=== PATIENT | female | born 1940 | race Caucasian/White ===

== ENCOUNTER 2017-01-28 18:49 | Emergency (ER) | payer MEDICARE, MEDICAID ==
[~2017-01-28] VITALS: Ht 152.4 cm; Wt 70.3 kg
[2017-01-28 19:17] LABS: Basophils # (auto) 0.1 uL; Basophils % (auto) 0.4 % (0.0-2.0); Eosinophils # (auto) 0 uL; Eosinophils % (auto) 0.3 % (0.0-7.0); Hematocrit 40.5 % (36.0-46.0); Hemoglobin 13.3 g/dL (12.2-16.2); Lymphocytes # (auto) 2.8 uL; Lymphocytes % (auto) 19.6 % (10.0-50.0); Mean Corpuscular Hemoglobin 31.4 pg (28.0-32.0); Mean Corpuscular Hgb Conc. 32.9 g/dL (32.0-36.0); Mean Corpuscular Volume 95.5 fL (80.0-100.0); Mean Platelet Volume 7.9 fL (7.4-10.4); Monocytes # (auto) 0.8 uL; Monocytes % (auto) 5.7 % (0.0-12.0); Neutrophils # (auto) 10.4 uL; Platelet Count (auto) 284 10^3/uL (140-450); Red Cell Distribution Width 14.1 % (11.6-16.0); White Blood Cell 14.1 10^3/uL (4.4-10.8)
[2017-01-28 19:44] LABS: Alkaline Phosphatase 70 U/L (45-117); Anion Gap 9 (5-15); Aspartate Aminotransferase 22 U/L (15-37); BUN/Creatinine Ratio 21.4; Bilirubin, Total 0.4 mg/dL (0.2-1.0); Blood Urea Nitrogen 15 mg/dL (7-18); Calcium 8.9 mg/dL (8.5-10.1); Carbon Dioxide 29 mmol/L (21-32); Chloride 100 mmol/L (98-107); GFR African American 105 mL/min; GFR Non-African American 87 mL/min; Glucose 111 mg/dL (74-106); Potassium 3.4 mmol/L (3.5-5.1); Sodium 138 mmol/L (136-145); Total Protein 7.8 g/dL (6.4-8.2)
[2017-01-29 00:16] VITALS: BP 159/79
== END 2017-01-29 00:47 | disposition left against medical advice (07) ==
LOC: ER 18:49
DX: R11.2 Nausea with vomiting, unspecified (principal); Z53.29 Procedure and treatment not carried out because of patient's decision for other reasons; Z88.1 Allergy status to other antibiotic agents; Z88.6 Allergy status to analgesic agent
CPT/HCPCS: 36415; 80053; 84484; 85025; 93005; 94761

== ENCOUNTER 2018-01-22 21:24 | Emergency (ER) | payer MEDICARE, MEDICAID ==
[~2018-01-22] VITALS: Ht 147.3 cm; Wt 68.5 kg
[2018-01-22 21:45] VITALS: BP 195/131
[2018-01-22] MEDS ORDERED: cloNIDine HCL 0.1 MG TAB ONE (21:54)
[2018-01-22] MEDS ORDERED: cloNIDine HCL 0.1 MG TAB PO ONE (22:15)
[2018-01-22 22:16] LABS: Urine Bacteria NONE SEEN /hpf (None Seen); Urine Blood Negative /uL (Negative); Urine Specific Gravity 1.004 (1.001-1.035); Urine WBC <1 /hpf (0 - 5)
[2018-01-23 00:09] LABS: Basophils # (auto) 0.1 uL; Basophils % (auto) 0.9 % (0.0-2.0); Eosinophils # (auto) 0.2 uL; Eosinophils % (auto) 1.9 % (0.0-7.0); Hematocrit 36.7 % (36.0-46.0); Hemoglobin 12.3 g/dL (12.2-16.2); Lymphocytes # (auto) 3.6 uL; Lymphocytes % (auto) 43.5 % (10.0-50.0); Mean Corpuscular Hemoglobin 32.9 pg (28.0-32.0); Mean Corpuscular Hgb Conc. 33.4 g/dL (32.0-36.0); Mean Corpuscular Volume 98.5 fL (80.0-100.0); Monocytes # (auto) 0.8 uL; Monocytes % (auto) 9.7 % (0.0-12.0); Neutrophils # (auto) 3.7 uL; Platelet Count (auto) 230 10^3/uL (140-450); Red Blood Cells 3.73 10^6/uL (4.0-5.20); Red Cell Distribution Width 13.4 % (11.8-14.3); White Blood Cell 8.3 10^3/uL (4.4-10.8)
[2018-01-23 00:12] LABS: Alanine Aminotransferase 35 U/L (13-56); Albumin 3.4 g/dL (3.4-5.0); Anion Gap 11 (5-15); Aspartate Aminotransferase 27 U/L (15-37); BUN/Creatinine Ratio 33.9; Blood Urea Nitrogen 19 mg/dL (7-18); Calcium 8.5 mg/dL (8.5-10.1); Carbon Dioxide 24 mmol/L (21-32); Chloride 105 mmol/L (98-107); GFR African American 136 mL/min; GFR Non-African American 112 mL/min; Glucose 103 mg/dL (74-106); Lipase 157 U/L (73-393); Magnesium 2.2 mg/dL (1.6-2.6); Potassium 3.7 mmol/L (3.5-5.1); Sodium 140 mmol/L (136-145)
[2018-01-23 00:16] LABS: Alkaline Phosphatase 59 U/L (45-117); Bilirubin, Total 0.2 mg/dL (0.2-1.0); Total Protein 7.1 g/dL (6.4-8.2)
== END 2018-01-23 01:48 | disposition left against medical advice (07) ==
LOC: ER 21:28
DX: R10.32 Left lower quadrant pain (principal); Z53.21 Procedure and treatment not carried out due to patient leaving prior to being seen by health care provider
CPT/HCPCS: 36415; 71045; 80053; 81001; 83605; 83690; 83735; 84484; 85025; 93005

== ENCOUNTER 2023-04-15 02:49 | Inpatient (IN) | payer MEDICARE, MEDICAID ==
[~2023-04-15] VITALS: Ht 172.7 cm; Wt 69.4 kg
[2023-04-15 03:40] LABS: Basophils # (auto) 0.1 10 ^3/uL (0-0.2); Basophils % (auto) 0.8 % (0.0-2.0); Eosinophils # (auto) 0.1 10 ^3/uL (0-0.8); Eosinophils % (auto) 0.9 % (0.0-7.0); Hematocrit 35.2 % (36.0-46.0); Hemoglobin 11.9 g/dL (12.2-16.2); Lymphocytes # (auto) 2.7 10 ^3/uL (0.4-5.4); Lymphocytes % (auto) 33.5 % (10.0-50.0); Mean Corpuscular Hemoglobin 32.9 pg (28.0-32.0); Mean Corpuscular Hgb Conc. 33.7 g/dL (32.0-36.0); Mean Corpuscular Volume 97.7 fL (80.0-100.0); Monocytes % (auto) 12.2 % (0.0-12.0); Neutrophils # (auto) 4.3 10 ^3/uL (1.6-8.6); Neutrophils % (auto) 52.6 % (37.0-80.0); Nucleated Red Blood Cells % 0.1 %; Red Blood Cells 3.61 10^6/uL (4.0-5.20); Red Cell Distribution Width 13.9 % (11.8-14.3); White Blood Cell 8.1 10^3/uL (4.4-10.8)
[2023-04-15 03:42] LABS: Albumin 3.3 g/dL (3.4-5.0); Calcium 8.6 mg/dL (8.5-10.1); Potassium 3.3 mmol/L (3.5-5.1)
[2023-04-15 03:45] LABS: BUN/Creatinine Ratio 26.2 (10.0-20.0); Bilirubin, Total 0.3 mg/dL (0.2-1.0); Total Protein 6.7 g/dL (6.4-8.2)
[2023-04-15 06:22] VITALS: PULSE 97; RESP 10; O2SAT 97
[2023-04-15] MEDS ORDERED: POTASSIUM CHL 20 Meq TABLET PO ONE (06:45)
[2023-04-15 08:33] VITALS: PULSE 68; RESP 16
[2023-04-15] MEDS ORDERED: ACETAMINOPHEN 325 MG TAB PO PRN (11:15)
[2023-04-15] MEDS ORDERED: NITROGLYCERIN 0.4 MG SL TAB SL PRN (11:15)
[2023-04-15] MEDS ORDERED: MORPHINE SULFATE 4 MG/ML SYR/VIAL IV PRN (11:15)
[2023-04-15] MEDS ORDERED: ONDANSETRON HCL 4 MG/2 ML VIAL IV PRN (11:15)
[2023-04-15 11:59] LABS: INR 1.05 (0.9-1.15)
[2023-04-15] MEDS ORDERED: hydrALAZINE HCL 20 MG/ML VL IV PRN (13:00)
[2023-04-15] MEDS ORDERED: AMIODARONE HCL 200 MG TAB PO ONE (13:00)
[2023-04-15] MEDS ORDERED: amLODIPine BESYLATE 5 MG TAB PO ONE (13:00)
[2023-04-15 15:11] LABS: Magnesium 2.4 mg/dL (1.6-2.6)
[2023-04-15 16:36] LABS: Urine Bacteria FEW /hpf (None Seen); Urine Blood TRACE /uL (Negative); Urine Specific Gravity 1.014 (1.001-1.035); Urine WBC 2 /hpf (0 - 5)
[2023-04-15 18:27] VITALS: BP 150/57; PULSE 72; RESP 18; TEMP 97.9; O2SAT 98
[2023-04-15 20:00] VITALS: PULSE 76
[2023-04-15 22:00] VITALS: BP 116/38; PULSE 68; RESP 14; TEMP 98; O2SAT 99
[2023-04-15] MEDS ORDERED: ENOXAPARIN SOD 80 MG/0.8ML SYRINGE SC SCH (22:00)
[2023-04-15] MEDS: ATORVASTATIN 20 MG TAB PO SCH ×2 (22:00→22:09)
[2023-04-15] MEDS: SACUBITRIL-VALSARTAN 24mg/26mg TAB PO SCH ×2 (22:00→22:09)
[2023-04-15] MEDS: APIXABAN 2.5 MG TAB PO SCH ×2 (22:00→22:10)
[2023-04-15] MEDS: AMIODARONE HCL 200 MG TAB PO SCH ×2 (22:00→22:10)
[2023-04-16 05:00] VITALS: BP 158/66; PULSE 69; RESP 16; TEMP 98.1; O2SAT 100
[2023-04-16 07:25] LABS: Basophils # (auto) 0.1 10 ^3/uL (0-0.2); Basophils % (auto) 0.8 % (0.0-2.0); Eosinophils # (auto) 0.1 10 ^3/uL (0-0.8); Eosinophils % (auto) 0.9 % (0.0-7.0); Hematocrit 37.9 % (36.0-46.0); Hemoglobin 12.9 g/dL (12.2-16.2); Lymphocytes # (auto) 2.3 10 ^3/uL (0.4-5.4); Lymphocytes % (auto) 31.2 % (10.0-50.0); Mean Corpuscular Hgb Conc. 34.1 g/dL (32.0-36.0); Mean Corpuscular Volume 96.9 fL (80.0-100.0); Monocytes # (auto) 0.7 10 ^3/uL (0-1.3); Monocytes % (auto) 9.2 % (0.0-12.0); Neutrophils # (auto) 4.3 10 ^3/uL (1.6-8.6); Neutrophils % (auto) 57.9 % (37.0-80.0); Nucleated Red Blood Cells % 0.1 %; Red Blood Cells 3.91 10^6/uL (4.0-5.20); White Blood Cell 7.4 10^3/uL (4.4-10.8)
[2023-04-16 07:30] VITALS: PULSE 71
[2023-04-16 07:45] LABS: Albumin 3.4 g/dL (3.4-5.0); Calcium 8.7 mg/dL (8.5-10.1); Potassium 3.7 mmol/L (3.5-5.1)
[2023-04-16 07:50] LABS: Bilirubin, Total 0.4 mg/dL (0.2-1.0)
[2023-04-16] MEDS: APIXABAN 2.5 MG TAB PO SCH (08:28)
[2023-04-16] MEDS: SACUBITRIL-VALSARTAN 24mg/26mg TAB PO SCH (08:28)
[2023-04-16] MEDS: AMIODARONE HCL 200 MG TAB PO SCH (08:37)
[2023-04-16] MEDS ORDERED: APIX2.5T PO (09:09)
[2023-04-16] MEDS ORDERED: SACU1TAB (09:09)
[2023-04-16] MEDS ORDERED: AMIO200T13 PO (09:09)
[2023-04-16] MEDS ORDERED: PANT40T PO (09:09)
[2023-04-16] MEDS ORDERED: CLON0.1T PO (09:13)
[2023-04-16] MEDS ORDERED: LEV25T PO (09:13)
[2023-04-16] MEDS ORDERED: ATOR40TA52 PO (09:13)
[2023-04-16] MEDS ORDERED: METO-289 PO (09:13)
[2023-04-16] MEDS ORDERED: ASPI-325 PO (09:13)
[2023-04-16] MEDS ORDERED: AMLO1TAB22 PO (09:13)
[2023-04-16] MEDS ORDERED: FURO1TAB31 PO (09:13)
[2023-04-16] MEDS ORDERED: METO25TA5 PO (09:33)
[2023-04-16] MEDS ORDERED: SACU1TAB PO (09:34)
[2023-04-16] MEDS ORDERED: MEMA1TAB5 PO (09:35)
[2023-04-16] MEDS ORDERED: ASPirin 81 mg TAB PO SCH (10:00)
[2023-04-16] MEDS ORDERED: PANTOPRAZOLE 40 MG/10 ML VIAL INJ IV SCH (10:00)
[2023-04-16] MEDS ORDERED: amLODIPine BESYLATE 5 MG TAB PO SCH (10:00)
[2023-04-16 12:13] VITALS: BP 133/64; PULSE 74; RESP 18; O2SAT 98
== END 2023-04-16 12:40 | disposition home or self-care (01) | DRG 203 ==
LOC: EDBD 02:49 → ER 02:49 → TELE 11:16 → TELE-EAST 17:22
PROVIDERS: ADMIT Internal Medicine; ATTEND Internal Medicine
DX: M94.0 Chondrocostal junction syndrome [Tietze] (principal); N17.9 Acute kidney failure, unspecified; D64.9 Anemia, unspecified; I44.7 Left bundle-branch block, unspecified; Z95.1 Presence of aortocoronary bypass graft; E03.9 Hypothyroidism, unspecified; E78.5 Hyperlipidemia, unspecified; E87.6 Hypokalemia; N18.9 Chronic kidney disease, unspecified; I16.0 Hypertensive urgency; I12.9 Hypertensive chronic kidney disease with stage 1 through stage 4 chronic kidney disease, or unspecified chronic kidney disease; I25.10 Atherosclerotic heart disease of native coronary artery without angina pectoris; I25.2 Old myocardial infarction; Z79.01 Long term (current) use of anticoagulants; Z95.3 Presence of xenogenic heart valve; Z88.1 Allergy status to other antibiotic agents; Z88.5 Allergy status to narcotic agent; Z88.8 Allergy status to other drugs, medicaments and biological substances; I69.320 Aphasia following cerebral infarction
CPT/HCPCS: 36415; 70450; 71045; 71250; 74176; 80053; 80061; 81001; 83036; 83735; 83880; 84443; 84484; 85025; 85610; 87081; 93005; 93306; G0378

== ENCOUNTER 2023-06-21 09:41 | Emergency (ER) | payer MEDICAID, MEDICARE ==
[~2023-06-21] VITALS: Ht 152.4 cm; Wt 70.0 kg
[~2023-06-21 09:41] MED LIST: AMIO200T13 PO; AMLO1TAB22 PO; APIX2.5T PO; ASPI-325 PO; ATOR40TA52 PO; CLON0.1T PO; FURO1TAB31 PO; LEV25T PO; MEMA1TAB5 PO; METO25TA5 PO; PANT40T PO; SACU1TAB PO
[2023-06-21 10:49] VITALS: BP 158/56; PULSE 57; RESP 20; TEMP 97.4; O2SAT 97
[2023-06-21] MEDS ORDERED: AUG875T PO (11:01)
[2023-06-21] MEDS ORDERED: METH4PAK PO (11:01)
== END 2023-06-21 11:22 | disposition home or self-care (01) ==
LOC: ER 09:41
DX: H66.91 Otitis media, unspecified, right ear (principal); I10 Essential (primary) hypertension; Z88.1 Allergy status to other antibiotic agents; Z88.6 Allergy status to analgesic agent; Z86.73 Personal history of transient ischemic attack (TIA), and cerebral infarction without residual deficits

== ENCOUNTER 2024-01-16 18:39 | Emergency (ER) | payer MEDICARE, MEDICAID ==
[~2024-01-16] VITALS: Ht 152.4 cm; Wt 70.0 kg
[~2024-01-16 18:39] MED LIST changes: +AUG875T PO; +METH4PAK PO
[2024-01-16 18:45] VITALS: BP 129/48; RESP 18; O2SAT 99
[2024-01-16 18:58] VITALS: PULSE 60
[2024-01-16 19:48] LABS: Basophils # (auto) 0.1 10 ^3/uL (0-0.2); Basophils % (auto) 0.9 % (0.0-2.0); Eosinophils # (auto) 0 10 ^3/uL (0-0.8); Eosinophils % (auto) 0.6 % (0.0-7.0); Hematocrit 34.7 % (36.0-46.0); Hemoglobin 11.2 g/dL (12.2-16.2); Lymphocytes # (auto) 2.1 10 ^3/uL (0.4-5.4); Lymphocytes % (auto) 27.6 % (10.0-50.0); Mean Corpuscular Hemoglobin 28.6 pg (28.0-32.0); Mean Corpuscular Hgb Conc. 32.3 g/dL (32.0-36.0); Mean Corpuscular Volume 88.6 fL (80.0-100.0); Monocytes # (auto) 0.8 10 ^3/uL (0-1.3); Monocytes % (auto) 10.7 % (0.0-12.0); Neutrophils # (auto) 4.5 10 ^3/uL (1.6-8.6); Neutrophils % (auto) 60.2 % (37.0-80.0); Red Blood Cells 3.91 10^6/uL (4.0-5.20); Red Cell Distribution Width 15.7 % (11.8-14.3); White Blood Cell 7.5 10^3/uL (4.4-10.8)
[2024-01-16 20:04] LABS: Alanine Aminotransferase 44 U/L (7-40); Albumin 4.3 g/dL (3.2-4.8); Alkaline Phosphatase 77 U/L (46-116); Anion Gap 6 (5-15); Aspartate Aminotransferase 38 U/L (13-40); BUN/Creatinine Ratio 11.5 (10.0-20.0); Blood Urea Nitrogen 11 mg/dL (9-23); Calcium 9.3 mg/dL (8.7-10.4); Carbon Dioxide 29 mmol/L (20-30); Chloride 104 mmol/L (98-107); Glucose 108 mg/dL (74-106); Magnesium 2.1 mg/dL (1.6-2.6); Potassium 3.8 mmol/L (3.5-5.1); Sodium 139 mmol/L (136-145)
[2024-01-16 20:05] LABS: Bilirubin, Total 0.4 mg/dL (0.2-1.0); Total Protein 6.6 g/dL (5.7-8.2)
[2024-01-16 20:06] LABS: INR 1.04 (0.9-1.15); Partial Thromboplastin Time 27.1 SEC (24.5-34.5)
[2024-01-16] MEDS ORDERED: SODIUM CHLORIDE 0.9% 1,000 ML IV ONE (21:00)
== END 2024-01-16 22:00 | disposition left against medical advice (07) ==
LOC: ER 18:39 → EDUNIT# 18:39 → EDBD 18:39 → ER 22:00
DX: R51.9 Headache, unspecified (principal); R06.02 Shortness of breath; I10 Essential (primary) hypertension; Z86.73 Personal history of transient ischemic attack (TIA), and cerebral infarction without residual deficits; Z98.890 Other specified postprocedural states
CPT/HCPCS: 36415; 70450; 71045; 80053; 83735; 84484; 85025; 85610; 85730; 93005

== ENCOUNTER 2024-01-25 10:16 | Inpatient (IN) | payer MEDICARE, MEDICAID ==
[~2024-01-25] VITALS: Ht 152.4 cm; Wt 79.4 kg
[2024-01-25 10:41] VITALS: O2SAT 95
[2024-01-25 10:43] LABS: Basophils # (auto) 0.1 10 ^3/uL (0-0.2); Basophils % (auto) 0.7 % (0.0-2.0); Eosinophils # (auto) 0 10 ^3/uL (0-0.8); Eosinophils % (auto) 0.2 % (0.0-7.0); Hematocrit 34.2 % (36.0-46.0); Hemoglobin 11.1 g/dL (12.2-16.2); Lymphocytes # (auto) 2.3 10 ^3/uL (0.4-5.4); Lymphocytes % (auto) 22.4 % (10.0-50.0); Mean Corpuscular Hemoglobin 28.9 pg (28.0-32.0); Mean Corpuscular Hgb Conc. 32.4 g/dL (32.0-36.0); Mean Corpuscular Volume 89.2 fL (80.0-100.0); Monocytes % (auto) 9.8 % (0.0-12.0); Neutrophils # (auto) 6.9 10 ^3/uL (1.6-8.6); Neutrophils % (auto) 66.9 % (37.0-80.0); Red Blood Cells 3.83 10^6/uL (4.0-5.20); White Blood Cell 10.4 10^3/uL (4.4-10.8)
[2024-01-25 11:02] LABS: Alanine Aminotransferase 50 U/L (7-40); Albumin 4.2 g/dL (3.2-4.8); Alkaline Phosphatase 75 U/L (46-116); Anion Gap 6 (5-15); Aspartate Aminotransferase 48 U/L (13-40); BUN/Creatinine Ratio 15.3 (10.0-20.0); Bilirubin, Total 0.5 mg/dL (0.2-1.0); Blood Urea Nitrogen 13 mg/dL (9-23); Calcium 9.3 mg/dL (8.5-10.1); Carbon Dioxide 28 mmol/L (20-30); Chloride 106 mmol/L (98-107); Glucose 123 mg/dL (74-106); Potassium 3.6 mmol/L (3.5-5.1); Sodium 140 mmol/L (136-145); Total Protein 6.6 g/dL (5.7-8.2)
[2024-01-25] MEDS ORDERED: ACETAMINOPHEN 325 MG TAB PO PRN (11:45)
[2024-01-25] MEDS: FUROSEMIDE 20 MG/2 ML VIAL IV ONE (11:57)
[2024-01-25 12:28] LABS: Urine Bacteria None Seen /hpf (None Seen)
[2024-01-25 12:46] LABS: Urine Blood Negative /uL (Negative); Urine Clarity Clear (Clear); Urine Color Colorless (Yellow); Urine Protein, UAD Negative (Negative); Urine Specific Gravity 1.005 (1.001-1.035); Urine Urobilinogen Normal (Negative); Urine WBC <1 /hpf (0 - 5)
[2024-01-25] MEDS: cloNIDine HCL 0.1 MG TAB PO SCH (14:17)
[2024-01-25 17:34] VITALS: BP 138/52; PULSE 65; RESP 16; TEMP 98; O2SAT 100
[2024-01-25 17:44] VITALS: BP 138/52; PULSE 66; RESP 18; TEMP 97.7; O2SAT 98
[2024-01-25 20:00] VITALS: PULSE 64; RESP 14; O2SAT 93
[2024-01-25 21:00] VITALS: BP 142/56; PULSE 64; RESP 14; TEMP 98.2; O2SAT 93
[2024-01-25] MEDS: SACUBITRIL-VALSARTAN 24mg/26mg TAB PO SCH (22:20)
[2024-01-25] MEDS: ATORVASTATIN 20 MG TAB PO SCH (22:20)
[2024-01-25] MEDS: METOPROLOL TARTRATE 25 MG TAB PO SCH (22:20)
[2024-01-25] MEDS: APIXABAN 2.5 MG TAB PO SCH (22:21)
[2024-01-26] VITALS (8 sets, daily range): BP systolic 99–148; BP diastolic 50–64; PULSE 53–87; RESP 14–18; TEMP 97.4–98.7; O2SAT 94–98
[2024-01-26 05:47] LABS: Basophils # (auto) 0.1 10 ^3/uL (0-0.2); Basophils % (auto) 0.9 % (0.0-2.0); Eosinophils # (auto) 0.1 10 ^3/uL (0-0.8); Eosinophils % (auto) 1.1 % (0.0-7.0); Hematocrit 32.2 % (36.0-46.0); Hemoglobin 10.6 g/dL (12.2-16.2); Lymphocytes # (auto) 2.4 10 ^3/uL (0.4-5.4); Mean Corpuscular Hemoglobin 29.2 pg (28.0-32.0); Mean Corpuscular Volume 88.5 fL (80.0-100.0); Monocytes % (auto) 11.9 % (0.0-12.0); Neutrophils # (auto) 4.9 10 ^3/uL (1.6-8.6); Neutrophils % (auto) 58.1 % (37.0-80.0); Nucleated Red Blood Cells % 0.1 %; Red Blood Cells 3.63 10^6/uL (4.0-5.20); Red Cell Distribution Width 15.6 % (11.8-14.3); White Blood Cell 8.5 10^3/uL (4.4-10.8)
[2024-01-26 06:02] LABS: Alanine Aminotransferase 61 U/L (7-40); Alkaline Phosphatase 69 U/L (46-116); Anion Gap 6 (5-15); Aspartate Aminotransferase 58 U/L (13-40); BUN/Creatinine Ratio 15.2 (10.0-20.0); Blood Urea Nitrogen 14 mg/dL (9-23); Calcium 9.2 mg/dL (8.5-10.1); Carbon Dioxide 30 mmol/L (20-30); Chloride 105 mmol/L (98-107); Glucose 101 mg/dL (74-106); Potassium 3.5 mmol/L (3.5-5.1); Sodium 141 mmol/L (136-145)
[2024-01-26 06:03] LABS: Bilirubin, Total 0.5 mg/dL (0.2-1.0); Total Protein 6.2 g/dL (5.7-8.2)
[2024-01-26] MEDS: amLODIPine BESYLATE 5 MG TAB PO SCH (10:00)
[2024-01-26] MEDS: MEMANTINE HYDROCHLORIDE PO SCH (10:00)
[2024-01-26] MEDS ORDERED: PATIENTS OWN MEDICATION (Atorvastatin Calcium 1 TAB) PO SCH (10:00)
[2024-01-26] MEDS: ASPirin-EC 81 mg tab PO SCH (10:34)
[2024-01-26] MEDS: AMIODARONE HCL 200 MG TAB PO SCH (10:34)
[2024-01-26] MEDS: LEVOTHYROXINE SODIUM 25 MCG TAB PO SCH (10:35)
[2024-01-26] MEDS: PANTOPRAZOLE 40 MG TAB PO SCH (10:35)
[2024-01-26] MEDS: FUROSEMIDE 40 MG/4 ML VIAL IV ONE (17:48)
[2024-01-27] VITALS (8 sets, daily range): BP systolic 114–154; BP diastolic 51–86; PULSE 60–74; RESP 16–20; TEMP 97.6–98.2; O2SAT 94–98
[2024-01-27] MEDS: FUROSEMIDE 20 MG/2 ML VIAL IV SCH (06:47)
[2024-01-27] MEDS: FUROSEMIDE 20 MG TAB PO SCH (18:42)
[2024-01-28 01:00] VITALS: BP 125/71; PULSE 62; RESP 17; TEMP 97.5; O2SAT 94
[2024-01-28 05:00] VITALS: BP 130/61; PULSE 61; RESP 17; TEMP 98.4; O2SAT 94
[2024-01-28 08:00] VITALS: PULSE 65; PULSE 70; RESP 18; O2SAT 94
[2024-01-28 09:00] VITALS: BP 117/40; PULSE 60; RESP 16; TEMP 98.2; O2SAT 97
== END 2024-01-28 12:15 | disposition home health service (06) | DRG 194 ==
LOC: ER 10:16 → EDBD 10:16 → OVERFLOW 11:47 → WEST WING 17:31 → TELE-WESTW 01-26 16:49
PROVIDERS: ADMIT Family Medicine; ATTEND Family Medicine
DX: I11.0 Hypertensive heart disease with heart failure (principal); J96.21 Acute and chronic respiratory failure with hypoxia; F03.90 Unspecified dementia, unspecified severity, without behavioral disturbance, psychotic disturbance, mood disturbance, and anxiety; I50.33 Acute on chronic diastolic (congestive) heart failure; I48.0 Paroxysmal atrial fibrillation; I69.320 Aphasia following cerebral infarction; E78.00 Pure hypercholesterolemia, unspecified; E03.9 Hypothyroidism, unspecified; I44.7 Left bundle-branch block, unspecified; I25.10 Atherosclerotic heart disease of native coronary artery without angina pectoris; D63.8 Anemia in other chronic diseases classified elsewhere; E66.9 Obesity, unspecified; Z95.1 Presence of aortocoronary bypass graft; Z88.1 Allergy status to other antibiotic agents; Z88.5 Allergy status to narcotic agent; Z79.899 Other long term (current) drug therapy; Z80.49 Family history of malignant neoplasm of other genital organs; Z79.01 Long term (current) use of anticoagulants; Z95.2 Presence of prosthetic heart valve; Z68.34 Body mass index [BMI] 34.0-34.9, adult
CPT/HCPCS: 36415; 71045; 76700; 80053; 81001; 83880; 84484; 85025; 87081; 93005; 93306; 97110; 97116; 97163; G0378

== ENCOUNTER 2024-06-13 09:44 | Inpatient (IN) | payer MEDICARE, MEDICAID ==
[~2024-06-13] VITALS: Ht 152.4 cm; Wt 77.5 kg
[~2024-06-13 09:44] MED LIST changes: -AUG875T PO; -METH4PAK PO
[2024-06-13] MEDS: IOHEXOL 350 MG/ML 100ML IJ ONE (11:49)
[2024-06-13 11:58] LABS: Basophils # (auto) 0.1 10 ^3/uL (0-0.2); Basophils % (auto) 0.8 % (0.0-2.0); Eosinophils # (auto) 0 10 ^3/uL (0-0.8); Eosinophils % (auto) 0.4 % (0.0-7.0); Hematocrit 32.1 % (36.0-46.0); Hemoglobin 10.7 g/dL (12.2-16.2); Lymphocytes # (auto) 1.5 10 ^3/uL (0.4-5.4); Lymphocytes % (auto) 16.8 % (10.0-50.0); Mean Corpuscular Hgb Conc. 33.2 g/dL (32.0-36.0); Mean Corpuscular Volume 87.2 fL (80.0-100.0); Monocytes # (auto) 1.1 10 ^3/uL (0-1.3); Monocytes % (auto) 12.8 % (0.0-12.0); Neutrophils # (auto) 6.1 10 ^3/uL (1.6-8.6); Neutrophils % (auto) 69.2 % (37.0-80.0); Nucleated Red Blood Cells % 0.1 %; Platelet Count (auto) 207 10^3/uL (140-450); Red Blood Cells 3.68 10^6/uL (4.0-5.20); Red Cell Distribution Width 16.7 % (11.8-14.3); White Blood Cell 8.9 10^3/uL (4.4-10.8)
[2024-06-13 12:11] LABS: INR 1.08 (0.9-1.15); Prothrombin Time 11.4 sec (9.3-11.8)
[2024-06-13 12:29] LABS: Alanine Aminotransferase 44 U/L (7-40); Alkaline Phosphatase 76 U/L (46-116); Anion Gap 5 (5-15); Aspartate Aminotransferase 43 U/L (13-40); BUN/Creatinine Ratio 16.3 (10.0-20.0); Blood Urea Nitrogen 14 mg/dL (9-23); Calcium 8.8 mg/dL (8.7-10.4); Carbon Dioxide 27 mmol/L (20-30); Chloride 106 mmol/L (98-107); Glucose 124 mg/dL (74-106); Potassium 3.9 mmol/L (3.5-5.1); Sodium 138 mmol/L (136-145)
[2024-06-13 12:30] LABS: Bilirubin, Total 0.3 mg/dL (0.2-1.0)
[2024-06-13] MEDS ORDERED: ONDANSETRON HCL 4 MG/2 ML VIAL IV PRN (14:30)
[2024-06-13] MEDS ORDERED: NITROGLYCERIN 0.4 MG SL TAB SL PRN (14:30)
[2024-06-13] MEDS ORDERED: MORPHINE SULFATE INJ 2 MG/ml SYRG IV PRN (14:30)
[2024-06-13] MEDS: TETANUS-DIPTH-ACEL PERTUSSIS 0.5ML SYR Tdap IM ONE (15:11)
[2024-06-13] MEDS: ceFAZolin 1GM/50ML 50 ML IV ONE (15:16)
[2024-06-13 15:26] VITALS: PULSE 57; RESP 16; O2SAT 97
[2024-06-13] MEDS: SACUBITRIL-VALSARTAN 24mg/26mg TAB PO SCH (22:40)
[2024-06-13] MEDS: ATORVASTATIN 20 MG TAB PO SCH (22:41)
[2024-06-13] MEDS: APIXABAN 2.5 MG TAB PO SCH (22:41)
[2024-06-13] MEDS: METOPROLOL TARTRATE 25 MG TAB PO SCH (22:41)
[2024-06-13 22:47] VITALS: RESP 16; O2SAT 96
[2024-06-13] MEDS ORDERED: POTA-220 PO (23:01)
[2024-06-13] MEDS ORDERED: CYA100I IM (23:01)
[2024-06-13] MEDS ORDERED: LORazepam 2MG/ML-1ML VIAL IV PRN (23:30)
[2024-06-13 23:45] LABS: Triglycerides 148 mg/dL (< 150)
[2024-06-13 23:46] LABS: LDL Cholesterol 81 mg/dL (< 100)
[2024-06-13 23:47] LABS: Cholesterol 144 mg/dL (< 200); HDL Cholesterol 49 mg/dL (40-59)
[2024-06-13 23:50] LABS: Folate (Folic Acid) 12.1 ng/mL (>5.38)
[2024-06-13 23:51] LABS: Free T4 (Free Thyroxine) 1.3 ng/dL (0.89-1.76)
[2024-06-14] VITALS (9 sets, daily range): BP systolic 110–157; BP diastolic 46–85; PULSE 59–66; RESP 16–17; TEMP 97.4–98.4; O2SAT 94–97
[2024-06-14] MEDS: LEVOTHYROXINE SODIUM 25 MCG TAB PO SCH (06:00)
[2024-06-14] MEDS: FUROSEMIDE 40 MG TAB PO SCH (10:21)
[2024-06-14] MEDS: amLODIPine BESYLATE 5 MG TAB PO SCH (10:21)
[2024-06-14] MEDS: PANTOPRAZOLE 40 MG TAB PO SCH (10:22)
[2024-06-14] MEDS: AMIODARONE HCL 200 MG TAB PO SCH (10:22)
[2024-06-14] MEDS: MEMANTINE HCL 5 MG TAB PO SCH (10:26)
[2024-06-14 12:08] LABS: Urine Bacteria None Seen /hpf (None Seen)
[2024-06-14 12:20] LABS: Urine Blood Negative /uL (Negative); Urine Clarity Clear (Clear); Urine Color Colorless (Yellow); Urine Protein, UAD Negative (Negative); Urine Specific Gravity 1.008 (1.001-1.035); Urine Urobilinogen Normal (Negative); Urine WBC 3 /hpf (0 - 5)
[2024-06-14 13:54] LABS: Basophils # (auto) 0.1 10 ^3/uL (0-0.2); Basophils % (auto) 0.6 % (0.0-2.0); Eosinophils # (auto) 0 10 ^3/uL (0-0.8); Eosinophils % (auto) 0.4 % (0.0-7.0); Hematocrit 34.9 % (36.0-46.0); Hemoglobin 11.8 g/dL (12.2-16.2); Lymphocytes % (auto) 20.8 % (10.0-50.0); Mean Corpuscular Hemoglobin 29.4 pg (28.0-32.0); Mean Corpuscular Hgb Conc. 33.7 g/dL (32.0-36.0); Mean Corpuscular Volume 87.3 fL (80.0-100.0); Monocytes # (auto) 0.7 10 ^3/uL (0-1.3); Monocytes % (auto) 7.5 % (0.0-12.0); Neutrophils # (auto) 6.8 10 ^3/uL (1.6-8.6); Neutrophils % (auto) 70.7 % (37.0-80.0); Platelet Count (auto) 221 10^3/uL (140-450); Red Cell Distribution Width 16.6 % (11.8-14.3); White Blood Cell 9.7 10^3/uL (4.4-10.8)
[2024-06-14 14:22] LABS: Alanine Aminotransferase 53 U/L (7-40); Alkaline Phosphatase 82 U/L (46-116); Anion Gap 8 (5-15); Calcium 9.5 mg/dL (8.7-10.4); Carbon Dioxide 27 mmol/L (20-30); Chloride 104 mmol/L (98-107); Potassium 3.3 mmol/L (3.5-5.1); Sodium 139 mmol/L (136-145)
[2024-06-14 14:23] LABS: BUN/Creatinine Ratio 12.4 (10.0-20.0); Blood Urea Nitrogen 11 mg/dL (9-23); Glucose 125 mg/dL (74-106)
[2024-06-14 14:25] LABS: Albumin 4.4 g/dL (3.2-4.8); Aspartate Aminotransferase 59 U/L (13-40); Bilirubin, Total 0.6 mg/dL (0.2-1.0); Total Protein 6.9 g/dL (5.7-8.2)
[2024-06-14] MEDS ORDERED: AMIO200T33 PO (14:28)
[2024-06-14] MEDS ORDERED: CYAN100088 PO (14:28)
[2024-06-14] MEDS ORDERED: POTA-180 PO (14:28)
[2024-06-14] MEDS ORDERED: LEVO25TA6 PO (14:28)
[2024-06-14] MEDS: EMPAGLIFLOZIN 10 MG TAB PO SCH (15:07)
[2024-06-14] MEDS: POTASSIUM CHLORIDE 40 MEQ, LIDOCAINE 1% (LOCAL ANESTH.) 4 ML in SODIUM CHL 0.9% 250 ML IV ONE (17:03)
[2024-06-15] VITALS (8 sets, daily range): BP systolic 99–120; BP diastolic 49–88; PULSE 52–97; RESP 17–20; TEMP 97.5–98.2; O2SAT 88–97
[2024-06-15 14:53] LABS: Basophils # (auto) 0.1 10 ^3/uL (0-0.2); Basophils % (auto) 0.8 % (0.0-2.0); Eosinophils # (auto) 0.1 10 ^3/uL (0-0.8); Eosinophils % (auto) 0.7 % (0.0-7.0); Hematocrit 32.9 % (36.0-46.0); Hemoglobin 10.8 g/dL (12.2-16.2); Lymphocytes % (auto) 24.4 % (10.0-50.0); Mean Corpuscular Hemoglobin 29.3 pg (28.0-32.0); Mean Corpuscular Hgb Conc. 32.9 g/dL (32.0-36.0); Monocytes # (auto) 0.9 10 ^3/uL (0-1.3); Monocytes % (auto) 10.5 % (0.0-12.0); Neutrophils # (auto) 5.3 10 ^3/uL (1.6-8.6); Neutrophils % (auto) 63.6 % (37.0-80.0); Nucleated Red Blood Cells % 0.1 %; Platelet Count (auto) 223 10^3/uL (140-450); Red Cell Distribution Width 17.1 % (11.8-14.3); White Blood Cell 8.3 10^3/uL (4.4-10.8)
[2024-06-15 15:10] LABS: Alanine Aminotransferase 48 U/L (7-40); Alkaline Phosphatase 77 U/L (46-116); Anion Gap 8 (5-15); Aspartate Aminotransferase 52 U/L (13-40); BUN/Creatinine Ratio 10.7 (10.0-20.0); Blood Urea Nitrogen 11 mg/dL (9-23); Calcium 8.9 mg/dL (8.7-10.4); Carbon Dioxide 25 mmol/L (20-31); Chloride 105 mmol/L (98-107); Glucose 119 mg/dL (74-106); Potassium 3.7 mmol/L (3.5-5.1); Sodium 138 mmol/L (136-145)
[2024-06-15 15:12] LABS: Bilirubin, Total 0.3 mg/dL (0.2-1.0); Total Protein 6.3 g/dL (5.7-8.2)
[2024-06-16] VITALS (12 sets, daily range): BP systolic 101–147; BP diastolic 41–169; PULSE 45–74; RESP 15–20; TEMP 97.7–98.4; O2SAT 89–99
[2024-06-16 08:06] LABS: Anion Gap 10 (5-15); Carbon Dioxide 26 mmol/L (20-31); Chloride 104 mmol/L (98-107); Potassium 3.6 mmol/L (3.5-5.1); Sodium 140 mmol/L (136-145)
[2024-06-16 08:07] LABS: Calcium 9.3 mg/dL (8.7-10.4)
[2024-06-16 08:12] LABS: BUN/Creatinine Ratio 15.5 (10.0-20.0); Blood Urea Nitrogen 17 mg/dL (9-23); Glucose 96 mg/dL (74-106)
[2024-06-16] MEDS: MIDAZOLAM HCL 2MG/2ML 2ml VIAL (1mg/ml) IV ONE (09:50)
[2024-06-16] MEDS: LIDOCAINE VISCOUS 2% 15ML UD PO ONE (09:50)
[2024-06-16] MEDS: fentaNYL CITRATE 100 MCG/2 ML VL IV ONE (09:50)
[2024-06-16] MEDS: APIXABAN 5 MG TAB PO SCH (22:24)
[2024-06-17] VITALS (7 sets, daily range): BP systolic 98–128; BP diastolic 51–64; PULSE 59–76; RESP 14–20; TEMP 97.4–98.7; O2SAT 94–98
== END 2024-06-17 18:30 | disposition home health service (06) | DRG 45 ==
LOC: ER 09:44 → TELE 14:32 → TELE-CENTR 21:19
PROVIDERS: ADMIT Registered Nurse General Practice; ATTEND Internal Medicine
PROC: B24BZZ4 Ultrasonography of Heart with Aorta, Transesophageal (ICD-10-PCS; principal; 2024-06-16)
DX: I63.9 Cerebral infarction, unspecified (principal); I21.4 Non-ST elevation (NSTEMI) myocardial infarction; D68.69 Other thrombophilia; D63.8 Anemia in other chronic diseases classified elsewhere; G81.91 Hemiplegia, unspecified affecting right dominant side; R47.01 Aphasia; I48.0 Paroxysmal atrial fibrillation; S05.41XA Penetrating wound of orbit with or without foreign body, right eye, initial encounter; S09.8XXA Other specified injuries of head, initial encounter; E03.9 Hypothyroidism, unspecified; I11.0 Hypertensive heart disease with heart failure; E86.0 Dehydration; E78.5 Hyperlipidemia, unspecified; F03.90 Unspecified dementia, unspecified severity, without behavioral disturbance, psychotic disturbance, mood disturbance, and anxiety; E66.9 Obesity, unspecified; W18.39XA Other fall on same level, initial encounter; I25.10 Atherosclerotic heart disease of native coronary artery without angina pectoris; I08.0 Rheumatic disorders of both mitral and aortic valves; X58.XXXA Exposure to other specified factors, initial encounter; R74.01 Elevation of levels of liver transaminase levels; I50.32 Chronic diastolic (congestive) heart failure; Z95.1 Presence of aortocoronary bypass graft; Y93.89 Activity, other specified; Y92.89 Other specified places as the place of occurrence of the external cause; Y99.8 Other external cause status; Z95.3 Presence of xenogenic heart valve; Z79.899 Other long term (current) drug therapy; Z80.49 Family history of malignant neoplasm of other genital organs; Z79.01 Long term (current) use of anticoagulants; Z68.33 Body mass index [BMI] 33.0-33.9, adult; Z79.82 Long term (current) use of aspirin; Z88.1 Allergy status to other antibiotic agents
CPT/HCPCS: 36415; 70450; 70496; 70551; 71045; 80048; 80053; 80061; 81001; 82607; 82746; 82962; 83735; 83880; 84439; 84443; 84484; 85025; 85610; 85730; 90471; 90715; 93005; 93306; 93312; 96365; 97110; 97116; 97163; 99152; G0378; J2001; J2250

== ENCOUNTER 2024-12-30 10:11 | Inpatient (IN) | payer MEDICARE, MEDICAID ==
[~2024-12-30] VITALS: Ht 152.4 cm; Wt 72.7 kg
[~2024-12-30 10:11] MED LIST changes: -AMIO200T13 PO; +AMIO200T33 PO; -ASPI-325 PO; -CLON0.1T PO; +CYAN100088 PO; -LEV25T PO; +LEVO25TA6 PO; +POTA-180 PO
--- NOTE | 2024-12-30 10:19 | ED.PDOC ---
SOB-HPI HPI Comments HPI: 84 y/o obese F is BIBA for c/o shortness of breath and wheezing, today. Onset of symptoms at 4:30 a.m. this morning when she woke up. She comes from home. Per EMS, pulse ox initially was 90% at room air. Patient does not use oxygen at home. Then reported not to have any lung disease. En route to ED, patient was given two breathing treatment, with improvement to SpO2 of 100%. Patient denies any chest pain, palpitations, cough, congestion, fever, chills, or other associated symptoms at this time. Per EMS patient has dementia and is currently at baseline. 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 REVIEW OF SYSTEMS: CONSTITUTIONAL: Denies acute: fever, diaphoresis, chills, generalized weakness. HEAD: Denies acute: headache, photophobia Eyes: Denies acute: Double vision, vision loss, eye pain, eye discharge. EARS: Denies acute: tinnitus, hearing loss, ear discharge, ear pain, THROAT: Denies acute: sore throat, swelling, difficulty swallowing , pain with swallowing, change in voice. NECK: Denies acute: neck pain, neck swelling, stiff neck. HEART: Denies acute : chest pain, palpitations, LUNGS: Denies acute: wheezing, cough, hemoptysis ABDOMEN: Denies acute: abdominal pain, Nausea, Vomiting, diarrhea, melena , hematemesis, hematochezia SKIN: Denies acute: rash, redness, lesions, itchiness. EXTREMITIES: Denies acute: calf pain, numbness, tingling, weakness, denies pain in extremity. Denies acute: Low back pain. Neuro: Denies acute: focal neurological deficit, motor or sensory focal neurological deficit, tremors, seizure like activity, confusion, dizziness, change in mental status, loss of bowel or bladder function, cauda equina like symptoms. : Denies acute: dysuria, hematuria, flank pain, increase in urinary frequency. PSYCH: Denies acute: hallucination, suicidal ideation, homicidal ideation. FEMALE: Denies acute: abnormal vaginal bleeding, foul odor, unusual discharge. PHYSICAL EXAM: General: -----minimal---acute distress, awake and alert. Head: normocephalic, atraumatic. Neck: supple, trachea is midline, no swelling. Throat: Normal phonation. Eyes:, no erythema, no purulent discharge, no proptosis, no icterus. Heart: regular rate, regular rhythm, no significant murmur appreciated. Lungs: Mild respiratory distress, Able to speak in full sentences. Minimal wheezing, no rhonchi, no crackles. No stridors Patient states improvement since the breathing treatment she received earlier. Abdomen: non tender to palpation, non distended, soft, no guarding, no rebound, + bowel sounds. Neuro: Awake, Alert, oriented to name, self, situation, follows commands GCS=15. Speech is normal. Skin: no petechia, no purpura, no cyanosis, non-pale, not jaundice. Lower extremities: --1/4 b/l - Pitting edema no deformity, no focal swelling, no calf TTP. Makes eye contact. moves all four extremities. Face: no apparent facial droop. 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 Was a procedure done?: No Differential Dx Differential Diagnosis: Other (DDx include ACS, unstable angina, anxiety, PE, pneumothroax, neoplasm, cardiac ischemia, COPD, asthma, CHF, pleural effusion, tobacco abuse, pneumonia, hypoxia, hypercapnia, anemia., infection/sepsis., pulmonary edema. Asthma, Cardiac tamponade, infection.) X-Ray, Labs, Meds, VS Vital Signs Date Time Temp Pulse Resp B/P (MAP) Pulse Ox O2 Delivery O2 Flow Rate FiO2 12/30/24 13:00 64 30 149/51 (83) 96 12/30/24 12:42 143/46 12/30/24 12:00 61 28 143/46 (78) 94 12/30/24 12:00 63 12/30/24 11:37 62 12/30/24 11:00 62 24 149/42 (77) 100 12/30/24 10:52 20 98 Nasal Cannula* 2 28 12/30/24 10:50 Nasal Cannula* 2 28 12/30/24 10:50 98.0 70 17 127/60 (82) 97 98.0 12/30/24 10:25 17 100 Simple Mask* 6 50 12/30/24 10:19 98.0 61 17 126/59 (81) 100 98.0 Lab Test 12/30/24 13:24 12/30/24 12:12 12/30/24 11:56 12/30/24 11:26 Range/Units Troponin I High Sensitivity 55 *H 58 *H </=34 ng/L Thyroid Stimulating Hormone (TSH) 2.49 0.55-4.78 uIU/mL Free Thyroxine (T4) Calculated Pending Urine Color Light-yellow Yellow Urine Clarity Clear Clear Urine pH 6.0 5.0-9.0 Urine Specific [place] 1.023 1.001-1.035 Urine Protein Trace H Negative Urine Ketones Negative Negative Urine Blood Negative Negative /uL Urine Nitrite Negative Negative Urine Bilirubin Negative Negative Urine Urobilinogen Normal Negative mg/dL Urine Leukocyte Esterase 2+ Negative /uL Urine RBC 22 0 - 4 /hpf Urine Microscopic WBC 29 H 0-5 /HPF Urine Squamous Epithelial Cells None seen <5 /hpf Urine Bacteria None seen None Seen /hpf Urine Glucose Normal Normal mg/dL Influenza Type A Antigen Negative Negative Influenza Type B Antigen Negative Negative SARS-CoV-2 Antigen (Rapid) Negative NEGATIVE Test 12/30/24 11:20 12/30/24 10:30 Range/Units Blood Gas Specimen Type Arterial Blood Gas Sample Site Left radial Blood Gas Patient Temperature 37.0 Arterial Blood Date Drawn [id number] Arterial Blood pH 7.493 H 7.350-7.450 Arterial Blood Partial Pressure CO2 29.9 L 32.0-45.0 mmHg Arterial Blood Partial Pressure O2 54.5 *L 83.0-108.0 mmHg Arterial Blood HCO3 22.4 21.0-28.0 mmol/L Arterial Blood Oxygen Saturation 88.8 L 94.0-98.0 % Arterial Blood Base Excess -0.4 -2.0-3.0 mmol/L Arterial Blood Oxyhemoglobin 88.1 L 94.0-98.0 % Arterial Blood Carboxyhemoglobin 0.4 L 0.5-1.5 % Arterial Blood Methemoglobin 0.4 0.0-1.5 % Jassi Test Yes Blood Gas Total Hemoglobin 9.10 L 12.0-16.0 g/dL Blood Gas Liter Flow 0.00 Blood Gas Modality Room air FiO2 % 21.0 Blood Gas Critical Value Read Back Yes Blood Gas Notified Whom anabel Sher Blood Gas Notified Time [id number] Blood Gas Notified By Charge Loader cyrus rivas White Blood Count 10.0 4.4-10.8 10^3/uL Red Blood Count 3.44 L 4.0-5.20 10^6/uL Hemoglobin 8.7 L 12.2-16.2 g/dL Hematocrit 28.4 L 36.0-46.0 % Mean Corpuscular Volume 82.6 80.0-100.0 fL Mean Corpuscular Hemoglobin 25.4 L 28.0-32.0 pg Mean Corpuscular Hemoglobin Concent 30.7 L 32.0-36.0 g/dL Red Cell Distribution Width 17.8 H 11.8-14.3 % Platelet Count 231 140-450 10^3/uL Mean Platelet Volume 8.6 6.9-10.8 fL Neutrophils (%) (Auto) 76.7 37.0-80.0 % Lymphocytes (%) (Auto) 13.9 10.0-50.0 % Monocytes (%) (Auto) 8.6 0.0-12.0 % Eosinophils (%) (Auto) 0.1 0.0-7.0 % Basophils (%) (Auto) 0.7 0.0-2.0 % Neutrophils # (Auto) 7.7 1.6-8.6 10 ^3/uL Lymphocytes # (Auto) 1.4 0.4-5.4 10 ^3/uL Monocytes # (Auto) 0.9 0-1.3 10 ^3/uL Eosinophils # (Auto) 0 0-0.8 10 ^3/uL Basophils # (Auto) 0.1 0-0.2 10 ^3/uL Nucleated Red Blood Cells 0.0 % Sodium Level 141 136-145 mmol/L Potassium Level 3.9 3.5-5.1 mmol/L Chloride Level 108 H 98-107 mmol/L Carbon Dioxide Level 26 20-31 mmol/L Anion Gap 7 5-15 Blood Urea Nitrogen 22 9-23 mg/dL Creatinine 0.88 0.550-1.02 mg/dL Glomerular Filtration Rate Calc 66 >90 mL/min BUN/Creatinine Ratio 25.0 H 10.0-20.0 Serum Glucose 132 H 74-106 mg/dL Lactic Acid Level 1.3 0.4-2.0 mmol/L Calcium Level 9.0 8.7-10.4 mg/dL Total Bilirubin 0.6 0.2-1.0 mg/dL Aspartate Amino Transferase (AST) 47 H 13-40 U/L Alanine Aminotransferase (ALT) 55 H 7-40 U/L Alkaline Phosphatase 95 46-116 U/L Troponin I High Sensitivity 61 *H </=34 ng/L B-Type Natriuretic Peptide 883.55 0-100 pg/mL Total Protein 6.3 5.7-8.2 g/dL Albumin 4.1 3.2-4.8 g/dL Current Medications Medications (Trade) Dose Ordered Sig/Ursula Route Start Time Stop Time Status Last Admin Albuterol (Ventolin Medneb) 2.5 mg ONCE ONCE NEB 12/30/24 10:45 12/30/24 10:46 DC 12/30/24 11:01 Ipratropium [place] (Atrovent Medneb) 1 mg ONCE ONCE NEB 12/30/24 10:45 12/30/24 10:46 DC 12/30/24 11:01 Methylprednisolone Sodium Succinate (Solu Medrol) 125 mg ONCE ONCE IV 12/30/24 10:45 12/30/24 10:46 DC 12/30/24 11:10 Furosemide (Lasix Injection) 40 mg ONCE ONCE IV 12/30/24 11:30 12/30/24 11:31 DC 12/30/24 12:42 Aspirin (Ecotrin Enteric Coated Tablet) 325 mg ONCE ONCE PO 12/30/24 12:00 12/30/24 12:01 DC 12/30/24 12:[address] [address] Ph: [phone] DIAGNOSTIC IMAGING Diagnostic Imaging Report : [id number] Signed PATIENT: LUIS RUBALCAVA ACCT: [id number] UNIT: [id number] : 1940 LOC: ER ROOM / BED: / AGE / SEX: 84 / F ADM STATUS: REG ER SERVICE 1012 ORDERING PHYSICIAN: KYLE LAND DO PROCEDURE(s): CXRP - CHEST PORTABLE REASON: sob ORDER NUMBER(s): [id number], ACCESSION NUMBER(s): [id number] EXAM: XR Chest, 1 View CLINICAL INDICATION: sob TECHNIQUE: Frontal view of the chest. COMPARISON: XY CHEST XRAY 1 VIEW on DOS: 06/13/24, XY CHEST PORTABLE on DOS: 01/25/24, XY CHEST PORTABLE on DOS: 01/16/24, XY CHEST PORTABLE on DOS: 04/15/23 FINDINGS: LUNGS AND PLEURAL SPACES: Pulmonary congestion and edema. Pneumonia cannot be excluded. Bilateral pleural effusions. No pneumothorax. HEART: Unremarkable. No cardiomegaly. MEDIASTINUM: Unremarkable. Normal mediastinal contour. BONES/JOINTS: Unremarkable. No acute fracture. OTHER FINDINGS: . . .. IMPRESSION: 1. Pulmonary congestion and edema. Pneumonia cannot be excluded. 2. Bilateral pleural effusions. ATED BY: KEIKO DIAL MD DICTATED DATE/TIME: 12/30/241149 SIGNED BY: KEIKO DIAL MD SIGNED DATE/TIME: 12/30/241149 CC: Time of 1ST Reevaluation: 10:10 Reevaluation 1ST: Unchanged Time of 2ND Reevaluation: 11:35 (Chest x-ray is still pending, BNP is still pending, troponin still pending) Reevaluation 2ND: Improved Patient Education/Counseling: Diagnosis, Treatment Family Education/Counseling: No Family Present Comments Patient presented with the above HPI.--dyspnea----workup was initiated. patient was found with the above mentioned diagnosis. the following medications were ordered: please refer to order lists of meds and tests obtained by myself Dr. Land. Patient ED course and VS have been stabilized. Patient has been reassessed in the ED and remained in a stable condition. Pertinent incidental findings were discussed with the patient and/or family. Patient/family voices understanding and is agreeable with plan. Patient has been observed in the ED adequate length of time to insure improvement/stability. Escalation of care considered: Consideration of escalation to observation or admission Chest x-ray suggests pleural effusion and possible pneumonia. Patient also has a UTI. Patient was given Lasix and Rocephin. Patient was ADMITTED to the medicine team for further evaluation and treatment of their presentation. All the reports of any imaging studies that were ordered by myself were reviewed by myself. Departure 1 Departure Time of Disposition: 11:34 Impression: Primary Impression: Hypoxemia Additional Impressions: Acute respiratory distress Anemia UTI (urinary tract infection) Pleural effusion Disposition: ADMITTED INPATIENT Admit to: Tele Condition: Guarded Discharged With: Self Critical Care Note Critical Care Time?: Yes (35 min-critical care time only) Heart Score Heart Score: Heart Score Response (Comments) Value History Highly Suspicious 2 EKG Normal 0 Age >65 2 Risk Factors >3 or Hx ASHD 2 Troponin 1-2 x's Normal limit 1 Total 7 I personally scribed for KYLE LAND DO ([email or web address]) on 12/30/24 at 10:19. Electronically submitted by Grant Espinosa ([email or web address]). I personally scribed for KYLE LAND DO ([email or web address]) on 12/30/24 at 10:36. Electronically submitted by Grant Espinosa ([email or web address]). I personally scribed for KYLE LAND DO ([email or web address]) on 12/30/24 at 11:28. Electronically submitted by Grant Espinosa ([email or web address]). I personally scribed for KYLE LAND DO ([email or web address]) on 12/30/24 at 13:18. Electronically submitted by Grant Espinosa ([email or web address]). KYLE LAND DO Dec 30, 2024 10:19
[2024-12-30] MEDS: ALBUTEROL SULF 2.5 MG/0.5ML(0.5%) NEB SOLN NEB ONE (11:01)
[2024-12-30] MEDS: IPRATROPIUM BROM 0.5 MG/2.5ML INH SOL NEB ONE (11:01)
[2024-12-30 11:07] LABS: Basophils # (auto) 0.1 10 ^3/uL (0-0.2); Basophils % (auto) 0.7 % (0.0-2.0); Eosinophils # (auto) 0 10 ^3/uL (0-0.8); Eosinophils % (auto) 0.1 % (0.0-7.0); Hematocrit 28.4 % (36.0-46.0); Hemoglobin 8.7 g/dL (12.2-16.2); Lymphocytes # (auto) 1.4 10 ^3/uL (0.4-5.4); Lymphocytes % (auto) 13.9 % (10.0-50.0); Mean Corpuscular Hemoglobin 25.4 pg (28.0-32.0); Mean Corpuscular Hgb Conc. 30.7 g/dL (32.0-36.0); Mean Corpuscular Volume 82.6 fL (80.0-100.0); Monocytes # (auto) 0.9 10 ^3/uL (0-1.3); Monocytes % (auto) 8.6 % (0.0-12.0); Neutrophils # (auto) 7.7 10 ^3/uL (1.6-8.6); Neutrophils % (auto) 76.7 % (37.0-80.0); Platelet Count (auto) 231 10^3/uL (140-450); Red Blood Cells 3.44 10^6/uL (4.0-5.20); Red Cell Distribution Width 17.8 % (11.8-14.3)
[2024-12-30] MEDS: methylPREDNISolone SOD SUCC 125 MG/2 ML VL IV ONE (11:10)
[2024-12-30 11:29] LABS: Base Excess -0.4 mmol/L (-2.0-3.0)
[2024-12-30 11:30] LABS: Albumin 4.1 g/dL (3.2-4.8); Alkaline Phosphatase 95 U/L (46-116); Anion Gap 7 (5-15); Bilirubin, Total 0.6 mg/dL (0.2-1.0); Blood Urea Nitrogen 22 mg/dL (9-23); Carbon Dioxide 26 mmol/L (20-31); Potassium 3.9 mmol/L (3.5-5.1); Sodium 141 mmol/L (136-145); Total Protein 6.3 g/dL (5.7-8.2)
[2024-12-30 11:31] LABS: Chloride 108 mmol/L (98-107); Glucose 132 mg/dL (74-106)
[2024-12-30 11:32] LABS: Alanine Aminotransferase 55 U/L (7-40); Aspartate Aminotransferase 47 U/L (13-40)
--- NOTE | 2024-12-30 11:52 | DVH ---
EXAM: XR Chest, 1 View CLINICAL INDICATION: sob TECHNIQUE: Frontal view of the chest. COMPARISON: XY CHEST XRAY 1 VIEW on DOS: 06/13/24, XY CHEST PORTABLE on DOS: 01/25/24, XY CHEST PORTAB LE on DOS: 01/16/24, XY CHEST PORTABLE on DOS: 04/15/23 FINDINGS: LUNGS AND PLEURAL SPACES: Pulmonary congestion and edema. Pneumonia cannot be excluded. Bilateral pleural effusions. No pneumothorax. HEART: Unremarkable. No cardiomegaly. MEDIASTINUM: Unremarkable. Normal mediastinal contour. BONES/JOINTS: Unremarkable. No acute fracture. OTHER FINDINGS: . . .. IMPRESSION: 1. Pulmonary congestion and edema. Pneumonia cannot be excluded. 2. Bilateral pleural effusions.
[2024-12-30 12:20] LABS: Urine Bacteria None Seen /hpf (None Seen)
[2024-12-30 12:38] LABS: Urine Blood Negative /uL (Negative); Urine Clarity Clear (Clear); Urine Color Light-Yellow (Yellow); Urine Protein, UAD TRACE (Negative); Urine Specific Gravity 1.023 (1.001-1.035); Urine Squamous Epithelial Cell None Seen /hpf (<5); Urine Urobilinogen Normal (Negative); Urine WBC 29 /HPF (0-5)
[2024-12-30] MEDS: FUROSEMIDE 40 MG/4 ML VIAL IV ONE (12:42)
[2024-12-30] MEDS: ASPirin-EC 325mg tab PO ONE (12:42)
[2024-12-30 12:51] LABS: Rapid Influenza A Negative (Negative); Rapid Influenza B Negative (Negative)
[2024-12-30 12:52] LABS: COVID19 ANTIGEN SOFIA FIA NEGATIVE (NEGATIVE)
[2024-12-30] MEDS ORDERED: DOCUSATE SOD 100 MG CAP PO PRN (14:30)
[2024-12-30] MEDS ORDERED: ONDANSETRON HCL 4 MG/2 ML VIAL IV PRN (14:30)
[2024-12-30] MEDS ORDERED: ACETAMINOPHEN 325 MG TAB PO PRN (14:30)
[2024-12-30] MEDS ORDERED: HYDROcodone-ACET 5/325MG TAB PO PRN (14:30)
--- NOTE | 2024-12-30 14:41 | DVHHP2 ---
Admitting Diagnosis: SOB History of Present Illness 84 y/o obese F is BIBA for c/o shortness of breath and wheezing, today. Onset of symptoms at 4:30 a.m. this morning when she woke up. She comes from home. Per EMS, pulse ox initially was 90% at room air. Patient does not use oxygen at home. Then reported not to have any lung disease. En route to ED, patient was given two breathing treatment, with improvement to SpO2 of 100%. Patient denies any chest pain, palpitations, cough, congestion, fever, chills, or other associated symptoms at this time. Per EMS patient is in 0 8 x 1 and is currently at baseline. 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 HEAD: Denies acute: headache, photophobia Eyes: Denies acute: Double vision, vision loss, eye pain, eye discharge. EARS: Denies acute: tinnitus, hearing loss, ear discharge, ear pain, THROAT: Denies acute: sore throat, swelling, difficulty swallowing , pain with swallowing, change in voice. NECK: Denies acute: neck pain, neck swelling, stiff neck. HEART: Denies acute : chest pain, palpitations, LUNGS: Denies acute: wheezing, cough, hemoptysis ABDOMEN: Denies acute: abdominal pain, Nausea, Vomiting, diarrhea, melena , hematemesis, hematochezia SKIN: Denies acute: rash, redness, lesions, itchiness. EXTREMITIES: Denies acute: calf pain, numbness, tingling, weakness, denies pain in extremity. Denies acute: Low back pain. Neuro: Denies acute: focal neurological deficit, motor or sensory focal neurological deficit, tremors, seizure like activity, confusion, dizziness, change in mental status, loss of bowel or bladder function, cauda equina like symptoms. : Denies acute: dysuria, hematuria, flank pain, increase in urinary frequency. PSYCH: Denies acute: hallucination, suicidal ideation, homicidal ideation. FEMALE: Denies acute: abnormal vaginal bleeding, foul odor, unusual discharge. Patient Family History: FH: uterine cancer G8 MOTHER Allergies: Coded Allergies: Codeine (Verified Allergy, Unknown, 01/28/17) Erythromycin (Verified Allergy, Unknown, 01/28/17) Home Meds Reported Medications Cyanocobalamin (Vitamin B-12) 1,000 Mcg Tab, 1000 MCG PO DAILY 06/14/24 Potassium Chloride (Potassium Chloride ER) 20 Meq Tab, 20 MEQ PO DAILY 06/14/24 Levothyroxine Sodium (Levothyroxine Sodium) 25 Mcg Tab, 1 TAB PO ONCE DAILY TAKE ONE TABLET BY MOUTH ONCE DAILY 1 HOUR BEFORE BREAKFAST FOR HYPOTHYROID 06/14/24 Amiodarone Hcl (Amiodarone Hcl) 200 Mg Tab, 200 MG PO ONCE DAILY FOR IRREGULAR HEARTBEATS RELATED TO ATRIAL FIBRILLATION 06/14/24 Memantine Hydrochloride (Memantine HCl) 10 Mg Tab, 10 MG PO DAILY, TAB 04/16/23 Sacubitril-Valsartan (Entresto 24-26 mg) 1 Tab Tab, 1 TAB PO BID 04/16/23 Metoprolol Tartrate (Metoprolol Tartrate) 25 Mg Tab, 25 MG PO BID, TAB 04/16/23 Atorvastatin Calcium (ATORVASTATIN CALCIUM) 40 Mg Tab, 1 TAB PO DAILY 04/16/23 Furosemide (Lasix) 40 Mg Tab, 1 TAB PO DAILY 04/16/23 Amlodipine Besylate (Amlodipine Besylate) 5 Mg Tab, 1 TAB PO DAILY 04/16/23 Apixaban Base (ELIQUIS) 2.5 Mg Tab, 1 TAB PO BID 04/16/23 Pantoprazole Sodium Sesquihydr (Pantoprazole Sodium) 40 Mg Tab, 1 TAB PO DAILY 04/16/23 Vital Signs Vital Signs Date Time Temp Pulse Resp B/P (MAP) Pulse Ox O2 Delivery O2 Flow Rate FiO2 12/30/24 12:42 143/46 12/30/24 12:00 63 12/30/24 10:52 20 98 Nasal Cannula* 2 28 12/30/24 10:19 98.0 98.0 Physical Exam Generally-85 years old woman, resting comfortably in bed. No apparent distress HEENT-atraumatic, normocephalic Heart-regular rate and rhythm Lungs decreased breath sounds bilateral lower lung leos Abdomen soft nontender nondistended Musculoskeletal-pedal edema, no cyanosis Neuro-awake, alert, answer questions follow commands, strength intact sensation intact Results Labs Test 12/30/24 13:24 12/30/24 12:12 12/30/24 11:56 12/30/24 11:20 Range/Units Troponin I High Sensitivity 55 *H </=34 ng/L Urine Color Light-yellow Yellow Urine Clarity Clear Clear Urine pH 6.0 5.0-9.0 Urine Specific [place] 1.023 1.001-1.035 Urine Protein Trace H Negative Urine Ketones Negative Negative Urine Blood Negative Negative /uL Urine Nitrite Negative Negative Urine Bilirubin Negative Negative Urine Urobilinogen Normal Negative mg/dL Urine Leukocyte Esterase 2+ Negative /uL Urine RBC 22 0 - 4 /hpf Urine Microscopic WBC 29 H 0-5 /HPF Urine Squamous Epithelial Cells None seen <5 /hpf Urine Bacteria None seen None Seen /hpf Urine Glucose Normal Normal mg/dL Influenza Type A Antigen Negative Negative Influenza Type B Antigen Negative Negative SARS-CoV-2 Antigen (Rapid) Negative NEGATIVE Blood Gas Specimen Type Arterial Blood Gas Sample Site Left radial Blood Gas Patient Temperature 37.0 Arterial Blood Date Drawn [id number] Arterial Blood pH 7.493 H 7.350-7.450 Arterial Blood Partial Pressure CO2 29.9 L 32.0-45.0 mmHg Arterial Blood Partial Pressure O2 54.5 *L 83.0-108.0 mmHg Arterial Blood HCO3 22.4 21.0-28.0 mmol/L Arterial Blood Oxygen Saturation 88.8 L 94.0-98.0 % Arterial Blood Base Excess -0.4 -2.0-3.0 mmol/L Arterial Blood Oxyhemoglobin 88.1 L 94.0-98.0 % Arterial Blood Carboxyhemoglobin 0.4 L 0.5-1.5 % Arterial Blood Methemoglobin 0.4 0.0-1.5 % Jassi Test Yes Blood Gas Total Hemoglobin 9.10 L 12.0-16.0 g/dL Blood Gas Liter Flow 0.00 Blood Gas Modality Room air FiO2 % 21.0 Blood Gas Critical Value Read Back Yes Blood Gas Notified Whom anabel Sher Blood Gas Notified Time [id number] Blood Gas Notified By Vice President For Philanthropy cyrus rivas Test 12/30/24 10:30 Range/Units White Blood Count 10.0 4.4-10.8 10^3/uL Red Blood Count 3.44 L 4.0-5.20 10^6/uL Hemoglobin 8.7 L 12.2-16.2 g/dL Hematocrit 28.4 L 36.0-46.0 % Mean Corpuscular Volume 82.6 80.0-100.0 fL Mean Corpuscular Hemoglobin 25.4 L 28.0-32.0 pg Mean Corpuscular Hemoglobin Concent 30.7 L 32.0-36.0 g/dL Red Cell Distribution Width 17.8 H 11.8-14.3 % Platelet Count 231 140-450 10^3/uL Mean Platelet Volume 8.6 6.9-10.8 fL Neutrophils (%) (Auto) 76.7 37.0-80.0 % Lymphocytes (%) (Auto) 13.9 10.0-50.0 % Monocytes (%) (Auto) 8.6 0.0-12.0 % Eosinophils (%) (Auto) 0.1 0.0-7.0 % Basophils (%) (Auto) 0.7 0.0-2.0 % Neutrophils # (Auto) 7.7 1.6-8.6 10 ^3/uL Lymphocytes # (Auto) 1.4 0.4-5.4 10 ^3/uL Monocytes # (Auto) 0.9 0-1.3 10 ^3/uL Eosinophils # (Auto) 0 0-0.8 10 ^3/uL Basophils # (Auto) 0.1 0-0.2 10 ^3/uL Nucleated Red Blood Cells 0.0 % Sodium Level 141 136-145 mmol/L Potassium Level 3.9 3.5-5.1 mmol/L Chloride Level 108 H 98-107 mmol/L Carbon Dioxide Level 26 20-31 mmol/L Anion Gap 7 5-15 Blood Urea Nitrogen 22 9-23 mg/dL Creatinine 0.88 0.550-1.02 mg/dL Glomerular Filtration Rate Calc 66 >90 mL/min BUN/Creatinine Ratio 25.0 H 10.0-20.0 Serum Glucose 132 H 74-106 mg/dL Lactic Acid Level 1.3 0.4-2.0 mmol/L Calcium Level 9.0 8.7-10.4 mg/dL Total Bilirubin 0.6 0.2-1.0 mg/dL Aspartate Amino Transferase (AST) 47 H 13-40 U/L Alanine Aminotransferase (ALT) 55 H 7-40 U/L Alkaline Phosphatase 95 46-116 U/L B-Type Natriuretic Peptide 883.55 0-100 pg/mL Total Protein 6.3 5.7-8.2 g/dL Albumin 4.1 3.2-4.8 g/dL Primary Diagnosis Acute hypoxic respiratory failure likely due to CHF exacerbation Urinary tract infection Elevated troponin rule out ACS Plan Elevated BNP, elevated troponin, UA positive for UTI Start ceftriaxone 1 g daily. Follow up with the urine culture adjust antibiotic according to the ID and sensitivity IV Lasix 40 mg b.i.d. Daily weights Strict in and out Fluid restriction Optimize potassium greater than four, magnesium greater than two Check echo of the heart to rule out ACS Trend troponin until plateau Cardiology consult for elevated troponin likely due to CHF exacerbation Resume home meds Oxygen sat goal > 92% Cardiac diet Eliquis for DVT prophylaxis Full code No GI prophylaxis needed Plan discussed with: Patient Problems List: (1) Acute respiratory distress Status: Acute (2) CHF (congestive heart failure) Status: Acute Date of Service: Dec 30, 2024 Billing Provider: SON BROOKS MD Common Visit Codes: [id number] INP/OBS CARE (HIGH) SON BROOKS MD Dec 30, 2024 14:41
[2024-12-30 20:00] VITALS: PULSE 82; RESP 21; O2SAT 98
[2024-12-30] MEDS: FUROSEMIDE 40 MG/4 ML VIAL IV SCH (20:27)
[2024-12-30 22:21] VITALS: PULSE 72; RESP 18; O2SAT 98
[2024-12-30] MEDS: SODIUM CHLOR 0.9% PF (SALINE LOCK) 10ML VIAL/SYR IV SCH (22:55)
[2024-12-30] MEDS: ATORVASTATIN 20 MG TAB PO SCH (22:55)
[2024-12-30] MEDS: APIXABAN 2.5 MG TAB PO SCH (22:55)
[2024-12-30] MEDS: SACUBITRIL-VALSARTAN 24mg/26mg TAB PO SCH (22:55)
[2024-12-30] MEDS: METOPROLOL TARTRATE 25 MG TAB PO SCH (22:56)
--- NOTE | 2024-12-30 23:46 | ECG ---
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
[2024-12-31] VITALS (7 sets, daily range): BP systolic 104–138; BP diastolic 40–79; PULSE 57–73; RESP 19–20; TEMP 97.5–98.1; O2SAT 91–96
[2024-12-31] MEDS ORDERED: HALOPERIDOL LACTATE 5 MG/ML INJ VIAL IM ONE (05:00)
[2024-12-31] MEDS: PANTOPRAZOLE 40 MG TAB PO SCH (06:19)
[2024-12-31] MEDS: LEVOTHYROXINE SODIUM 25 MCG TAB PO SCH (06:19)
--- NOTE | 2024-12-31 08:42 | DVHSR ---
APPROVED REPORT EXAM: Two-dimensional and M-mode echocardiogram with Doppler and color Doppler. Blood Pressure: 143/46 mmHg INDICATION Acute CHF exacerbation Surgery/Intervention Valve Replacement: Type: AV RISK FACTORS Height: 5'2", Weight: 169 DIMENSIONS LVDd4.1 (3.8-5.7cm)LA (2D)3.8 (1.9-4.0cm)Aortic Root (2.0-3.7cm) LVDs2.9 (2.5-4.0cm)LA (MM) (1.9-4.0cm)Aortic Cusp Exc (1.5-2.0cm) EF (%) 60.0 (55-70%)Rt. Atrium3.4 (1.9-4.0cm)Asc. Aorta cm IVSd1.0 (0.7-1.1cm)RV (D) (1.8-2.4cm) PWd0.9 (0.7-1.1cm) Mitral Valve MitralMitral Stenosis E wave1.55m/sMV Mean GR.4mmHg A wave1.28m/sMV Peak GR.10mmHg E/A ratio1.22D MVAcm2 DECEL [id number] 1/2 Timems Aortic Valve Aortic ValveAortic Stenosis V11.48m/Stefanie Mean GR.17mmHg V22.90m/Stefanie Peak GR.34mmHg LVOT Diameter1.7 (1.8-2.4cm)Doppler AVA1.16cm2 Tricuspid Valve TR Velocity3.41m/s [id number] Other Information Technically limited study due to body habitus, patient sitting up. Conclusion lvef 60% by visual estimate moderate to severe LVH asymetric septal hypertrophy moderate < mean gradient of 17 mmhg, av vmax 2.9 m/s normal rv function normal atria
[2024-12-31 09:25] LABS: Basophils # (auto) 0 10 ^3/uL (0-0.2); Basophils % (auto) 0.1 % (0.0-2.0); Eosinophils # (auto) 0 10 ^3/uL (0-0.8); Hematocrit 29.3 % (36.0-46.0); Hemoglobin 9.2 g/dL (12.2-16.2); Lymphocytes # (auto) 1.4 10 ^3/uL (0.4-5.4); Mean Corpuscular Hemoglobin 25.6 pg (28.0-32.0); Mean Corpuscular Hgb Conc. 31.4 g/dL (32.0-36.0); Mean Corpuscular Volume 81.5 fL (80.0-100.0); Monocytes # (auto) 1.4 10 ^3/uL (0-1.3); Monocytes % (auto) 8.3 % (0.0-12.0); Neutrophils # (auto) 14.1 10 ^3/uL (1.6-8.6); Neutrophils % (auto) 83.6 % (37.0-80.0); Platelet Count (auto) 289 10^3/uL (140-450); White Blood Cell 16.9 10^3/uL (4.4-10.8)
[2024-12-31 09:45] LABS: Alanine Aminotransferase 51 U/L (7-40); Albumin 4.5 g/dL (3.2-4.8); Alkaline Phosphatase 97 U/L (46-116); Anion Gap 12 (5-15); BUN/Creatinine Ratio 20.7 (10.0-20.0); Blood Urea Nitrogen 23 mg/dL (9-23); Calcium 9.9 mg/dL (8.7-10.4); Carbon Dioxide 27 mmol/L (20-31); Chloride 104 mmol/L (98-107); Glucose 122 mg/dL (74-106); Magnesium 2.1 mg/dL (1.6-2.6); Potassium 3.1 mmol/L (3.5-5.1); Sodium 143 mmol/L (136-145); Total Protein 7.2 g/dL (5.7-8.2)
[2024-12-31 09:46] LABS: Aspartate Aminotransferase 42 U/L (13-40); Bilirubin, Total 0.6 mg/dL (0.2-1.0)
[2024-12-31] MEDS: AMIODARONE HCL 200 MG TAB PO SCH (10:38)
[2024-12-31] MEDS: CYANOCOBALAMIN 500 MCG TAB PO SCH (10:38)
[2024-12-31] MEDS: MEMANTINE HCL 5 MG TAB PO SCH (10:38)
[2024-12-31] MEDS: amLODIPine BESYLATE 5 MG TAB PO SCH (10:39)
[2024-12-31] MEDS: cefTRIAXone 1GM/50ML D5W 50 ML IV SCH (10:40)
[2024-12-31] MEDS: ENOXAPARIN SOD 40 MG/0.4 ML SYRINGE SC SCH (10:40)
--- NOTE | 2024-12-31 12:05 | DVHINCON2 ---
[facility] 12/31/24 1205: Date Seen: Dec 31, 2024 Referring Physician MD Rafi Reason for Consultation Acute CHF exacerbation History of Present Illness This is a pleasant 84-year-old female who presented to the emergency room via EMS with a chief complaint of shortness of breath for one week. Information mostly obtained from daughter at bedside. The patient complains of progressive shortness of breath associated with MAC, BLE edema, and wheezing. She was provided a breathing treatment EN route to the hospital. She underwent a 12 lead electrocardiogram revealing a sinus rhythm with an associated left bundle branch block. Follows up in the outpatient setting with primary rack production worker Dr. Dodd. Significant medical history includes severe coronary artery disease status post single-vessel CABG at [facility] on 2020, status post aortic valve replacement (bioprosthetic 2022), paroxysmal atrial fibrillation on amiodarone/Eliquis therapy, history of cerebrovascular accidents with Broca's aphasia, hypertension, dyslipidemia, hypothyroidism, dementia, and obesity. Past Medical History Past medical history reviewed. No other significant than mentioned above. Past Surgical History Single-vessel CABG, 2020 Aortic valve replacement with open heart (bioprosthetic), 2020 Both wrists C-sections x3 Family History: FH: uterine cancer G8 MOTHER Family History Family history reviewed. Social History Denies the use of illicit drugs, alcohol, or tobacco use. Allergies: Coded Allergies: Codeine (Verified Allergy, Unknown, 01/28/17) Erythromycin (Verified Allergy, Unknown, 01/28/17) Home Meds Reported Medications Cyanocobalamin (Vitamin B-12) 1,000 Mcg Tab, 1000 MCG PO DAILY 06/14/24 Potassium Chloride (Potassium Chloride ER) 20 Meq Tab, 20 MEQ PO DAILY 06/14/24 Levothyroxine Sodium (Levothyroxine Sodium) 25 Mcg Tab, 1 TAB PO ONCE DAILY TAKE ONE TABLET BY MOUTH ONCE DAILY 1 HOUR BEFORE BREAKFAST FOR HYPOTHYROID 06/14/24 Amiodarone Hcl (Amiodarone Hcl) 200 Mg Tab, 200 MG PO ONCE DAILY FOR IRREGULAR HEARTBEATS RELATED TO ATRIAL FIBRILLATION 06/14/24 Memantine Hydrochloride (Memantine HCl) 10 Mg Tab, 10 MG PO DAILY, TAB 04/16/23 Sacubitril-Valsartan (Entresto 24-26 mg) 1 Tab Tab, 1 TAB PO BID 04/16/23 Metoprolol Tartrate (Metoprolol Tartrate) 25 Mg Tab, 25 MG PO BID, TAB 04/16/23 Atorvastatin Calcium (ATORVASTATIN CALCIUM) 40 Mg Tab, 1 TAB PO DAILY 04/16/23 Furosemide (Lasix) 40 Mg Tab, 1 TAB PO DAILY 04/16/23 Amlodipine Besylate (Amlodipine Besylate) 5 Mg Tab, 1 TAB PO DAILY 04/16/23 Apixaban Base (ELIQUIS) 2.5 Mg Tab, 1 TAB PO BID 04/16/23 Pantoprazole Sodium Sesquihydr (Pantoprazole Sodium) 40 Mg Tab, 1 TAB PO DAILY 04/16/23 Home Meds Home medications reviewed. Current Medications Current Medications Medications (Trade) Dose Ordered Sig/Ursula Route PRN Reason Start Time Stop Time Status Last Admin Furosemide (Lasix Injection) 40 mg BIDD IV 12/30/24 18:00 12/31/24 06:19 Sodium Chloride (Saline Lock Ns) 10 ml Q8HR IV 12/30/24 22:00 12/31/24 06:20 Docusate Sodium (Colace Capsule) 100 mg BIDPRN PRN PO FOR CONSTIPATION 12/30/24 14:30 Acetaminophen (Tylenol Tablet) 650 mg Q6HP PRN PO PAIN SCALE 1-3 OR TEMP>100.4 12/30/24 14:30 Acetaminophen/ Hydrocodone Bitart ([place] 5/325MG Tab) 1 tab Q4HP PRN PO MODERATE PAIN (4-6 PAIN SCALE) 12/30/24 14:30 Ondansetron HCl (Zofran) 4 mg Q4HP PRN IV NAUSEA / VOMITING 12/30/24 14:30 Enoxaparin Sodium (Lovenox) 40 mg DAILY SC 12/31/24 10:00 12/31/24 10:40 Amiodarone HCl (Cordarone Tablet) 200 mg DAILY PO 12/31/24 10:00 12/31/24 10:38 Amlodipine Besylate (Norvasc Tablet) 5 mg DAILY PO 12/31/24 10:00 12/31/24 10:39 Apixaban (Eliquis) 2.5 mg BID PO 12/30/24 22:00 12/31/24 10:39 Levothyroxine Sodium (Synthroid Tablet) 25 mcg DAILY@0600 PO 12/31/24 06:00 12/31/24 06:19 Metoprolol Tartrate (Lopressor Tablet) 25 mg BID PO 12/30/24 22:00 12/31/24 10:39 Pantoprazole Sodium (Protonix Tablet) 40 mg DAILY@0700 PO 12/31/24 07:00 12/31/24 06:19 Sacubitril/ Valsartan (Entresto 24-26 Mg tab) 1 tab BID PO 12/30/24 22:00 12/31/24 10:37 Atorvastatin Calcium (Lipitor) 40 mg HS PO 12/30/24 22:00 12/30/24 22:55 Cyanocobalamin (Vitamin B-12) 1,000 mcg DAILY PO 12/31/24 10:00 12/31/24 10:38 Memantine (Namenda Tablet) 10 mg DAILY PO 12/31/24 10:00 12/31/24 10:38 Ceftriaxone Sodium 50 ml @ 100 mls/hr DAILY@09 IV 12/31/24 09:00 12/31/24 10:40 Review of Systems Constitutional: No symptom reported Ears, Nose, & Throat: No symptom reported Eyes: No symptom reported Neurological: No symptoms reported Pulmonary/Respiratory: SOB, MAC, wheezing Cardiovascular: BLE edema Gastrointestinal: No symptom reported Genitourinary: No symptom reported Musculoskeletal: No symptom reported Skin: No symptom reported Psychiatric: No symptom reported Endocrine: No symptom reported Hemotologic/Lymphatic: No symptom reported Vital Signs Vital Signs Date Time Temp Pulse Resp B/P (MAP) Pulse Ox O2 Delivery O2 Flow Rate FiO2 12/31/24 10:39 73 125/55 12/31/24 08:46 98.1 19 96 98.1 12/30/24 22:21 Nasal Cannula* 2 28 Physical Exam General Appearance: Cooperative. Well developed. Obese. In no acute distress Head Exam: Normal inspection Neck Exam: Normal inspection. Non-tender. Normal alignment Pulmonary/Respiratory: Chest non-tender. Crackles to bilateral breath sounds Cardiovascular/Chest: Regular rate and rhythm. S1, S2. No murmurs. No JVD. Peripheral Pulses: 2+ Radial (R). 2+ Radial (L). 2+ Pedal (R). 2+ Pedal (L) Abdominal Exam: Normal bowel sounds. Soft. Nontender. No hepatospenomegaly. No masses Ankle Exam: Positive nonpitting ankle edema Lower extremities: Positive nonpitting lower extremity edema Neuro/Mental Status: A&O x2. Coherent but poor historian Thoughts/Psych: Normal thought pattern. Appropriate mood and affect. Pleasant Appearance: In no acute distress Skin Exam: Normal inspection. Normal color. Warm. Dry Labs/Diagnostic Data Labs Test 12/31/24 09:02 12/30/24 13:24 12/30/24 12:12 12/30/24 11:56 Range/Units White Blood Count 16.9 #H 4.4-10.8 10^3/uL Red Blood Count 3.60 L 4.0-5.20 10^6/uL Hemoglobin 9.2 L 12.2-16.2 g/dL Hematocrit 29.3 L 36.0-46.0 % Mean Corpuscular Volume 81.5 80.0-100.0 fL Mean Corpuscular Hemoglobin 25.6 L 28.0-32.0 pg Mean Corpuscular Hemoglobin Concent 31.4 L 32.0-36.0 g/dL Red Cell Distribution Width 18.0 H 11.8-14.3 % Platelet Count 289 140-450 10^3/uL Mean Platelet Volume 8.3 6.9-10.8 fL Neutrophils (%) (Auto) 83.6 H 37.0-80.0 % Lymphocytes (%) (Auto) 8.0 L 10.0-50.0 % Monocytes (%) (Auto) 8.3 0.0-12.0 % Eosinophils (%) (Auto) 0.0 0.0-7.0 % Basophils (%) (Auto) 0.1 0.0-2.0 % Neutrophils # (Auto) 14.1 H 1.6-8.6 10 ^3/uL Lymphocytes # (Auto) 1.4 0.4-5.4 10 ^3/uL Monocytes # (Auto) 1.4 H 0-1.3 10 ^3/uL Eosinophils # (Auto) 0 0-0.8 10 ^3/uL Basophils # (Auto) 0 0-0.2 10 ^3/uL Nucleated Red Blood Cells 0.0 % Sodium Level 143 136-145 mmol/L Potassium Level 3.1 L 3.5-5.1 mmol/L Chloride Level 104 98-107 mmol/L Carbon Dioxide Level 27 20-31 mmol/L Anion Gap 12 5-15 Blood Urea Nitrogen 23 9-23 mg/dL Creatinine 1.11 H 0.550-1.02 mg/dL Glomerular Filtration Rate Calc 50 >90 mL/min BUN/Creatinine Ratio 20.7 H 10.0-20.0 Serum Glucose 122 H 74-106 mg/dL Calcium Level 9.9 8.7-10.4 mg/dL Magnesium Level 2.1 1.6-2.6 mg/dL Total Bilirubin 0.6 0.2-1.0 mg/dL Aspartate Amino Transferase (AST) 42 H 13-40 U/L Alanine Aminotransferase (ALT) 51 H 7-40 U/L Alkaline Phosphatase 97 46-116 U/L Total Protein 7.2 5.7-8.2 g/dL Albumin 4.5 3.2-4.8 g/dL Troponin I High Sensitivity 55 *H </=34 ng/L Thyroid Stimulating Hormone (TSH) 2.49 0.55-4.78 uIU/mL Urine Color Light-yellow Yellow Urine Clarity Clear Clear Urine pH 6.0 5.0-9.0 Urine Specific [place] 1.023 1.001-1.035 Urine Protein Trace H Negative Urine Ketones Negative Negative Urine Blood Negative Negative /uL Urine Nitrite Negative Negative Urine Bilirubin Negative Negative Urine Urobilinogen Normal Negative mg/dL Urine Leukocyte Esterase 2+ Negative /uL Urine RBC 22 0 - 4 /hpf Urine Microscopic WBC 29 H 0-5 /HPF Urine Squamous Epithelial Cells None seen <5 /hpf Urine Bacteria None seen None Seen /hpf Urine Glucose Normal Normal mg/dL Influenza Type A Antigen Negative Negative Influenza Type B Antigen Negative Negative SARS-CoV-2 Antigen (Rapid) Negative NEGATIVE Test 12/30/24 11:20 12/30/24 10:30 Range/Units Blood Gas Specimen Type Arterial Blood Gas Sample Site Left radial Blood Gas Patient Temperature 37.0 Arterial Blood Date Drawn [id number] Arterial Blood pH 7.493 H 7.350-7.450 Arterial Blood Partial Pressure CO2 29.9 L 32.0-45.0 mmHg Arterial Blood Partial Pressure O2 54.5 *L 83.0-108.0 mmHg Arterial Blood HCO3 22.4 21.0-28.0 mmol/L Arterial Blood Oxygen Saturation 88.8 L 94.0-98.0 % Arterial Blood Base Excess -0.4 -2.0-3.0 mmol/L Arterial Blood Oxyhemoglobin 88.1 L 94.0-98.0 % Arterial Blood Carboxyhemoglobin 0.4 L 0.5-1.5 % Arterial Blood Methemoglobin 0.4 0.0-1.5 % Jassi Test Yes Blood Gas Total Hemoglobin 9.10 L 12.0-16.0 g/dL Blood Gas Liter Flow 0.00 Blood Gas Modality Room air FiO2 % 21.0 Blood Gas Critical Value Read Back Yes Blood Gas Notified Whom anabel Sher Blood Gas Notified Time [id number] Blood Gas Notified By Community Services Officer cyrus rivas Lactic Acid Level 1.3 0.4-2.0 mmol/L B-Type Natriuretic Peptide 883.55 0-100 pg/mL Microbiology Date/Time Source Procedure Growth Status 12/30/24 10:30 Blood Blood Culture - Preliminary NO GROWTH AFTER 24 HOURS OF INCUBATION. Resulted Assessment Acute on chronic decompensated HFpEF, NYHA Class III Paroxysmal atrial fibrillation, on amiodarone/low-dose Eliquis Status post aortic valve replacement (bioprosthetic) Hx CVA with Broca's aphasia Anemia, likely of chronic disease Hypertension Dyslipidemia Thyroid disease Dementia Obesity Plan/Recommendation We will continue the following plan/recommendations (Dr. Bernard): * Echocardiogram revealed EF 60% * Moderate to severe LVH. Moderate * Preload and afterload reduction as tolerated * Antiarrhythmic therapy, amiodarone * NOAC therapy, low-dose Eliquis * Single-antiplatelet therapy & lipid-lowering agent * Replete electrolytes as necessary Maximize medical therapy. Follow-up with Dr. Lipscomb as scheduled in the outpatient setting. Kindly call if in need to re-consult. Thank you for allowing us to participate in this patient's care. This medical document was created using an electronic medical record system with voice recognition software and computerized dictation system. Although this document has been carefully reviewed, there might still be some phonetic and typographical errors. Occasional wrong-word or ``sound-alike substitutions may have occurred due to the inherent limitations of voice recognition software. These areas are purely typographical due to imperfections of the software programs and do not reflect any compromise in the patient's medical care. Please read the chart carefully and recognize, using context, where these substitutions have occurred. Plan discussed with: Patient, Daughter, Other NYHA Physical activity limitations: Class3(Marked) ordinary (activity causes symtoms) Date of Service: Dec 31, 2024 Billing Provider: [facility] Cardiology Common Codes: [id number] INP/OBS CARE (High) NETTIE BERNARD MD 12/31/24 1558: Family History: FH: uterine cancer G8 MOTHER Allergies: Coded Allergies: Codeine (Verified Allergy, Unknown, 01/28/17) Erythromycin (Verified Allergy, Unknown, 01/28/17) Home Meds Reported Medications Cyanocobalamin (Vitamin B-12) 1,000 Mcg Tab, 1000 MCG PO DAILY 06/14/24 Potassium Chloride (Potassium Chloride ER) 20 Meq Tab, 20 MEQ PO DAILY 06/14/24 Levothyroxine Sodium (Levothyroxine Sodium) 25 Mcg Tab, 1 TAB PO ONCE DAILY TAKE ONE TABLET BY MOUTH ONCE DAILY 1 HOUR BEFORE BREAKFAST FOR HYPOTHYROID 06/14/24 Amiodarone Hcl (Amiodarone Hcl) 200 Mg Tab, 200 MG PO ONCE DAILY FOR IRREGULAR HEARTBEATS RELATED TO ATRIAL FIBRILLATION 06/14/24 Memantine Hydrochloride (Memantine HCl) 10 Mg Tab, 10 MG PO DAILY, TAB 04/16/23 Sacubitril-Valsartan (Entresto 24-26 mg) 1 Tab Tab, 1 TAB PO BID 04/16/23 Metoprolol Tartrate (Metoprolol Tartrate) 25 Mg Tab, 25 MG PO BID, TAB 04/16/23 Atorvastatin Calcium (ATORVASTATIN CALCIUM) 40 Mg Tab, 1 TAB PO DAILY 04/16/23 Furosemide (Lasix) 40 Mg Tab, 1 TAB PO DAILY 04/16/23 Amlodipine Besylate (Amlodipine Besylate) 5 Mg Tab, 1 TAB PO DAILY 04/16/23 Apixaban Base (ELIQUIS) 2.5 Mg Tab, 1 TAB PO BID 04/16/23 Pantoprazole Sodium Sesquihydr (Pantoprazole Sodium) 40 Mg Tab, 1 TAB PO DAILY 04/16/23 Plan/Recommendation pt seen today with sitter, no family pt confused, dementia cont HF meds fu with her cards after dc ED[facility]ERO Dec 31, 2024 12:05 NETTIE BERNARD MD Dec 31, 2024 15:58
--- NOTE | 2024-12-31 13:25 | DVHPN2 ---
Subjective Patient was denies any symptoms. Reviewed: Care Plan, H&P, Labs, Medications Changes from previous H/P or p: No Changes General: Per HPI Objective Vitals Vital Signs Date Time Temp Pulse Resp B/P (MAP) Pulse Ox O2 Delivery O2 Flow Rate FiO2 12/31/24 10:39 73 125/55 12/31/24 08:46 98.1 19 96 98.1 12/31/24 08:00 Nasal Cannula* 2 28 Intake/Output Intake and Output 12/31/24 07:00 Intake Total 0 ml Output Total 1900 ml Balance -1900 ml Intake Oral 0 ml Output Urine Total 1900 ml General Appearance: Alert, Oriented X3, Cooperative, No acute distress HEENT: Atraumatic, PERRLA Lungs: Clear to auscultation, Normal air movement Cardiovascular: Normal S1, Normal S2 Abdomen: Normal bowel sounds, Soft, No tenderness, No hepatospenomegaly Musculoskeletal: Normal sensory function, Normal motor function Neuro: Normal gait, Normal speech Skin: Dry, Intact Psych/Mental Status: Mental status NL, Mood NL Medications Current Medications Medications Dose Ordered Sig/Ursula Route Start Time Stop Time Status Last Admin Dose Admin Furosemide 40 mg BIDD IV 12/30/24 18:00 12/31/24 06:19 40 MG Sodium Chloride 10 ml Q8HR IV 12/30/24 22:00 12/31/24 06:20 10 ML Docusate Sodium 100 mg BIDPRN PRN PO 12/30/24 14:30 Acetaminophen 650 mg Q6HP PRN PO 12/30/24 14:30 Acetaminophen/ Hydrocodone Bitart 1 tab Q4HP PRN PO 12/30/24 14:30 Ondansetron HCl 4 mg Q4HP PRN IV 12/30/24 14:30 Amiodarone HCl 200 mg DAILY PO 12/31/24 10:00 12/31/24 10:38 200 MG Apixaban 2.5 mg BID PO 12/30/24 22:00 12/31/24 10:39 2.5 MG Levothyroxine Sodium 25 mcg DAILY@0600 PO 12/31/24 06:00 12/31/24 06:19 25 MCG Metoprolol Tartrate 25 mg BID PO 12/30/24 22:00 12/31/24 10:39 25 MG Pantoprazole Sodium 40 mg DAILY@0700 PO 12/31/24 07:00 12/31/24 06:19 40 MG Sacubitril/ Valsartan 1 tab BID PO 12/30/24 22:00 12/31/24 10:37 1 TAB Atorvastatin Calcium 40 mg HS PO 12/30/24 22:00 12/30/24 22:55 40 MG Cyanocobalamin 1,000 mcg DAILY PO 12/31/24 10:00 12/31/24 10:38 1,000 MCG Memantine 10 mg DAILY PO 12/31/24 10:00 12/31/24 10:38 10 MG Ceftriaxone Sodium 50 ml @ 100 mls/hr DAILY@09 IV 12/31/24 09:00 12/31/24 10:40 100 MLS/HR Aspirin 81 mg DAILY PO 01/01/25 10:00 Laboratory Results Laboratory Tests 12/31/24 09:02 Chemistry Test 12/31/24 09:02 Albumin 4.5 g/dL (3.2-4.8) Calcium Level 9.9 mg/dL (8.7-10.4) Magnesium Level 2.1 mg/dL (1.6-2.6) Total Protein 7.2 g/dL (5.7-8.2) LFT Test 12/31/24 09:02 Alanine Aminotransferase (ALT) 51 U/L (7-40) H Alkaline Phosphatase 97 U/L (46-116) Aspartate Amino Transferase (AST) 42 U/L (13-40) H Total Bilirubin 0.6 mg/dL (0.2-1.0) HgA1c, TSH Test 12/30/24 13:24 Thyroid Stimulating Hormone (TSH) 2.49 uIU/mL (0.55-4.78) Urinalysis Test 12/30/24 12:12 Urine Color Light-yellow (Yellow) Urine Clarity Clear (Clear) Urine pH 6.0 (5.0-9.0) Urine Specific Lewis 1.023 (1.001-1.035) Urine Protein Trace (Negative) H Urine Ketones Negative (Negative) Urine Blood Negative /uL (Negative) Urine Nitrite Negative (Negative) Urine Bilirubin Negative (Negative) Urine Urobilinogen Normal mg/dL (Negative) Urine Leukocyte Esterase 2+ /uL (Negative) Urine RBC 22 /hpf (0 - 4) Urine Microscopic WBC 29 /HPF (0-5) H Urine Squamous Epithelial Cells None seen /hpf (<5) Urine Bacteria None seen /hpf (None Seen) Urine Glucose Normal mg/dL (Normal) Microbiology Microbiology Date/Time Source Procedure Growth Status 12/30/24 10:30 Blood Blood Culture - Preliminary NO GROWTH AFTER 24 HOURS OF INCUBATION. Resulted Labs and/or images reviewed: Labs reviewed by me, Image(s) reviewed by me Assessment/Plan Assessment/Plan Impression: -acute hypoxic respiratory failure -acute diastolic heart failure, HefPef -coronary artery disease with previous CABG -? History of CVA -dementia -hypokalemia -obesity Plan: -continue IV diuresis -institute guideline directed medical therapy -continue anticoagulation, check with Cardiology regarding patient being on both aspirin and Eliquis -continue Namenda -potassium replacement -repeat labs and chest x-ray in a.m. Total time spent with patient discussing and formulating plan of care: 35 minutes. This medical document was created using an electronic medical record system with [employer] dictation system. Although this document has been carefully reviewed, there may still be some phonetic and typographical errors. These areas are purely typographical due to imperfections of the software programs, and do not reflect any compromise in the patient's medical care. Plan discussed with: Patient, Other (RN) My Orders Orders - NOEL VALDIVIA NP Procedure Category Date Status Time Potassium Effervesent PHA 01/01/25 Transmitted Tab (Klor-Con/Ef) 10:00 Basic Metabolic Panel LAB 01/01/25 Verified 04:00 Complete Blood Count LAB 01/01/25 Verified 04:00 Chest Xray 1 View XY 01/01/25 Transmitted 04:00 Date of Service: Dec 31, 2024 Billing Provider: NOEL VALDIVIA NP Common Visit Codes: [id number] INP/OBS CARE(HIGH) NOEL VALDIVIA NP Dec 31, 2024 13:25
[2024-12-31] MEDS: POTASSIUM CHL 20 Meq TABLET PO ONE (14:30)
[2025-01-01] MEDS: MELATONIN 5 MG TAB PO PRN (00:26)
--- NOTE | 2025-01-01 06:59 | DVH ---
CHEST RADIOGRAPH Indication: chf Technique: Single frontal view of the chest was obtained Comparison: XY CHEST PORTABLE on DOS: 12/30/24 FINDINGS: Lines and Tubes: None Lungs: No focal consolidation. Pleura: No effusion. No pneumothorax. Cardiomediastinal contours: Cardiomegaly. Bones: No acute osseous abnormality. Status post median sternotomy. IMPRESSION: 1. Pulmonary vascular congestion. Cardiomegaly.
[2025-01-01 07:20] LABS: Basophils # (auto) 0.1 10 ^3/uL (0-0.2); Basophils % (auto) 0.4 % (0.0-2.0); Eosinophils # (auto) 0 10 ^3/uL (0-0.8); Eosinophils % (auto) 0.4 % (0.0-7.0); Hematocrit 27.9 % (36.0-46.0); Hemoglobin 8.6 g/dL (12.2-16.2); Lymphocytes # (auto) 2.2 10 ^3/uL (0.4-5.4); Lymphocytes % (auto) 18.1 % (10.0-50.0); Mean Corpuscular Hemoglobin 25.1 pg (28.0-32.0); Mean Corpuscular Hgb Conc. 30.9 g/dL (32.0-36.0); Mean Corpuscular Volume 81.3 fL (80.0-100.0); Monocytes # (auto) 1.3 10 ^3/uL (0-1.3); Monocytes % (auto) 10.6 % (0.0-12.0); Neutrophils # (auto) 8.7 10 ^3/uL (1.6-8.6); Neutrophils % (auto) 70.5 % (37.0-80.0); Platelet Count (auto) 264 10^3/uL (140-450); Red Blood Cells 3.44 10^6/uL (4.0-5.20); Red Cell Distribution Width 17.4 % (11.8-14.3); White Blood Cell 12.3 10^3/uL (4.4-10.8)
[2025-01-01 07:39] LABS: Albumin 4.1 g/dL (3.2-4.8); Alkaline Phosphatase 86 U/L (46-116); Anion Gap 6 (5-15); BUN/Creatinine Ratio 23.4 (10.0-20.0); Blood Urea Nitrogen 22 mg/dL (9-23); Calcium 9.3 mg/dL (8.7-10.4); Chloride 103 mmol/L (98-107); Glucose 95 mg/dL (74-106); Magnesium 2.1 mg/dL (1.6-2.6); Potassium 3.7 mmol/L (3.5-5.1); Sodium 140 mmol/L (136-145); Total Protein 6.4 g/dL (5.7-8.2)
[2025-01-01 07:40] LABS: Bilirubin, Total 0.5 mg/dL (0.2-1.0)
[2025-01-01 07:43] LABS: Alanine Aminotransferase 65 U/L (7-40); Aspartate Aminotransferase 100 U/L (13-40); Carbon Dioxide 31 mmol/L (20-31)
[2025-01-01 08:00] VITALS: PULSE 62
[2025-01-01 08:59] VITALS: BP 142/46; PULSE 71; RESP 18; TEMP 97.9; O2SAT 92
[2025-01-01] MEDS: POTASSIUM EFFERVESENT TAB 25 MEQ PO SCH (10:32)
[2025-01-01] MEDS: ASPirin 81 mg TAB PO SCH (10:34)
--- NOTE | 2025-01-01 11:46 | DVHPN2 ---
Progress Note Date Seen: Jan 01, 2025 Medical Necessity Reason Pt with a Central, PICC or Fol: No Subjective Patient reports: Feels better Objective vital signs Vital Sign Date Time Temp Pulse Resp B/P (MAP) Pulse Ox O2 Delivery O2 Flow Rate FiO2 01/01/25 10:33 71 142/50 01/01/25 08:59 97.9 18 92 97.9 12/31/24 20:00 Room Air* 0 21 Total Intake and Output 12/31/24 12/31/24 01/01/25 15:00 23:00 07:00 Intake Total 50 ml 740 ml 360 ml Output Total 1300 ml 1800 ml Balance 50 ml -560 ml -1440 ml medications Current Medications Medications Dose Ordered Sig/Ursula Route Start Time Stop Time Status Last Admin Dose Admin Furosemide 40 mg BIDD IV 12/30/24 18:00 01/01/25 06:09 40 MG Sodium Chloride 10 ml Q8HR IV 12/30/24 22:00 01/01/25 05:49 10 ML Docusate Sodium 100 mg BIDPRN PRN PO 12/30/24 14:30 Acetaminophen 650 mg Q6HP PRN PO 12/30/24 14:30 Acetaminophen/ Hydrocodone Bitart 1 tab Q4HP PRN PO 12/30/24 14:30 Ondansetron HCl 4 mg Q4HP PRN IV 12/30/24 14:30 Amiodarone HCl 200 mg DAILY PO 12/31/24 10:00 01/01/25 10:32 200 MG Apixaban 2.5 mg BID PO 12/30/24 22:00 01/01/25 10:33 2.5 MG Levothyroxine Sodium 25 mcg DAILY@0600 PO 12/31/24 06:00 01/01/25 05:49 25 MCG Metoprolol Tartrate 25 mg BID PO 12/30/24 22:00 01/01/25 10:33 25 MG Pantoprazole Sodium 40 mg DAILY@0700 PO 12/31/24 07:00 01/01/25 05:50 40 MG Sacubitril/ Valsartan 1 tab BID PO 12/30/24 22:00 01/01/25 10:32 1 TAB Atorvastatin Calcium 40 mg HS PO 12/30/24 22:00 12/31/24 21:13 40 MG Cyanocobalamin 1,000 mcg DAILY PO 12/31/24 10:00 01/01/25 10:33 1,000 MCG Memantine 10 mg DAILY PO 12/31/24 10:00 01/01/25 10:32 10 MG Ceftriaxone Sodium 50 ml @ 100 mls/hr DAILY@09 IV 12/31/24 09:00 01/01/25 10:32 100 MLS/HR Aspirin 81 mg DAILY PO 01/01/25 10:00 01/01/25 10:34 81 MG Potassium Bicarbonate 25 meq DAILY PO 01/01/25 10:00 01/01/25 10:32 25 MEQ Melatonin 10 mg HS PRN PO 12/31/24 23:00 01/01/25 00:26 10 MG Examination: GENERAL:Abnormal, HEENT:Abnormal, LUNGS:Abnormal, CVS:Abnormal, ABDOMEN:Abnormal laboratory and microbiology Laboratory Tests 01/01/25 06:45 Test 01/01/25 06:45 Range/Units Serum Glucose 95 74-106 mg/dL Microbiology Date/Time Source Procedure Growth Status 12/30/24 10:30 Blood Blood Culture - Preliminary NO GROWTH AFTER 48 HOURS OF INCUBATION. Resulted Problem List/Assessment/Plan Problem List/Assessment/Plan Acute on chronic decompensated HFpEF, NYHA Class III Paroxysmal atrial fibrillation, on amiodarone/low-dose Eliquis Status post aortic valve replacement (bioprosthetic) Hx CVA with Broca's aphasia Anemia, likely of chronic disease Hypertension Dyslipidemia Thyroid disease Dementia Obesity Plan/Recommendation We will continue the following plan/recommendations ( * Echocardiogram revealed EF 60% * Moderate to severe LVH. Moderate * Preload and afterload reduction as tolerated * Antiarrhythmic therapy, amiodarone * NOAC therapy, low-dose Eliquis * Single-antiplatelet therapy & lipid-lowering agent * Replete electrolytes as necessary * * pt seen , had sitter last night, confused, fu dr paulson after DC Plan discussed with: Patient Date of Service: Jan 01, 2025 Billing Provider: NETTIE BERNARD MD Common Visit Codes: NOT BILLABLE NETTIE BERNARD MD Jan 01, 2025 11:46
[2025-01-01 12:31] VITALS: BP 117/41; PULSE 60; RESP 18; TEMP 97.3; O2SAT 97
--- NOTE | 2025-01-01 14:21 | DVHPN2 ---
Subjective Patient was denies any symptoms. Reviewed: Care Plan, H&P, Labs, Medications Changes from previous H/P or p: No Changes General: Per HPI Objective Vitals Vital Signs Date Time Temp Pulse Resp B/P (MAP) Pulse Ox O2 Delivery O2 Flow Rate FiO2 01/01/25 12:31 97.3 60 18 117/41 (66) 97 97.3 01/01/25 08:00 Room Air* 0 21 Intake/Output Intake and Output 01/01/25 07:00 Intake Total 1150 ml Output Total 3100 ml Balance -1950 ml Intake Oral 1100 ml IV Total 50 ml Output Urine Total 3100 ml # Bowel Movements 1 General Appearance: Alert, Oriented X3, Cooperative, No acute distress HEENT: Atraumatic, PERRLA Lungs: Clear to auscultation, Normal air movement Cardiovascular: Normal S1, Normal S2 Abdomen: Normal bowel sounds, Soft, No tenderness, No hepatospenomegaly Musculoskeletal: Normal sensory function, Normal motor function Neuro: Normal gait, Normal speech Skin: Dry, Intact Psych/Mental Status: Mental status NL, Mood NL Medications Current Medications Medications Dose Ordered Sig/Ursula Route Start Time Stop Time Status Last Admin Dose Admin Furosemide 40 mg BIDD IV 12/30/24 18:00 01/01/25 06:09 40 MG Sodium Chloride 10 ml Q8HR IV 12/30/24 22:00 01/01/25 05:49 10 ML Docusate Sodium 100 mg BIDPRN PRN PO 12/30/24 14:30 Acetaminophen 650 mg Q6HP PRN PO 12/30/24 14:30 Acetaminophen/ Hydrocodone Bitart 1 tab Q4HP PRN PO 12/30/24 14:30 Ondansetron HCl 4 mg Q4HP PRN IV 12/30/24 14:30 Amiodarone HCl 200 mg DAILY PO 12/31/24 10:00 01/01/25 10:32 200 MG Apixaban 2.5 mg BID PO 12/30/24 22:00 01/01/25 10:33 2.5 MG Levothyroxine Sodium 25 mcg DAILY@0600 PO 12/31/24 06:00 01/01/25 05:49 25 MCG Metoprolol Tartrate 25 mg BID PO 12/30/24 22:00 01/01/25 10:33 25 MG Pantoprazole Sodium 40 mg DAILY@0700 PO 12/31/24 07:00 01/01/25 05:50 40 MG Sacubitril/ Valsartan 1 tab BID PO 12/30/24 22:00 01/01/25 10:32 1 TAB Atorvastatin Calcium 40 mg HS PO 12/30/24 22:00 12/31/24 21:13 40 MG Cyanocobalamin 1,000 mcg DAILY PO 12/31/24 10:00 01/01/25 10:33 1,000 MCG Memantine 10 mg DAILY PO 12/31/24 10:00 01/01/25 10:32 10 MG Ceftriaxone Sodium 50 ml @ 100 mls/hr DAILY@09 IV 12/31/24 09:00 01/01/25 10:32 100 MLS/HR Aspirin 81 mg DAILY PO 01/01/25 10:00 01/01/25 10:34 81 MG Potassium Bicarbonate 25 meq DAILY PO 01/01/25 10:00 01/01/25 10:32 25 MEQ Melatonin 10 mg HS PRN PO 12/31/24 23:00 01/01/25 00:26 10 MG Laboratory Results Laboratory Tests 01/01/25 06:45 Chemistry Test 01/01/25 06:45 Albumin 4.1 g/dL (3.2-4.8) Calcium Level 9.3 mg/dL (8.7-10.4) Magnesium Level 2.1 mg/dL (1.6-2.6) Total Protein 6.4 g/dL (5.7-8.2) LFT Test 01/01/25 06:45 Alanine Aminotransferase (ALT) 65 U/L (7-40) H Alkaline Phosphatase 86 U/L (46-116) Aspartate Amino Transferase (AST) 100 U/L (13-40) H Total Bilirubin 0.5 mg/dL (0.2-1.0) Urinalysis Test 12/30/24 12:12 Urine Color Light-yellow (Yellow) Urine Clarity Clear (Clear) Urine pH 6.0 (5.0-9.0) Urine Specific [place] 1.023 (1.001-1.035) Urine Protein Trace (Negative) H Urine Ketones Negative (Negative) Urine Blood Negative /uL (Negative) Urine Nitrite Negative (Negative) Urine Bilirubin Negative (Negative) Urine Urobilinogen Normal mg/dL (Negative) Urine Leukocyte Esterase 2+ /uL (Negative) Urine RBC 22 /hpf (0 - 4) Urine Microscopic WBC 29 /HPF (0-5) H Urine Squamous Epithelial Cells None seen /hpf (<5) Urine Bacteria None seen /hpf (None Seen) Urine Glucose Normal mg/dL (Normal) Microbiology Microbiology Date/Time Source Procedure Growth Status 12/30/24 10:30 Blood Blood Culture - Preliminary NO GROWTH AFTER 48 HOURS OF INCUBATION. Resulted Labs and/or images reviewed: Labs reviewed by me, Image(s) reviewed by me Assessment/Plan Assessment/Plan Impression: -acute hypoxic respiratory failure -acute diastolic heart failure, HefPef -coronary artery disease with previous CABG -? History of CVA -dementia -hypokalemia -obesity Plan: Events: Patient appears to be more coherent. Weaned off of oxygen. Chest x- ray with persistent pulmonary vascular congestion. Discussion made with patient's daughter, via telephone. All questions answered. -DC Murcia catheter -physical therapy -continue IV diuresis -institute guideline directed medical therapy -continue aspirin Eliquis -continue Namenda -repeat labs and chest x-ray in a.m. -reassess for discharge in a.m. Total time spent with patient discussing and formulating plan of care: 35 minutes. This medical document was created using an electronic medical record system with [employer] dictation system. Although this document has been carefully reviewed, there may still be some phonetic and typographical errors. These areas are purely typographical due to imperfections of the software programs, and do not reflect any compromise in the patient's medical care. Plan discussed with: Patient, Other (RN) My Orders Orders - NOEL VALDIVIA NP Procedure Category Date Status Time Basic Metabolic Panel LAB 01/02/25 Verified 04:00 Complete Blood Count LAB 01/02/25 Verified 04:00 Chest Portable XY 01/02/25 Logged 04:00 Pt Request For Service PT 01/01/25 Logged 14:10 Discontinue Murcia VU 01/01/25 In Process Catheter 14:10 Furosemide Injection PHA 01/02/25 Logged (Lasix Injection) 10:00 Date of Service: Jan 01, 2025 Billing Provider: NOEL VALDIVIA NP Common Visit Codes: [id number] INP/OBS CARE(HIGH) NOEL VALDIVIA NP Jan 01, 2025 14:21
[2025-01-01 16:31] VITALS: BP 121/31; PULSE 60; RESP 18; TEMP 97.9; O2SAT 97
[2025-01-01 20:00] VITALS: PULSE 56; PULSE 58
[2025-01-01 21:00] VITALS: BP 109/50; PULSE 54; RESP 17; TEMP 97.9; O2SAT 95
[2025-01-02 05:00] VITALS: BP 129/39; PULSE 66; RESP 19; TEMP 98.2; O2SAT 95
[2025-01-02 07:06] LABS: Albumin 3.9 g/dL (3.2-4.8)
[2025-01-02 07:07] LABS: Bilirubin, Total 0.4 mg/dL (0.2-1.0)
[2025-01-02 07:10] LABS: Anion Gap 9 (5-15)
[2025-01-02 07:11] LABS: Calcium 9.4 mg/dL (8.7-10.4); Carbon Dioxide 30 mmol/L (20-31); Chloride 102 mmol/L (98-107); Potassium 3.9 mmol/L (3.5-5.1); Sodium 141 mmol/L (136-145)
[2025-01-02 07:12] LABS: Aspartate Aminotransferase 171 U/L (13-40); Basophils # (auto) 0.1 10 ^3/uL (0-0.2); Basophils % (auto) 0.8 % (0.0-2.0); Eosinophils # (auto) 0.1 10 ^3/uL (0-0.8); Hemoglobin 8.7 g/dL (12.2-16.2); Lymphocytes # (auto) 1.8 10 ^3/uL (0.4-5.4); Mean Corpuscular Hemoglobin 25.9 pg (28.0-32.0); Neutrophils # (auto) 5.3 10 ^3/uL (1.6-8.6); Platelet Count (auto) 263 10^3/uL (140-450)
[2025-01-02 07:15] LABS: BUN/Creatinine Ratio 21.6 (10.0-20.0); Hematocrit 27.3 % (36.0-46.0); Lymphocytes % (auto) 21.6 % (10.0-50.0); Mean Corpuscular Hgb Conc. 31.8 g/dL (32.0-36.0); Mean Corpuscular Volume 81.5 fL (80.0-100.0); Monocytes # (auto) 1.1 10 ^3/uL (0-1.3); Monocytes % (auto) 13.2 % (0.0-12.0); Neutrophils % (auto) 63.4 % (37.0-80.0); Red Blood Cells 3.35 10^6/uL (4.0-5.20); Red Cell Distribution Width 17.5 % (11.8-14.3); White Blood Cell 8.4 10^3/uL (4.4-10.8)
[2025-01-02 07:21] LABS: Alanine Aminotransferase 104 U/L (7-40); Alkaline Phosphatase 92 U/L (46-116); Blood Urea Nitrogen 21 mg/dL (9-23); Glucose 92 mg/dL (74-106); Magnesium 2.3 mg/dL (1.6-2.6); Total Protein 6.1 g/dL (5.7-8.2)
[2025-01-02 08:00] VITALS: PULSE 68; RESP 18; O2SAT 98
[2025-01-02 09:00] VITALS: BP 128/52; PULSE 69; RESP 16; TEMP 98.2; O2SAT 93
[2025-01-02] MEDS: FUROSEMIDE 40 MG/4 ML VIAL IV SCH (09:24)
--- NOTE | 2025-01-02 10:55 | DVH ---
INDICATION: chf TECHNIQUE: Frontal view of the chest. COMPARISON: XY CHEST XRAY 1 VIEW on DOS: 01/01/25, XY CHEST PORTABLE on DOS: 12/30/24, XY CHEST XRAY 1 VIEW on DOS: 06/13/24, XY CHEST PORTABLE on DOS: 01/25/24, XY CHEST PORTABLE on DOS: 01/16/24 FINDINGS: . The heart and mediastinal contours are grossly unremarkable. There is no evidence of pleural disea se. The lungs are clear. The bony structures of the chest are intact without fracture. IMPRESSION: 1. No evidence of acute disease.
--- NOTE | 2025-01-02 12:20 | DVHDS2 ---
Discharge Summary Date of Admission Dec 30, 2024 at 14:21 Date of Discharge: Jan 02, 2025 Admitting Diagnosis Hypoxic respiratory failure Labs/Diagnostic Data: Laboratory Results Test 01/02/25 06:12 12/30/24 13:24 12/30/24 12:12 12/30/24 11:56 White Blood Count 8.4 10^3/uL (4.4-10.8) Red Blood Count 3.35 10^6/uL (4.0-5.20) Hemoglobin 8.7 g/dL (12.2-16.2) Hematocrit 27.3 % (36.0-46.0) Mean Corpuscular Volume 81.5 fL (80.0-100.0) Mean Corpuscular Hemoglobin 25.9 pg (28.0-32.0) Mean Corpuscular Hemoglobin Concent 31.8 g/dL (32.0-36.0) Red Cell Distribution Width 17.5 % (11.8-14.3) Platelet Count 263 10^3/uL (140-450) Mean Platelet Volume 8.1 fL (6.9-10.8) Neutrophils (%) (Auto) 63.4 % (37.0-80.0) Lymphocytes (%) (Auto) 21.6 % (10.0-50.0) Monocytes (%) (Auto) 13.2 % (0.0-12.0) Eosinophils (%) (Auto) 1.0 % (0.0-7.0) Basophils (%) (Auto) 0.8 % (0.0-2.0) Neutrophils # (Auto) 5.3 10 ^3/uL (1.6-8.6) Lymphocytes # (Auto) 1.8 10 ^3/uL (0.4-5.4) Monocytes # (Auto) 1.1 10 ^3/uL (0-1.3) Eosinophils # (Auto) 0.1 10 ^3/uL (0-0.8) Basophils # (Auto) 0.1 10 ^3/uL (0-0.2) Nucleated Red Blood Cells 0.0 % Sodium Level 141 mmol/L (136-145) Potassium Level 3.9 mmol/L (3.5-5.1) Chloride Level 102 mmol/L (98-107) Carbon Dioxide Level 30 mmol/L (20-31) Anion Gap 9 (5-15) Blood Urea Nitrogen 21 mg/dL (9-23) Creatinine 0.97 mg/dL (0.550-1.02) Glomerular Filtration Rate Calc 58 mL/min (>90) BUN/Creatinine Ratio 21.6 (10.0-20.0) Serum Glucose 92 mg/dL (74-106) Calcium Level 9.4 mg/dL (8.7-10.4) Magnesium Level 2.3 mg/dL (1.6-2.6) Total Bilirubin 0.4 mg/dL (0.2-1.0) Aspartate Amino Transferase (AST) 171 U/L (13-40) Alanine Aminotransferase (ALT) 104 U/L (7-40) Alkaline Phosphatase 92 U/L (46-116) Total Protein 6.1 g/dL (5.7-8.2) Albumin 3.9 g/dL (3.2-4.8) Troponin I High Sensitivity 55 ng/L (</=34) Thyroid Stimulating Hormone (TSH) 2.49 uIU/mL (0.55-4.78) Free Thyroxine (T4) Calculated 1.58 ng/dL (0.89-1.76) Urine Color Light-yellow (Yellow) Urine Clarity Clear (Clear) Urine pH 6.0 (5.0-9.0) Urine Specific [place] 1.023 (1.001-1.035) Urine Protein Trace (Negative) Urine Ketones Negative (Negative) Urine Blood Negative /uL (Negative) Urine Nitrite Negative (Negative) Urine Bilirubin Negative (Negative) Urine Urobilinogen Normal mg/dL (Negative) Urine Leukocyte Esterase 2+ /uL (Negative) Urine RBC 22 /hpf (0 - 4) Urine Microscopic WBC 29 /HPF (0-5) Urine Squamous Epithelial Cells None seen /hpf (<5) Urine Bacteria None seen /hpf (None Seen) Urine Glucose Normal mg/dL (Normal) Influenza Type A Antigen Negative (Negative) Influenza Type B Antigen Negative (Negative) SARS-CoV-2 Antigen (Rapid) Negative (NEGATIVE) Test 12/30/24 11:20 12/30/24 10:30 Blood Gas Specimen Type Arterial Blood Gas Sample Site Left radial Blood Gas Patient Temperature 37.0 Arterial Blood Date Drawn [id number] Arterial Blood pH 7.493 (7.350-7.450) Arterial Blood Partial Pressure CO2 29.9 mmHg (32.0-45.0) Arterial Blood Partial Pressure O2 54.5 mmHg (83.0-108.0) Arterial Blood HCO3 22.4 mmol/L (21.0-28.0) Arterial Blood Oxygen Saturation 88.8 % (94.0-98.0) Arterial Blood Base Excess -0.4 mmol/L (-2.0-3.0) Arterial Blood Oxyhemoglobin 88.1 % (94.0-98.0) Arterial Blood Carboxyhemoglobin 0.4 % (0.5-1.5) Arterial Blood Methemoglobin 0.4 % (0.0-1.5) Jassi Test Yes Blood Gas Total Hemoglobin 9.10 g/dL (12.0-16.0) Blood Gas Liter Flow 0.00 Blood Gas Modality Room air FiO2 % 21.0 Blood Gas Critical Value Read Back Yes Blood Gas Notified Whom anabel Sher Blood Gas Notified Time [id number] Blood Gas Notified By Posting Clerk cyrus rivas Lactic Acid Level 1.3 mmol/L (0.4-2.0) B-Type Natriuretic Peptide 883.55 pg/mL (0-100) Other Laboratory Tests 01/02/25 06:12 Brief Hx & Hospital Course: History of Present Illness 84 y/o obese F is BIBA for c/o shortness of breath and wheezing, today. Onset of symptoms at 4:30 a.m. this morning when she woke up. She comes from home. Per EMS, pulse ox initially was 90% at room air. Patient does not use oxygen at home. Then reported not to have any lung disease. En route to ED, patient was given two breathing treatment, with improvement to SpO2 of 100%. Patient denies any chest pain, palpitations, cough, congestion, fever, chills, or other associated symptoms at this time. Per EMS patient is in 0 8 x 1 and is currently at baseline. Vitals on scene: pulse rate of 65, respiratory rate of 18, SpO2 of 90%RA, and a blood pressure fo 158/74 Vitals upon ED arrival: pulse rate of 61, respiratory rate of 16, SpO2 of 100%, and a blood pressure of 129/61 Course of hospitalization: Patient was treated with IV diuresis, empiric antibiotic therapy, bronchodilators, as well as O2 supplementation. Patient was given IV steroids while in the emergency room. Patient was noted to have white blood cell count that did trend down. All cultures has been negative. Patient has been weaned off of oxygen. Murcia catheter has been removed. Patient has been ambulating. Long discussion was made with the patient was family regarding diagnosis and plan of care which includes acute diastolic heart failure. Patient will follow up with her primary core loader in 1-2 weeks. Medication reconciliation was performed with no new prescriptions required at this time. All questions answered. Physical examination General: Alert and Oriented x3. No acute distress. Well-nourished. Eyes: EOMI. Anicteric. HENT: Moist mucous membranes. Lungs: Clear to auscultation bilaterally. No accessory muscle use. Cardiovascular: Regular rate and rhythm. No murmur. No JVD. Abdomen: Soft, non-tender and non-distended. No palpable masses. Extremities: No edema. Non-tender. Skin: No rashes or lesions. Warm. Neurologic: No focal neurological deficits. CN II-XII grossly intact, but not individually tested. Psychiatric: Cooperative. Appropriate mood and affect. Total time spent with patient discussing and formulating plan of care: 35 minutes. This medical document was created using an electronic medical record system with [employer] computerized dictation system. Although this document has been carefully reviewed, there may still be some phonetic and typographical errors. These areas are purely typographical due to imperfections of the software programs, and do not reflect any compromise in the patient's medical care. Consults/Reason for consult Cardiology: NSTEMI type 2 Condition at Discharge: Fair Final Diagnosis/Problems List Acute Hypoxic Respiratory Failure Secondary diagnosis: -acute hypoxic respiratory failure -acute diastolic heart failure, HefPef -coronary artery disease with previous CABG -? History of CVA -dementia -hypokalemia -obesity Discharge Disposition: Home Discharge Instruct/Medications Diet: Cardiac 2g Na,low cholest Activity: No Restrictions, As Tolerated Follow Up/Referral: Follow up with Dr. Dodd in 1-2 weeks Medications: Continue all home medications 36 Discharge Statement: "Patient was advised to return to the ER or call 911 if any headaches, dizziness, shortness of breath, chest pain, abdominal pain, bleeding, fevers, or worsening of medical condition. Patient was counseled about treatment plan, medications, possible side effects, patientverbalized understanding. All questions were answered to the best of my ability. This discharge took greater then 30 minutes in planning, reviewing documentation, counseling the patient, and discussing with other team members." ASSESSMENT ASSESSMENT Assessment Acute Hypoxic Respiratory Failure Date of Service: Jan 02, 2025 Billing Provider: NOEL VALDIVIA NP Common Visit Codes: [id number]/[id number] DISCH DAY >30min NOEL VALDIVIA NP Jan 02, 2025 12:20
[2025-01-02 12:33] VITALS: BP 138/52; PULSE 61; RESP 16; TEMP 98.8; O2SAT 98
[2025-01-02 12:44] VITALS: BP 138/52; PULSE 63; RESP 18; TEMP 98.2; O2SAT 96
== END 2025-01-02 13:10 | disposition home or self-care (01) | DRG 280 ==
LOC: ER 10:11 → EDBD 10:11 → OVERFLOW 14:21 → TELE-WESTW 22:19
PROVIDERS: ADMIT Nurse Practitioner Acute Care; ATTEND Nurse Practitioner Acute Care
DX: I11.0 Hypertensive heart disease with heart failure (principal); I50.33 Acute on chronic diastolic (congestive) heart failure; I21.A1 Myocardial infarction type 2; J96.01 Acute respiratory failure with hypoxia; N39.0 Urinary tract infection, site not specified; I25.10 Atherosclerotic heart disease of native coronary artery without angina pectoris; E87.6 Hypokalemia; Z20.822 Contact with and (suspected) exposure to COVID-19; E66.9 Obesity, unspecified; E78.5 Hyperlipidemia, unspecified; I44.7 Left bundle-branch block, unspecified; D64.9 Anemia, unspecified; R79.89 Other specified abnormal findings of blood chemistry; I48.0 Paroxysmal atrial fibrillation; E03.9 Hypothyroidism, unspecified; F03.90 Unspecified dementia, unspecified severity, without behavioral disturbance, psychotic disturbance, mood disturbance, and anxiety; Z95.1 Presence of aortocoronary bypass graft; I69.320 Aphasia following cerebral infarction; Z88.5 Allergy status to narcotic agent; Z88.1 Allergy status to other antibiotic agents; Z80.49 Family history of malignant neoplasm of other genital organs; Z79.899 Other long term (current) drug therapy; Z79.01 Long term (current) use of anticoagulants; Z95.3 Presence of xenogenic heart valve; Z68.33 Body mass index [BMI] 33.0-33.9, adult; I25.2 Old myocardial infarction
CPT/HCPCS: 36415; 36600; 71045; 80053; 81001; 82805; 83605; 83735; 83880; 84439; 84443; 84484; 85025; 87040; 87426; 87804; 93005; 93306; 94640; 96374; 96375; 97163; 99291; G0378

== ENCOUNTER 2025-02-13 04:33 | Inpatient (IN) | payer MEDICARE, MEDICAID ==
[2025-02-13] VITALS (8 sets, daily range): BP systolic 150; BP diastolic 65; PULSE 55–69; RESP 18–24; TEMP 98.1; O2SAT 95–100
[~2025-02-13] VITALS: Ht 157.5 cm; Wt 80.4 kg
--- NOTE | 2025-02-13 05:02 | ED.PDOC ---
History of Present Illness HPI Comments 84 y/o obese F is BIBA from home for 1x month history of shortness of breath with exertion, today. Per EMS report, patient still endorses on ongoing symptoms following previous admission, last month, for same complaint at [facility]. Vitals were noted to have been stable and within normal limits, with shortness of breath reproduced upon walking a few steps from her house to the gurney. Patient was also observed to bilateral pedal edema amidst endorsement on Lasix medications being doubled following aforementioned previous admission. Patient has a significant history that includes: AHRF, AFib, CAD, CABG, CVA (bilateral cerebellar and chavez), dementia, hypokalemia, HLD, HTN, STEMI, and hypothyr oidism. At time of assessment, patient is a poor historian and endorses only of current complaint. She denies having any chest pain, cough, congestion, fever chills, nausea, or vomiting. Chief Complaint: Shortness of Breath Time Seen by MD: 04:40 Primary Care Provider: Scarlett ALEJANDRO Reviewed Notes: Nurses Notes, Blocker Automatic Notes, Medications, Allergies Allergies: Coded Allergies: Codeine (Verified Allergy, Unknown, 01/28/17) Erythromycin (Verified Allergy, Unknown, 01/28/17) Home Meds Reported Medications Cyanocobalamin (Vitamin B-12) 1,000 Mcg Tab, 1000 MCG PO DAILY 06/14/24 Potassium Chloride (Potassium Chloride ER) 20 Meq Tab, 20 MEQ PO DAILY 06/14/24 Levothyroxine Sodium (Levothyroxine Sodium) 25 Mcg Tab, 1 TAB PO ONCE DAILY TAKE ONE TABLET BY MOUTH ONCE DAILY 1 HOUR BEFORE BREAKFAST FOR HYPOTHYROID 06/14/24 Amiodarone Hcl (Amiodarone Hcl) 200 Mg Tab, 200 MG PO ONCE DAILY FOR IRREGULAR HEARTBEATS RELATED TO ATRIAL FIBRILLATION 06/14/24 Memantine Hydrochloride (Memantine HCl) 10 Mg Tab, 10 MG PO DAILY, TAB 04/16/23 Sacubitril-Valsartan (Entresto 24-26 mg) 1 Tab Tab, 1 TAB PO BID 04/16/23 Metoprolol Tartrate (Metoprolol Tartrate) 25 Mg Tab, 25 MG PO BID, TAB 04/16/23 Atorvastatin Calcium (ATORVASTATIN CALCIUM) 40 Mg Tab, 1 TAB PO DAILY 04/16/23 Furosemide (Lasix) 40 Mg Tab, 1 TAB PO DAILY 04/16/23 Amlodipine Besylate (Amlodipine Besylate) 5 Mg Tab, 1 TAB PO DAILY 04/16/23 Apixaban Base (ELIQUIS) 2.5 Mg Tab, 1 TAB PO BID 04/16/23 Pantoprazole Sodium Sesquihydr (Pantoprazole Sodium) 40 Mg Tab, 1 TAB PO DAILY 04/16/23 Information Source: Patient, Emergency Med Personnel Mode of Arrival: EMS Severity: Moderate Timing: Weeks Duration: Since onset Prehospital treatment: 12 Lead EKG, Accucheck, [facility] Past Medical History PAST MEDICAL HISTORY: AFIB, CAD, CHF, CVA (bilateral cerebellar and chavez), Dementia, High Lipids, HTN, MN (NSTEMI), Thyroid (hypothryoidism ) Past Medical History (Other): AHRF hypokalemia Surgical History: CABG MACHINE CELL TUBER History: No Pertinent MACHINE CELL TUBER History Family History Family History: Reviewed,noncontributory to illness Social History Smoker: Non-Smoker Alcohol: Denies ETOH Use Drugs: Denies Drug Use Lives In: Home All Other Systems: Reviewed and Negative (Comprehensive systems review obtained and negative except for what is stated in the HPI.) Physical Exam General Appearance: No Apparent Distress, Obese, Other (pleasantly confused ) HEENT: Normal ENT Inspection, Pharynx Normal, TMs Normal Neck: Full Range of Motion, Non-Tender, Normal, Normal Inspection Respiratory: Chest Non-Tender, Lungs Clear, No Accessory Muscle Use, No Respi ratory Distress, Normal Breath Sounds Cardiovascular: No Edema, No JVD, No Murmur, No Gallop, Normal Peripheral Pulses, Regular Rate/Rhythm Breast Exam: Deferred Gastrointestinal: No Organomegaly, Non Tender, No Pulsatile Mass, Normal Bowel Sounds, Soft Genitalia: Deferred Pelvic: Deferred Rectal: Deferred Extremities: No calf tenderness, Normal capillary refill, Normal inspection, Normal range of motion, Non-tender, No pedal edema Musculoskeletal : Apperance: Normal Neurologic: Alert, behavioral analyst II-XII nml as Tested, No Motor Deficits, Normal Affect, Normal Mood, No Sensory Deficits, Other (pleasantly confused ) Cerebellar Function: Normal Reflexes: Normal Skin: Dry, Normal Color, Warm Lymphatic: No Adenopathy Was a procedure done? Was a procedure done?: No Differential Dx Considerations may include: URI, PNA, viral syndrome, PE, ACS, [place], respiratory failure, among others X-Ray, Labs, Meds, VS Vital Signs Date Time Temp Pulse Resp B/P (MAP) Pulse Ox O2 Delivery O2 Flow Rate FiO2 02/13/25 04:36 98.8 60 22 153/53 (86) 96 98.8 Lab Test 02/13/25 05:44 02/13/25 04:46 Range/Units Troponin I High Sensitivity Pending 14 </=34 ng/L White Blood Count 9.4 4.4-10.8 10^3/uL Red Blood Count 3.17 L 4.0-5.20 10^6/uL Hemoglobin 7.7 L 12.2-16.2 g/dL Hematocrit 24.7 L 36.0-46.0 % Mean Corpuscular Volume 77.8 L 80.0-100.0 fL Mean Corpuscular Hemoglobin 24.2 L 28.0-32.0 pg Mean Corpuscular Hemoglobin Concent 31.0 L 32.0-36.0 g/dL Red Cell Distribution Width 18.1 H 11.8-14.3 % Platelet Count 252 140-450 10^3/uL Mean Platelet Volume 8.6 6.9-10.8 fL Neutrophils (%) (Auto) 75.5 37.0-80.0 % Lymphocytes (%) (Auto) 11.9 10.0-50.0 % Monocytes (%) (Auto) 11.4 0.0-12.0 % Eosinophils (%) (Auto) 0.5 0.0-7.0 % Basophils (%) (Auto) 0.7 0.0-2.0 % Neutrophils # (Auto) 7.1 1.6-8.6 10 ^3/uL Lymphocytes # (Auto) 1.1 0.4-5.4 10 ^3/uL Monocytes # (Auto) 1.1 0-1.3 10 ^3/uL Eosinophils # (Auto) 0 0-0.8 10 ^3/uL Basophils # (Auto) 0.1 0-0.2 10 ^3/uL Nucleated Red Blood Cells 0.0 % Sodium Level 144 136-145 mmol/L Potassium Level 4.1 3.5-5.1 mmol/L Chloride Level 108 H 98-107 mmol/L Carbon Dioxide Level 26 20-31 mmol/L Anion Gap 10 5-15 Blood Urea Nitrogen 18 9-23 mg/dL Creatinine 0.88 0.550-1.02 mg/dL Glomerular Filtration Rate Calc 66 >90 mL/min BUN/Creatinine Ratio 20.5 H 10.0-20.0 Serum Glucose 109 H 74-106 mg/dL Calcium Level 8.7 8.7-10.4 mg/dL B-Type Natriuretic Peptide 965.56 0-100 pg/mL Time of 1ST Reevaluation: 05:10 Reevaluation 1ST: Unchanged Patient Education/Counseling: Diagnosis, Treatment Family Education/Counseling: No Family Present Departure 1 Departure Time of Disposition: 05:59 (Patient presents with a worsening shortness of breath and generalized weakness. Patient's workup so far is benign however patient with severe symptoms. We will admit patient for further workup and expert consultation) Impression: Primary Impression: Shortness of breath Additional Impressions: Generalized weakness Dementia Qualified Codes: F03.A0 - Unspecified dementia, mild, without behavioral disturbance, psychotic disturbance, mood disturbance, and anxiety Disposition: ADMITTED INPATIENT Admit to: Med Surg Condition: Serious Critical Care Note Critical Care Time?: No Stability Stability form required: No Heart Score Heart Score: Heart Score Response (Comments) Value History N/A 0 EKG Normal 0 Age >65 2 Risk Factors >3 or Hx ASHD 2 Troponin N/A 0 Total 4 I personally scribed for JERMAINE SANCHEZ MD ([email or web address]) on 02/13/25 at 05:02. Electronically submitted by Grant Espinosa [email or web address]). JERMAINE SANCHEZ MD February 13, 2025 05:02
[2025-02-13 05:15] LABS: Basophils # (auto) 0.1 10 ^3/uL (0-0.2); Eosinophils # (auto) 0 10 ^3/uL (0-0.8); Eosinophils % (auto) 0.5 % (0.0-7.0); Lymphocytes # (auto) 1.1 10 ^3/uL (0.4-5.4); Mean Corpuscular Volume 77.8 fL (80.0-100.0)
[2025-02-13 05:18] LABS: Basophils % (auto) 0.7 % (0.0-2.0); Hematocrit 24.7 % (36.0-46.0); Hemoglobin 7.7 g/dL (12.2-16.2); Lymphocytes % (auto) 11.9 % (10.0-50.0); Mean Corpuscular Hemoglobin 24.2 pg (28.0-32.0); Monocytes # (auto) 1.1 10 ^3/uL (0-1.3); Monocytes % (auto) 11.4 % (0.0-12.0); Neutrophils # (auto) 7.1 10 ^3/uL (1.6-8.6); Neutrophils % (auto) 75.5 % (37.0-80.0); Platelet Count (auto) 252 10^3/uL (140-450); Potassium 4.1 mmol/L (3.5-5.1); Red Blood Cells 3.17 10^6/uL (4.0-5.20); Red Cell Distribution Width 18.1 % (11.8-14.3); Sodium 144 mmol/L (136-145); White Blood Cell 9.4 10^3/uL (4.4-10.8)
[2025-02-13 05:19] LABS: Anion Gap 10 (5-15); Carbon Dioxide 26 mmol/L (20-31)
[2025-02-13 05:24] LABS: BUN/Creatinine Ratio 20.5 (10.0-20.0); Blood Urea Nitrogen 18 mg/dL (9-23)
[2025-02-13 05:33] LABS: Calcium 8.7 mg/dL (8.7-10.4); Chloride 108 mmol/L (98-107); Glucose 109 mg/dL (74-106)
--- NOTE | 2025-02-13 07:10 | DVH ---
EXAM: XR Chest, 1 View CLINICAL INDICATION: sob TECHNIQUE: Frontal view of the chest. COMPARISON: XY CHEST PORTABLE on DOS: 01/02/25, XY CHEST XRAY 1 VIEW on DOS: 01/01/25, XY CHEST MADELYN BLE on DOS: 12/30/24, XY CHEST XRAY 1 VIEW on DOS: 06/13/24, XY CHEST PORTABLE on DOS: 01/25/24 FINDINGS: LUNGS AND PLEURAL SPACES: See below. HEART: Cardiomegaly with pulmonary congestion and edema. Superimposed pneumonia cannot be excluded. MEDIASTINUM: Unremarkable. Normal mediastinal contour. BONES/JOINTS: Unremarkable. No acute fracture. OTHER FINDINGS: . IMPRESSION: Cardiomegaly with pulmonary congestion and edema. Superimposed pneumonia cannot be excluded.
--- NOTE | 2025-02-13 09:55 | DVH ---
EXAM: CT HEAD WITHOUT CONTRAST HISTORY: R/O stroke COMPARISON: CT STROKE CTH on DOS: 06/13/24, CT HEAD WITHOUT CONTRAST on DOS: 01/16/24, CT HEAD WITHOUT CONTRAST on DOS: 04/15/23 TECHNIQUE: Axial images were obtained and reformatted in coronal and sagittal planes. All CT scans at this medical facility are performed using dose modulation techniques as appropriate t o a performed exam including the following: Automated exposure control was utilized; adjustment of th e MA and/or KV according to patient size; and use of iterative reconstruction technique. CT Dose: CTDI volume is 53 mGy. Dose-length product is 1679.5 mGy*cm FINDINGS: Supratentorial Region: No evidence for large acute territorial ischemia. Moderate-sized left frontal encephalomalacia. No intracranial hemorrhage is noted. Posterior Fossa: No acute abnormality. Brainstem: Unremarkable. Sellar/Suprasellar Region: Unremarkable. Ventricles, Cisterns, Sulci: Age-appropriate. Orbits: Unremarkable. Paranasal Sinuses: Unremarkable. Mastoid Air Cells: Unremarkable. Vasculature: Un calc remarkable. Bones/Soft Tissues: No acute abnormality. Other: None. IMPRESSION: 1. No acute intracranial process. 2. 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
--- NOTE | 2025-02-13 10:16 | DVH ---
CLINICAL INFORMATION: Stroke. TECHNIQUE: Axial CTA images of the head and neck were obtained after the uneventful administration o f 100 mL Omnipaque 350 IV contrast. Coronal and sagittal reformatted images and MIP images were obtai josh, reviewed, and stored. Measurements of carotid stenosis are made per NASCET criteria. All CT scan s at this medical facility are performed using dose modulation techniques as appropriate to a perform ed exam including the following: Automated exposure control was utilized; adjustment of the MA and/or KV according to patient size; and use of iterative reconstruction technique. CTDIvol = 22.33, 20.7, 53.7, 0.07, 0.07 mGy DLP = 1679.51 mGy-cm COMPARISON: CT ANGIO HEAD/NECK on DOS: 06/13/24. Noncontrast CT head dated 02/13/2025. FINDINGS: CTA HEAD: Normal anatomic variant origin of the left CABLE WEAVER. Posterior cerebral arteries, basilar artery, and intracranial segments of the distal vertebral arteries are otherwise normal in caliber an d course with no evidence of aneurysm, large vessel occlusion, significant stenosis, or vascular malf ormation. Dense calcification of the cavernous and supraclinoid segments of the distal internal carot id arteries, with areas of moderate narrowing. The anterior and middle cerebral arteries and intracra nial segments of the distal internal carotid arteries are otherwise normal in caliber and course with no evidence of aneurysm, large vessel occlusion, significant stenosis, or vascular malformation. CTA NECK: Normal configuration of the aortic arch with patent origins of the brachiocephalic artery, left common carotid artery, and left subclavian artery. Subclavian arteries are patent with no signif icant stenosis. There is calcified plaque in the carotid bifurcations bilaterally, right greater than left, without significant stenosis. The bilateral common carotid, internal carotid, and external car otid arteries are otherwise patent with no significant stenosis or evidence of dissection. Vertebral arteries are patent with no significant stenosis or evidence of dissection. Partially visualized bila teral pleural effusions in the visualized portions of the chest. Multilevel degenerative disc disease in the cervical spine with disc space narrowing, endplate sclerosis, and endplate spurring. Multilev el facet and uncinate hypertrophy with areas of moderate to severe neural foraminal stenosis. Mild gr martina 1 anterolisthesis of C4 on C5 and grade 1 anterolisthesis of C7 on T1. IMPRESSION: 1. CTA head demonstrates no evidence of large vessel occlusion, aneurysm, or significant stenosis. 2. CTA neck demonstrates no evidence of carotid or vertebral dissection or significant stenosis. 3. Additional findings as detailed above.
[2025-02-13] MEDS ORDERED: HYDROcodone-ACET 5/325MG TAB PO PRN (10:45)
[2025-02-13] MEDS ORDERED: ACETAMINOPHEN 325 MG TAB PO PRN (10:45)
[2025-02-13] MEDS ORDERED: ONDANSETRON HCL 4 MG/2 ML VIAL IV PRN (10:45)
[2025-02-13] MEDS ORDERED: DOCUSATE SOD 100 MG CAP PO PRN (10:45)
--- NOTE | 2025-02-13 11:05 | DVHHP2 ---
History of Present Illness Reason for Visit: Shortness of breath History of Present Illness Christine Medina is an 84-year-old female with past medical history of hypertension, hyperlipidemia, atrial fibrillation, CHF, CVA, obesity, dementia, and hypothyroidism, who came to the hospital for shortness of breath. Patient was recently seen for similar complaints. She has severe shortness of breath with ambulation. As well as bilateral lower extremity edema despite being on diuretics, and recently having dose increased. 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: Other (CVA, Dementia) Endocrine: Hypothyroidism Past Surgical History: Other (open heart surgery-AVR, ) Smoke: No ALCOHOL: none Drugs: None Lives: with Family Domestic Violence: Neg Review of Systems Constitutional: No: Fever, Chills, Sweats, Weakness, Malaise, Other Eyes: No: Pain, Vision change, Conjunctivae inflammation, Eyelid inflammation, Other, Redness ENT: No: Ear pain, Ear discharge, Nose pain, Nose discharge, Nose congestion, Mouth pain, Mouth swelling, Throat pain, Throat swelling, Other Respiratory: Shortness of breath, SOB with excertion; No: Cough, Dry, Wheezing, Hemoptysis, Pleuritic Pain, Sputum, Wheezing, Other Cardiovascular: No: Chest Pain, Palpitations, Orthopnea, Paroxysmal Noc. Dyspnea, Edema, Lt Headedness, Other Gastrointestinal: No: Nausea, Vomiting, Abdominal Pain, Diarrhea, Constipation, Melena, Hematochezia, Other Genitourinary: No Dysuria, No Frequency, No Incontinence, No Hematuria, No Retention, No Other Musculoskeletal: No: other, neck pain, shoulder pain, arm pain, back pain, hand pain, leg pain, foot pain Skin: No: Rash, Lesions, Jaundice, Bruising, Other Neurological: No: Weakness, Numbness, Incoordination, Change in speech, Confusion, Seizures, Other Allergies: Coded Allergies: Codeine (Verified Allergy, Unknown, 01/28/17) Erythromycin (Verified Allergy, Unknown, 01/28/17) Medications Current Medications Medications Dose Ordered Sig/Ursula Route Start Time Stop Time Status Last Admin Dose Admin Sodium Chloride 10 ml Q8HR IV 02/13/25 14:00 UNV Acetaminophen/ Hydrocodone Bitart 1 tab Q4HP PRN PO 02/13/25 10:45 UNV Ondansetron HCl 4 mg Q4HP PRN IV 02/13/25 10:45 UNV Docusate Sodium 100 mg BIDPRN PRN PO 02/13/25 10:45 UNV Acetaminophen 650 mg Q6HP PRN PO 02/13/25 10:45 UNV Amlodipine Besylate 5 mg DAILY PO 02/14/25 10:00 UNV Apixaban 2.5 mg BID PO 02/13/25 22:00 UNV Furosemide 40 mg DAILY PO 02/14/25 10:00 UNV Levothyroxine Sodium 25 mcg DAILY PO 02/14/25 10:00 UNV Metoprolol Tartrate 25 mg BID PO 02/13/25 22:00 UNV Pantoprazole Sodium 40 mg DAILY PO 02/14/25 10:00 UNV Sacubitril/ Valsartan 1 tab BID PO 02/13/25 22:00 UNV Patient Own Medication 1 tab DAILY PO 02/14/25 10:00 UNV Patient Own Medication 1,000 mcg DAILY PO 02/14/25 10:00 UNV Patient Own Medication 10 mg DAILY PO 02/14/25 10:00 UNV Patient Own Medication 20 meq DAILY PO 02/14/25 10:00 UNV Amiodarone HCl 200 mg DAILY PO 02/14/25 10:00 UNV Exam Vital Signs Vital Signs Date Time Temp Pulse Resp B/P (MAP) Pulse Ox O2 Delivery O2 Flow Rate FiO2 02/13/25 09:12 56 24 95 Nasal Cannula* 2 28 02/13/25 09:10 122/50 (74) 02/13/25 04:36 98.8 98.8 General Appearance: Alert, Cooperative, mild distress, Other (Mostly nonverbal at baseline after CVA, does follow commands well) HEENT: Atraumatic, PERRLA Respiratory: Other (Diminished breath sounds) Cardiovascular: Regular rate, Normal S1, Normal S2 Abdominal: Normal bowel sounds, Soft, No tenderness, No hepatospenomegaly Extremities: No clubbing, No cyanosis, Normal pulses, No tenderness/swelling, Other (bilateral pedal edema) Skin: No rashes, No breakdown, No significant lesion Neuro: Normal speech, Normal tone, Other (Uses a walker at baseline) Psych/Mental Status: Mental status NL, Mood NL Labs/Xrays Labs Test 02/13/25 05:44 02/13/25 04:46 Range/Units Troponin I High Sensitivity 14 </=34 ng/L White Blood Count 9.4 4.4-10.8 10^3/uL Red Blood Count 3.17 L 4.0-5.20 10^6/uL Hemoglobin 7.7 L 12.2-16.2 g/dL Hematocrit 24.7 L 36.0-46.0 % Mean Corpuscular Volume 77.8 L 80.0-100.0 fL Mean Corpuscular Hemoglobin 24.2 L 28.0-32.0 pg Mean Corpuscular Hemoglobin Concent 31.0 L 32.0-36.0 g/dL Red Cell Distribution Width 18.1 H 11.8-14.3 % Platelet Count 252 140-450 10^3/uL Mean Platelet Volume 8.6 6.9-10.8 fL Neutrophils (%) (Auto) 75.5 37.0-80.0 % Lymphocytes (%) (Auto) 11.9 10.0-50.0 % Monocytes (%) (Auto) 11.4 0.0-12.0 % Eosinophils (%) (Auto) 0.5 0.0-7.0 % Basophils (%) (Auto) 0.7 0.0-2.0 % Neutrophils # (Auto) 7.1 1.6-8.6 10 ^3/uL Lymphocytes # (Auto) 1.1 0.4-5.4 10 ^3/uL Monocytes # (Auto) 1.1 0-1.3 10 ^3/uL Eosinophils # (Auto) 0 0-0.8 10 ^3/uL Basophils # (Auto) 0.1 0-0.2 10 ^3/uL Nucleated Red Blood Cells 0.0 % Sodium Level 144 136-145 mmol/L Potassium Level 4.1 3.5-5.1 mmol/L Chloride Level 108 H 98-107 mmol/L Carbon Dioxide Level 26 20-31 mmol/L Anion Gap 10 5-15 Blood Urea Nitrogen 18 9-23 mg/dL Creatinine 0.88 0.550-1.02 mg/dL Glomerular Filtration Rate Calc 66 >90 mL/min BUN/Creatinine Ratio 20.5 H 10.0-20.0 Serum Glucose 109 H 74-106 mg/dL Calcium Level 8.7 8.7-10.4 mg/dL B-Type Natriuretic Peptide 965.56 0-100 pg/mL EXAM: XR Chest, 1 View FINDINGS: LUNGS AND PLEURAL SPACES: See below. HEART: Cardiomegaly with pulmonary congestion and edema. Superimposed pneumonia cannot be excluded. MEDIASTINUM: Unremarkable. Normal mediastinal contour. BONES/JOINTS: Unremarkable. No acute fracture. OTHER FINDINGS: . IMPRESSION: Cardiomegaly with pulmonary congestion and edema. Superimposed pneumonia cannot be excluded. Assessment/Plan Assessment/Plan Assessment: Shortness of breath, Possible pneumonia, CHF exacerbation, Elevated BNP, Hyperlipidemia, Hypertension, Hypothyroidism, Plan: Admit to Med-Surg, Breathing treatments, IV Lasix, Mange/Monitor electrolytes, Supplemental oxygen as needed, Home medications reconciled, Plan discussed with: Patient My Orders Orders - TOÑO BELL Procedure Category Date Status Time Covid19 Antigen Amy LAB 02/13/25 Logged Rapid Influenza A&B LAB 02/13/25 Logged 08:[address] 02/13/25 Resulted 08:49 Angio Head/Neck CT 02/13/25 Resulted 08:49 Admit ADMIT 02/13/25 Transmitted 10:32 Code Status CODE 02/13/25 Transmitted 10:32 2 Gm Sodium Diet DIET 02/13/25 Transmitted Lunch Sodium Chloride Lock PHA 02/13/25 Logged (Saline Lock Ns) 14:00 Hydrocodone-Acet PHA 02/13/25 Logged 5/325mg Tab (Tate 10:45 Ondansetron Hcl PHA 02/13/25 Logged (Zofran) 10:45 Docusate Sodium PHA 02/13/25 Logged Capsule (Colace 10:45 Complete Blood Count LAB 02/14/25 Verified 04:00 Comprehensive LAB 02/14/25 Verified Metabolic Panel 04:00 Condition: Serious VU 02/13/25 In Process 10:32 Acetaminophen Tablet PHA 02/13/25 Logged (Tylenol Tablet) 10:45 Amlodipine Tablet PHA 02/14/25 Logged (Norvasc Tablet) 10:00 Apixaban (Eliquis) PHA 02/13/25 Logged 22:00 Furosemide Tablet PHA 02/14/25 Logged (Lasix Tablet) 10:00 Levothyroxine Tablet PHA 02/14/25 Logged (Synthroid Tablet) 10:00 Metoprolol Tartrate PHA 02/13/25 Logged Tablet (Lopressor Ta 22:00 Pantoprazole Tablet PHA 02/14/25 Logged (Protonix Tablet) 10:00 Sacubitril-Valsartan PHA 02/13/25 Transmitted (Entresto 24-26 Mg 22:00 (Nf) Atorvastatin PHA 02/14/25 Transmitted Calcium 10:00 (Nf) Cyanocobalamin PHA 02/14/25 Transmitted (Vitamin B-12) 10:00 (Nf) Memantine PHA 02/14/25 Transmitted Hydrochloride 10:00 (Nf) Potassium PHA 02/14/25 Transmitted Chloride (Potassium 10:00 Amiodarone Tablet PHA 02/14/25 Transmitted (Cordarone Tablet) 10:00 Date of Service: February 13, 2025 Billing Provider: TOÑO BELL Common Visit Codes: [id number] INP/OBS CARE (MOD) TOÑO BELL February 13, 2025 11:05
[2025-02-13] MEDS: FUROSEMIDE 40 MG/4 ML VIAL IV ONE (11:15)
[2025-02-13] MEDS: ALBUTEROL SULF 2.5 MG/0.5ML(0.5%) NEB SOLN NEB SCH (11:45)
[2025-02-13] MEDS: IPRATROPIUM BROM 0.5 MG/2.5ML INH SOL NEB SCH (11:45)
[2025-02-13 12:36] LABS: COVID19 ANTIGEN SOFIA FIA NEGATIVE (NEGATIVE)
[2025-02-13 12:36] LABS: Rapid Influenza A Negative (Negative); Rapid Influenza B Negative (Negative)
[2025-02-13 13:47] LABS: Urine Bacteria None Seen /hpf (None Seen)
[2025-02-13] MEDS: SODIUM CHLOR 0.9% PF (SALINE LOCK) 10ML VIAL/SYR IV SCH (14:00)
[2025-02-13 14:05] LABS: Urine Blood Negative /uL (Negative); Urine Clarity Clear (Clear); Urine Color Yellow (Yellow); Urine Mucus FEW (None Seen); Urine Protein, UAD TRACE (Negative); Urine Squamous Epithelial Cell FEW /hpf (<5); Urine Urobilinogen 2 mg/dL (Negative); Urine WBC 1 /HPF (0-5)
[2025-02-13 14:07] LABS: Urine Specific Gravity > 1.050 (1.001-1.035)
[2025-02-13] MEDS: METOPROLOL TARTRATE 25 MG TAB PO SCH (21:21)
[2025-02-13] MEDS: SACUBITRIL-VALSARTAN 24mg/26mg TAB PO SCH (21:21)
[2025-02-13] MEDS: APIXABAN 2.5 MG TAB PO SCH (21:22)
[2025-02-13] MEDS: LORazepam 2MG/ML-1ML VIAL IV ONE (22:30)
[2025-02-14] VITALS (12 sets, daily range): BP systolic 113–134; BP diastolic 37–64; PULSE 55–88; RESP 16–20; TEMP 97.1–98.6; O2SAT 92–100
[2025-02-14] MEDS: LORazepam 2MG/ML-1ML VIAL IV ONE (03:12)
[2025-02-14 06:55] LABS: Basophils # (auto) 0.1 10 ^3/uL (0-0.2); Basophils % (auto) 0.6 % (0.0-2.0); Eosinophils # (auto) 0 10 ^3/uL (0-0.8); Lymphocytes # (auto) 1.5 10 ^3/uL (0.4-5.4); Monocytes # (auto) 1.5 10 ^3/uL (0-1.3); Neutrophils % (auto) 78.7 % (37.0-80.0)
[2025-02-14 06:58] LABS: Eosinophils % (auto) 0.2 % (0.0-7.0); Hematocrit 26.2 % (36.0-46.0); Hemoglobin 7.9 g/dL (12.2-16.2); Lymphocytes % (auto) 10.3 % (10.0-50.0); Mean Corpuscular Hemoglobin 23.9 pg (28.0-32.0); Mean Corpuscular Volume 79.7 fL (80.0-100.0); Monocytes % (auto) 10.2 % (0.0-12.0); Neutrophils # (auto) 11.5 10 ^3/uL (1.6-8.6); Platelet Count (auto) 247 10^3/uL (140-450); Red Blood Cells 3.29 10^6/uL (4.0-5.20); Red Cell Distribution Width 18.4 % (11.8-14.3); White Blood Cell 14.6 10^3/uL (4.4-10.8)
[2025-02-14 07:08] LABS: Albumin 4.1 g/dL (3.2-4.8); Alkaline Phosphatase 113 U/L (46-116); Anion Gap 10 (5-15); BUN/Creatinine Ratio 13.3 (10.0-20.0); Bilirubin, Total 0.6 mg/dL (0.2-1.0); Blood Urea Nitrogen 12 mg/dL (9-23); Calcium 9.5 mg/dL (8.7-10.4); Carbon Dioxide 23 mmol/L (20-31); Potassium 4.3 mmol/L (3.5-5.1); Sodium 140 mmol/L (136-145); Total Protein 6.5 g/dL (5.7-8.2)
[2025-02-14 07:10] LABS: Alanine Aminotransferase 47 U/L (7-40); Aspartate Aminotransferase 73 U/L (13-40); Chloride 107 mmol/L (98-107); Glucose 122 mg/dL (74-106)
[2025-02-14] MEDS: HALOPERIDOL LACTATE 5 MG/ML INJ VIAL ONE (07:26)
[2025-02-14] MEDS: HALOPERIDOL LACTATE 5 MG/ML INJ VIAL IM ONE (07:26)
[2025-02-14] MEDS: diphenhdrAMINE HCL 50 MG/1 ML VL IM ONE (07:58)
[2025-02-14] MEDS: diphenhdrAMINE HCL 50 MG/1 ML VL ONE (09:31)
[2025-02-14] MEDS: FUROSEMIDE 40 MG/4 ML VIAL IV SCH (09:34)
[2025-02-14] MEDS ORDERED: POTASSIUM CHL 20 Meq TABLET PO SCH (10:00)
[2025-02-14] MEDS ORDERED: FUROSEMIDE 40 MG TAB PO SCH (10:00)
[2025-02-14] MEDS: ATORVASTATIN 20 MG TAB PO SCH (14:05)
[2025-02-14] MEDS: AMIODARONE HCL 200 MG TAB PO SCH (14:05)
[2025-02-14] MEDS: amLODIPine BESYLATE 5 MG TAB PO SCH (14:05)
[2025-02-14] MEDS: LEVOTHYROXINE SODIUM 25 MCG TAB PO SCH (14:05)
[2025-02-14] MEDS: CYANOCOBALAMIN 500 MCG TAB PO SCH (14:05)
[2025-02-14] MEDS: MEMANTINE HCL 5 MG TAB PO SCH (14:10)
[2025-02-14] MEDS: PANTOPRAZOLE 40 MG TAB PO SCH (14:10)
[2025-02-14] MEDS: POTASSIUM CHL 10 Meq TABLET PO SCH (14:10)
[2025-02-14] MEDS: diphenhdrAMINE HCL 50 MG/1 ML VL IV ONE (14:14)
[2025-02-14] MEDS ORDERED: DONE1TAB88 PO (15:52)
--- NOTE | 2025-02-14 18:22 | DVHPN2 ---
Subjective Seen and examined at bedside, on 4L nasal cannula oxygen. I spoke with Anne-Marie (DTR) explained symptoms are likely due to Aortic Stenosis. Patient follows with Dr. Jake Hunter. Changes from previous H/P or p: No Changes Eyes: No Pain, No Vision change, No Conjunctivae inflammation, No Eyelid inflammation, No Other, No Redness ENT: No Ear pain, No Ear discharge, No Nose pain, No Nose discharge, No Nose congestion, No Mouth pain, No Mouth swelling, No Throat pain, No Throat swelling, No Other Cardiovascular: No Chest Pain, No Palpitations, No Orthopnea, No Paroxysmal Noc. Dyspnea, No Edema, No Lt Headedness, No Other Respiratory: No Cough, No Dry; Shortness of breath, SOB with excertion; No Wheezing, No Hemoptysis, No Pleuritic Pain, No Sputum, No Other Gastrointestinal: No Nausea, No Vomiting, No Abdominal Pain, No Diarrhea, No Constipation, No Melena, No Hematochezia, No Other Genitourinary: No Dysuria, No Frequency, No Incontinence, No Hematuria, No Retention, No Other Musculoskeletal: No other, No neck pain, No shoulder pain, No arm pain, No back pain, No hand pain, No leg pain, No foot pain Skin: No Rash, No Lesions, No Jaundice, No Bruising, No Other Objective Vitals Vital Signs Date Time Temp Pulse Resp B/P (MAP) Pulse Ox O2 Delivery O2 Flow Rate FiO2 02/14/25 17:02 98.6 65 18 132/64 (86) 98 98.6 02/14/25 15:08 Nasal Cannula* 4 36 General Appearance: Alert, Other (Confused) HEENT: Atraumatic Lungs: Other (Creps) Cardiovascular: Regular rate, Normal S1, Normal S2 Abdomen: Normal bowel sounds, Soft Psych/Mental Status: Other (Confused) Medications Current Medications Medications Dose Ordered Sig/Urusla Route Start Time Stop Time Status Last Admin Dose Admin Sodium Chloride 10 ml Q8HR IV 02/13/25 14:00 02/14/25 14:15 10 ML Acetaminophen/ Hydrocodone Bitart 1 tab Q4HP PRN PO 02/13/25 10:45 Hold Ondansetron HCl 4 mg Q4HP PRN IV 02/13/25 10:45 Docusate Sodium 100 mg BIDPRN PRN PO 02/13/25 10:45 Acetaminophen 650 mg Q6HP PRN PO 02/13/25 10:45 Amlodipine Besylate 5 mg DAILY PO 02/14/25 10:00 02/14/25 14:05 5 MG Apixaban 2.5 mg BID PO 02/13/25 22:00 02/14/25 14:05 2.5 MG Levothyroxine Sodium 25 mcg DAILY PO 02/14/25 10:00 02/14/25 14:05 25 MCG Metoprolol Tartrate 25 mg BID PO 02/13/25 22:00 02/14/25 14:10 25 MG Pantoprazole Sodium 40 mg DAILY PO 02/14/25 10:00 02/14/25 14:10 40 MG Sacubitril/ Valsartan 1 tab BID PO 02/13/25 22:00 02/14/25 14:14 1 TAB Atorvastatin Calcium 40 mg DAILY PO 02/14/25 10:00 02/14/25 14:05 40 MG Cyanocobalamin 1,000 mcg DAILY PO 02/14/25 10:00 02/14/25 14:05 1,000 MCG Memantine 10 mg DAILY PO 02/14/25 10:00 02/14/25 14:10 10 MG Amiodarone HCl 200 mg DAILY PO 02/14/25 10:00 02/14/25 14:05 200 MG Albuterol 2.5 mg Q6HWA [place] 02/13/25 12:00 02/14/25 12:09 2.5 MG Ipratropium [place] 0.5 mg Q6HWA [place] 02/13/25 12:00 02/14/25 12:09 0.5 MG Furosemide 40 mg DAILY IV 02/14/25 10:00 02/14/25 09:34 40 MG Potassium Chloride 10 meq DAILY PO 02/14/25 10:00 02/14/25 14:10 10 MEQ Laboratory Results Laboratory Tests 02/14/25 06:36 Chemistry Test 02/14/25 06:36 Albumin 4.1 g/dL (3.2-4.8) Calcium Level 9.5 mg/dL (8.7-10.4) Total Protein 6.5 g/dL (5.7-8.2) LFT Test 02/14/25 06:36 Alanine Aminotransferase (ALT) 47 U/L (7-40) H Alkaline Phosphatase 113 U/L (46-116) Aspartate Amino Transferase (AST) 73 U/L (13-40) H Total Bilirubin 0.6 mg/dL (0.2-1.0) Urinalysis Test 02/13/25 13:24 Urine Color Yellow (Yellow) Urine Clarity Clear (Clear) Urine pH 6.0 (5.0-9.0) Urine Specific [place] > 1.050 (1.001-1.035) Urine Protein Trace (Negative) H Urine Ketones Negative (Negative) Urine Blood Negative /uL (Negative) Urine Nitrite Negative (Negative) Urine Bilirubin Negative (Negative) Urine Urobilinogen 2 mg/dL (Negative) H Urine Leukocyte Esterase Negative /uL (Negative) Urine RBC 1 /hpf (0 - 4) Urine Microscopic WBC 1 /HPF (0-5) Urine Squamous Epithelial Cells Few /hpf (<5) Urine Bacteria None seen /hpf (None Seen) Urine Mucus Few (None Seen) Urine Glucose Normal mg/dL (Normal) Assessment/Plan Assessment/Plan # Acute Diastolic CHF - Lasix # Severe Aortic Stenosis - Outpatient eval for TAVR? # Possible Gram NEG/POS PNA - Doxy PO # Vascular Dementia # Acute Resp Failure - Titrate oxygen down # Goals of care discussion with ANNE-MARIE >18 mins FULL CODE Plan discussed with: Patient, Daughter Date of Service: February 14, 2025 Billing Provider: FELIX DE ANDA MD Common Visit Codes: [id number] INP/OBS CARE(HIGH) Secondary Visit Codes: [id number] CARE PLAN 30 MINUTES FELIX DE ANDA MD February 14, 2025 18:22
[2025-02-14] MEDS: DOXYCYCLINE 100 MG TAB/CAP PO SCH (22:04)
[2025-02-15] VITALS (13 sets, daily range): BP systolic 108–138; BP diastolic 47–68; PULSE 53–66; RESP 16–19; TEMP 97.3–98.6; O2SAT 96–100
[2025-02-15 07:29] LABS: Basophils # (auto) 0.1 10 ^3/uL (0-0.2); Eosinophils # (auto) 0.1 10 ^3/uL (0-0.8); Hemoglobin 7.4 g/dL (12.2-16.2); Lymphocytes # (auto) 1.3 10 ^3/uL (0.4-5.4); Monocytes # (auto) 1.1 10 ^3/uL (0-1.3)
[2025-02-15 07:32] LABS: Eosinophils % (auto) 1.4 % (0.0-7.0); Hematocrit 24.2 % (36.0-46.0); Lymphocytes % (auto) 14.8 % (10.0-50.0); Mean Corpuscular Hgb Conc. 30.6 g/dL (32.0-36.0); Mean Corpuscular Volume 78.5 fL (80.0-100.0); Monocytes % (auto) 12.2 % (0.0-12.0); Neutrophils # (auto) 6.4 10 ^3/uL (1.6-8.6); Neutrophils % (auto) 70.6 % (37.0-80.0); Platelet Count (auto) 242 10^3/uL (140-450); Red Blood Cells 3.08 10^6/uL (4.0-5.20); Red Cell Distribution Width 18.6 % (11.8-14.3)
[2025-02-15 07:36] LABS: Chloride 104 mmol/L (98-107); Potassium 3.9 mmol/L (3.5-5.1); Sodium 140 mmol/L (136-145)
[2025-02-15 07:37] LABS: Anion Gap 7 (5-15); Carbon Dioxide 29 mmol/L (20-31)
[2025-02-15 07:38] LABS: Calcium 9.2 mg/dL (8.7-10.4)
[2025-02-15 07:42] LABS: Glucose 87 mg/dL (74-106)
[2025-02-15 07:43] LABS: BUN/Creatinine Ratio 15.1 (10.0-20.0); Blood Urea Nitrogen 13 mg/dL (9-23); Magnesium 2.2 mg/dL (1.6-2.6)
[2025-02-15] MEDS: FUROSEMIDE 40 MG/4 ML VIAL IV SCH (10:03)
--- NOTE | 2025-02-15 14:26 | DVH ---
CT CHEST WITHOUT CONTRAST INDICATION: pna EXAM DATE: 02/15/2025 11:53 AM COMPARISON: CT CHST AB PEL WO CON-NO IV/ORAL on DOS: 04/15/23 RADIATION DOSE: CTDIvol: 19.25 mGy, DLP: 615.29 mGy*cm PROCEDURE: Helical CT images were obtained of the chest without intravenous contrast. Sagittal and c oronal reconstructions are provided. ADDITIONAL IMAGES / REFORMATS: None All CT scans at this medical facility are performed using dose modulation techniques as appropriate t o a performed exam including the following: Automated exposure control was utilized; adjustment of th e MA and/or KV according to patient size; and use of iterative reconstruction technique. FINDINGS: Bones: Scattered degenerative changes are noted. Visualized Abdomen: Normal. Chest Wall: Normal. Soft tissues: Normal. Mediastinum: Normal. Heart: Coronary artery calcifications are noted. A prosthetic aortic valve is seen. Vessels: Normal. Lymph Nodes: Normal. Pleura: Small bilateral pleural effusions. Airways: Normal. Lung: Bibasilar atelectasis. Other: None IMPRESSION: Bibasilar atelectasis and mild bilateral pleural effusions.
--- NOTE | 2025-02-15 14:42 | DVHPN2 ---
Subjective Seen and examined at bedside, reviewed CT Chest. Cont present tx. Will get Anemia panel. Changes from previous H/P or p: No Changes Eyes: No Pain, No Vision change, No Conjunctivae inflammation, No Eyelid inflammation, No Other, No Redness ENT: No Ear pain, No Ear discharge, No Nose pain, No Nose discharge, No Nose congestion, No Mouth pain, No Mouth swelling, No Throat pain, No Throat swelling, No Other Cardiovascular: No Chest Pain, No Palpitations, No Orthopnea, No Paroxysmal Noc. Dyspnea, No Edema, No Lt Headedness, No Other Respiratory: No Cough, No Dry; Shortness of breath, SOB with excertion; No Wheezing, No Hemoptysis, No Pleuritic Pain, No Sputum, No Other Gastrointestinal: No Nausea, No Vomiting, No Abdominal Pain, No Diarrhea, No Constipation, No Melena, No Hematochezia, No Other Genitourinary: No Dysuria, No Frequency, No Incontinence, No Hematuria, No Retention, No Other Musculoskeletal: No other, No neck pain, No shoulder pain, No arm pain, No back pain, No hand pain, No leg pain, No foot pain Skin: No Rash, No Lesions, No Jaundice, No Bruising, No Other Objective Vitals Vital Signs Date Time Temp Pulse Resp B/P (MAP) Pulse Ox O2 Delivery O2 Flow Rate FiO2 02/15/25 13:00 97.6 60 16 132/68 (89) 97 97.6 02/15/25 11:42 Nasal Cannula* 2 28 Intake/Output Intake and Output 02/15/25 07:00 Intake Total 930 ml Output Total 550 ml Balance 380 ml Intake Oral 930 ml Output Urine Total 550 ml # Bowel Movements 1 General Appearance: Alert, Other (Confused) HEENT: Atraumatic Lungs: Other (Creps) Cardiovascular: Regular rate, Normal S1, Normal S2 Abdomen: Normal bowel sounds, Soft Psych/Mental Status: Other (Confused) Medications Current Medications Medications Dose Ordered Sig/Ursula Route Start Time Stop Time Status Last Admin Dose Admin Sodium Chloride 10 ml Q8HR IV 02/13/25 14:00 02/15/25 10:00 10 ML Acetaminophen/ Hydrocodone Bitart 1 tab Q4HP PRN PO 02/13/25 10:45 Hold Ondansetron HCl 4 mg Q4HP PRN IV 02/13/25 10:45 Docusate Sodium 100 mg BIDPRN PRN PO 02/13/25 10:45 Acetaminophen 650 mg Q6HP PRN PO 02/13/25 10:45 Amlodipine Besylate 5 mg DAILY PO 02/14/25 10:00 02/15/25 10:02 5 MG Apixaban 2.5 mg BID PO 02/13/25 22:00 02/15/25 09:55 2.5 MG Levothyroxine Sodium 25 mcg DAILY PO 02/14/25 10:00 02/15/25 10:02 25 MCG Metoprolol Tartrate 25 mg BID PO 02/13/25 22:00 02/14/25 22:00 25 MG Pantoprazole Sodium 40 mg DAILY PO 02/14/25 10:00 02/15/25 10:02 40 MG Sacubitril/ Valsartan 1 tab BID PO 02/13/25 22:00 02/15/25 10:01 1 TAB Atorvastatin Calcium 40 mg DAILY PO 02/14/25 10:00 02/15/25 10:01 40 MG Cyanocobalamin 1,000 mcg DAILY PO 02/14/25 10:00 02/15/25 10:02 1,000 MCG Memantine 10 mg DAILY PO 02/14/25 10:00 02/15/25 10:01 10 MG Amiodarone HCl 200 mg DAILY PO 02/14/25 10:00 02/15/25 10:01 200 MG Albuterol 2.5 mg Q6HWA [facility] 02/13/25 12:00 02/15/25 11:42 2.5 MG Ipratropium [place] 0.5 mg Q6HWA [facility] 02/13/25 12:00 02/15/25 11:42 0.5 MG Potassium Chloride 10 meq DAILY PO 02/14/25 10:00 02/15/25 09:56 10 MEQ Furosemide 40 mg DAILY IV 02/15/25 10:00 02/15/25 10:03 40 MG Doxycycline Monohydrate 100 mg Q12HR PO 02/14/25 22:00 02/15/25 10:02 100 MG Laboratory Results Laboratory Tests 02/15/25 05:33 Chemistry Test 02/15/25 05:33 Calcium Level 9.2 mg/dL (8.7-10.4) Magnesium Level 2.2 mg/dL (1.6-2.6) Urinalysis Test 02/13/25 13:24 Urine Color Yellow (Yellow) Urine Clarity Clear (Clear) Urine pH 6.0 (5.0-9.0) Urine Specific [place] > 1.050 (1.001-1.035) Urine Protein Trace (Negative) H Urine Ketones Negative (Negative) Urine Blood Negative /uL (Negative) Urine Nitrite Negative (Negative) Urine Bilirubin Negative (Negative) Urine Urobilinogen 2 mg/dL (Negative) H Urine Leukocyte Esterase Negative /uL (Negative) Urine RBC 1 /hpf (0 - 4) Urine Microscopic WBC 1 /HPF (0-5) Urine Squamous Epithelial Cells Few /hpf (<5) Urine Bacteria None seen /hpf (None Seen) Urine Mucus Few (None Seen) Urine Glucose Normal mg/dL (Normal) Assessment/Plan Assessment/Plan # Acute Diastolic CHF - Lasix # Severe Aortic Stenosis - Outpatient eval for TAVR? # Possible Gram NEG/POS PNA - Doxy PO # Vascular Dementia # Acute Resp Failure - Titrate oxygen down # Goals of care discussion with ALANA >18 mins FULL CODE Plan discussed with: Patient My Orders Orders - FELIX DE ANDA MD Procedure Category Date Status Time Furosemide Injection PHA 02/15/25 In Process (Lasix Injection) 10:00 Doxycycline Tablet PHA 02/14/25 In Process (Vibramycin Tablet) 22:[address] 02/15/25 Resulted 10:13 Comprehensive LAB 02/16/25 Verified Metabolic Panel 04:00 Complete Blood Count LAB 02/16/25 Verified 04:00 Magnesium LAB 02/16/25 Verified 04:00 B-Type Natriuretic LAB 02/16/25 Verified Peptide 04:00 Iron Panel LAB 02/15/25 Transmitted 14:38 Reticulocyte Count LAB 02/15/25 Transmitted 14:38 Lactate Dehydrogenase LAB 02/15/25 Transmitted 14:38 Ferritin LAB 02/15/25 Transmitted 14:38 Stool Occult Blood LAB 02/15/25 Transmitted 14:38 Lactulose Oral PHA 02/15/25 Transmitted 14:45 Polyethylene Glycol PHA 02/15/25 Transmitted 17g Powder (Miralax 14:45 Date of Service: February 15, 2025 Billing Provider: FELIX DE ANDA MD Common Visit Codes: [id number] INP/OBS CARE(HIGH) FELIX DE ANDA MD February 15, 2025 14:42
[2025-02-15] MEDS: LACTULOSE 20Gm/30ML SOLN PO ONE (15:04)
[2025-02-15] MEDS: POLYETHYLENE GLYCOL 17 GM PWDR PO ONE (15:04)
[2025-02-15 15:26] LABS: % Iron Saturation 6.6 % (15-50)
[2025-02-15] MEDS: IRON SUCROSE COMPLEX 110 ML IV SCH (17:29)
[2025-02-16] VITALS (13 sets, daily range): BP systolic 117–145; BP diastolic 56–64; PULSE 61–73; RESP 16–18; TEMP 97.7–98.4; O2SAT 96–100
[2025-02-16 07:22] LABS: Basophils # (auto) 0.1 10 ^3/uL (0-0.2); Basophils % (auto) 0.6 % (0.0-2.0); Eosinophils # (auto) 0.1 10 ^3/uL (0-0.8); Eosinophils % (auto) 0.8 % (0.0-7.0); Hematocrit 23.9 % (36.0-46.0); Hemoglobin 7.4 g/dL (12.2-16.2); Lymphocytes # (auto) 1.3 10 ^3/uL (0.4-5.4); Lymphocytes % (auto) 11.7 % (10.0-50.0); Mean Corpuscular Hemoglobin 23.8 pg (28.0-32.0); Mean Corpuscular Hgb Conc. 31.1 g/dL (32.0-36.0); Mean Corpuscular Volume 76.7 fL (80.0-100.0); Monocytes # (auto) 1.3 10 ^3/uL (0-1.3); Monocytes % (auto) 11.4 % (0.0-12.0); Neutrophils # (auto) 8.6 10 ^3/uL (1.6-8.6); Neutrophils % (auto) 75.5 % (37.0-80.0); Platelet Count (auto) 249 10^3/uL (140-450); Red Blood Cells 3.12 10^6/uL (4.0-5.20); Red Cell Distribution Width 18.5 % (11.8-14.3); White Blood Cell 11.4 10^3/uL (4.4-10.8)
[2025-02-16 07:26] LABS: Albumin 3.7 g/dL (3.2-4.8); Alkaline Phosphatase 97 U/L (46-116); Anion Gap 7 (5-15); BUN/Creatinine Ratio 20.2 (10.0-20.0); Blood Urea Nitrogen 17 mg/dL (9-23); Carbon Dioxide 30 mmol/L (20-31); Chloride 102 mmol/L (98-107); Glucose 96 mg/dL (74-106); Magnesium 2.2 mg/dL (1.6-2.6); Sodium 139 mmol/L (136-145); Total Protein 5.8 g/dL (5.7-8.2)
[2025-02-16 07:27] LABS: Bilirubin, Total 0.5 mg/dL (0.2-1.0)
[2025-02-16 07:31] LABS: Alanine Aminotransferase 42 U/L (7-40); Aspartate Aminotransferase 71 U/L (13-40); Calcium 8.5 mg/dL (8.7-10.4)
--- NOTE | 2025-02-16 12:05 | DVHPN2 ---
Subjective Seen and examined at bedside, Soy MATOS at bedside. 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 Will add Metalozone. Changes from previous H/P or p: No Changes Eyes: No Pain, No Vision change, No Conjunctivae inflammation, No Eyelid inflammation, No Other, No Redness ENT: No Ear pain, No Ear discharge, No Nose pain, No Nose discharge, No Nose congestion, No Mouth pain, No Mouth swelling, No Throat pain, No Throat swelling, No Other Cardiovascular: No Chest Pain, No Palpitations, No Orthopnea, No Paroxysmal Noc. Dyspnea, No Edema, No Lt Headedness, No Other Respiratory: No Cough, No Dry; Shortness of breath, SOB with excertion; No Wheezing, No Hemoptysis, No Pleuritic Pain, No Sputum, No Other Gastrointestinal: No Nausea, No Vomiting, No Abdominal Pain, No Diarrhea, No Constipation, No Melena, No Hematochezia, No Other Genitourinary: No Dysuria, No Frequency, No Incontinence, No Hematuria, No Retention, No Other Musculoskeletal: No other, No neck pain, No shoulder pain, No arm pain, No back pain, No hand pain, No leg pain, No foot pain Skin: No Rash, No Lesions, No Jaundice, No Bruising, No Other Objective Vitals Vital Signs Date Time Temp Pulse Resp B/P (MAP) Pulse Ox O2 Delivery O2 Flow Rate FiO2 02/16/25 11:34 67 16 100 02/16/25 11:28 Nasal Cannula* 3 32 02/16/25 10:27 122/57 02/16/25 09:00 97.9 97.9 Intake/Output Intake and Output 02/16/25 07:00 Intake Total 870 ml Output Total 1225 ml Balance -355 ml Intake Oral 870 ml Output Urine Total 1225 ml General Appearance: Alert, Other (Confused) HEENT: Atraumatic Lungs: Other (Creps) Cardiovascular: Regular rate, Normal S1, Normal S2 Abdomen: Normal bowel sounds, Soft Psych/Mental Status: Other (Confused) Medications Current Medications Medications Dose Ordered Sig/Ursula Route Start Time Stop Time Status Last Admin Dose Admin Sodium Chloride 10 ml Q8HR IV 02/13/25 14:00 02/16/25 05:29 10 ML Acetaminophen/ Hydrocodone Bitart 1 tab Q4HP PRN PO 02/13/25 10:45 Hold Ondansetron HCl 4 mg Q4HP PRN IV 02/13/25 10:45 Docusate Sodium 100 mg BIDPRN PRN PO 02/13/25 10:45 Acetaminophen 650 mg Q6HP PRN PO 02/13/25 10:45 Amlodipine Besylate 5 mg DAILY PO 02/14/25 10:00 02/16/25 10:25 5 MG Apixaban 2.5 mg BID PO 02/13/25 22:00 02/16/25 10:24 2.5 MG Levothyroxine Sodium 25 mcg DAILY PO 02/14/25 10:00 02/16/25 10:25 25 MCG Metoprolol Tartrate 25 mg BID PO 02/13/25 22:00 02/16/25 10:25 25 MG Pantoprazole Sodium 40 mg DAILY PO 02/14/25 10:00 02/16/25 10:24 40 MG Sacubitril/ Valsartan 1 tab BID PO 02/13/25 22:00 02/16/25 10:23 1 TAB Atorvastatin Calcium 40 mg DAILY PO 02/14/25 10:00 02/16/25 10:24 40 MG Cyanocobalamin 1,000 mcg DAILY PO 02/14/25 10:00 02/16/25 10:24 1,000 MCG Memantine 10 mg DAILY PO 02/14/25 10:00 02/16/25 10:24 10 MG Amiodarone HCl 200 mg DAILY PO 02/14/25 10:00 02/16/25 10:25 200 MG Albuterol 2.5 mg Q6HWA NEB 02/13/25 12:00 02/16/25 11:28 2.5 MG Ipratropium [place] 0.5 mg Q6HWA NEB 02/13/25 12:00 02/16/25 11:28 0.5 MG Potassium Chloride 10 meq DAILY PO 02/14/25 10:00 02/16/25 10:23 10 MEQ Furosemide 40 mg DAILY IV 02/15/25 10:00 02/16/25 10:27 40 MG Doxycycline Monohydrate 100 mg Q12HR PO 02/14/25 22:00 02/16/25 10:24 100 MG Iron Sucrose 110 ml @ 110 mls/hr DAILY@1200 IV 02/15/25 16:45 02/19/25 12:59 02/16/25 11:59 110 MLS/HR Laboratory Results Laboratory Tests 02/16/25 06:12 Chemistry Test 02/16/25 06:12 Albumin 3.7 g/dL (3.2-4.8) Calcium Level 8.5 mg/dL (8.7-10.4) L Magnesium Level 2.2 mg/dL (1.6-2.6) Total Protein 5.8 g/dL (5.7-8.2) Cardiac Markers Test 02/16/25 06:12 B-Type Natriuretic Peptide 408.90 pg/mL (0-100) LFT Test 02/16/25 06:12 Alanine Aminotransferase (ALT) 42 U/L (7-40) H Alkaline Phosphatase 97 U/L (46-116) Aspartate Amino Transferase (AST) 71 U/L (13-40) H Total Bilirubin 0.5 mg/dL (0.2-1.0) Urinalysis Test 02/13/25 13:24 Urine Color Yellow (Yellow) Urine Clarity Clear (Clear) Urine pH 6.0 (5.0-9.0) Urine Specific [place] > 1.050 (1.001-1.035) Urine Protein Trace (Negative) H Urine Ketones Negative (Negative) Urine Blood Negative /uL (Negative) Urine Nitrite Negative (Negative) Urine Bilirubin Negative (Negative) Urine Urobilinogen 2 mg/dL (Negative) H Urine Leukocyte Esterase Negative /uL (Negative) Urine RBC 1 /hpf (0 - 4) Urine Microscopic WBC 1 /HPF (0-5) Urine Squamous Epithelial Cells Few /hpf (<5) Urine Bacteria None seen /hpf (None Seen) Urine Mucus Few (None Seen) Urine Glucose Normal mg/dL (Normal) Assessment/Plan Assessment/Plan # Acute Diastolic CHF - Lasix with Metolazone # Aortic Stenosis - s/p Bioprosthetic valve in 2020 - DENISE was done May 2024 # Possible Gram NEG/POS PNA - Doxy PO # Vascular Dementia # Acute Resp Failure - Titrate oxygen down # Goals of care discussion with ALANA >18 mins FULL CODE Plan discussed with: Patient My Orders Orders - FELIX DE ANDA MD Procedure Category Date Status Time Stool Occult Blood LAB 02/15/25 Logged 14:38 Iron Sucrose Complex PHA 02/15/25 In Process (Venofer) 16:45 Communication Order ORDERS 02/15/25 Transmitted 22:08 Communication Order ORDERS 02/15/25 Transmitted 22:19 Metolazone (Zaroxolyn) PHA 02/17/25 Verified 10:00 Metolazone (Zaroxolyn) PHA 02/16/25 Verified 12:00 Furosemide Injection PHA 02/16/25 Verified (Lasix Injection) 13:30 Date of Service: February 16, 2025 Billing Provider: FELIX DE ANDA MD Common Visit Codes: [id number] INP/OBS CARE(HIGH) FELIX DE ANDA MD February 16, 2025 12:05
[2025-02-16] MEDS: metOLazone 5 MG TAB PO ONE (13:17)
[2025-02-16] MEDS: FUROSEMIDE 20 MG/2 ML VIAL IV ONE (13:18)
[2025-02-16] MEDS: LACTULOSE 20Gm/30ML SOLN PO ONE (20:44)
[2025-02-16] MEDS: BISACODYL 5 MG EC TAB PO ONE (20:44)
[2025-02-17] VITALS (10 sets, daily range): BP systolic 107–134; BP diastolic 55–75; PULSE 60–75; RESP 16–18; TEMP 97.7–97.9; O2SAT 92–100
[2025-02-17] MEDS: metOLazone 5 MG TAB PO SCH (08:36)
[2025-02-17] MEDS ORDERED: metOLazone 5 MG TAB PO SCH (10:00)
--- NOTE | 2025-02-17 12:02 | DVHPN2 ---
Subjective Seen and examined at bedside, still on 1Liter oxygen. Out of bed to chair. Changes from previous H/P or p: No Changes Eyes: No Pain, No Vision change, No Conjunctivae inflammation, No Eyelid inflammation, No Other, No Redness ENT: No Ear pain, No Ear discharge, No Nose pain, No Nose discharge, No Nose congestion, No Mouth pain, No Mouth swelling, No Throat pain, No Throat swelling, No Other Cardiovascular: No Chest Pain, No Palpitations, No Orthopnea, No Paroxysmal Noc. Dyspnea, No Edema, No Lt Headedness, No Other Respiratory: No Cough, No Dry; Shortness of breath, SOB with excertion; No Wheezing, No Hemoptysis, No Pleuritic Pain, No Sputum, No Other Gastrointestinal: No Nausea, No Vomiting, No Abdominal Pain, No Diarrhea, No Constipation, No Melena, No Hematochezia, No Other Genitourinary: No Dysuria, No Frequency, No Incontinence, No Hematuria, No Retention, No Other Musculoskeletal: No other, No neck pain, No shoulder pain, No arm pain, No back pain, No hand pain, No leg pain, No foot pain Skin: No Rash, No Lesions, No Jaundice, No Bruising, No Other Objective Vitals Vital Signs Date Time Temp Pulse Resp B/P (MAP) Pulse Ox O2 Delivery O2 Flow Rate FiO2 02/17/25 11:49 70 16 100 02/17/25 11:43 Room Air 02/17/25 11:43 0 21 02/17/25 09:00 97.9 130/75 (93) 97.9 Intake/Output Intake and Output 02/17/25 07:00 Intake Total 950 ml Output Total 2325 ml Balance -1375 ml Intake Oral 840 ml IV Total 110 ml Output Urine Total 2325 ml # Bowel Movements 1 General Appearance: Alert, Other (Confused) HEENT: Atraumatic Lungs: Other (Creps) Cardiovascular: Regular rate, Normal S1, Normal S2 Abdomen: Normal bowel sounds, Soft Psych/Mental Status: Other (Confused) Medications Current Medications Medications Dose Ordered Sig/Ursula Route Start Time Stop Time Status Last Admin Dose Admin Sodium Chloride 10 ml Q8HR IV 02/13/25 14:00 02/17/25 05:48 10 ML Acetaminophen/ Hydrocodone Bitart 1 tab Q4HP PRN PO 02/13/25 10:45 Hold Ondansetron HCl 4 mg Q4HP PRN IV 02/13/25 10:45 Docusate Sodium 100 mg BIDPRN PRN PO 02/13/25 10:45 Acetaminophen 650 mg Q6HP PRN PO 02/13/25 10:45 Amlodipine Besylate 5 mg DAILY PO 02/14/25 10:00 02/16/25 10:25 5 MG Apixaban 2.5 mg BID PO 02/13/25 22:00 02/16/25 20:52 2.5 MG Levothyroxine Sodium 25 mcg DAILY PO 02/14/25 10:00 02/16/25 10:25 25 MCG Metoprolol Tartrate 25 mg BID PO 02/13/25 22:00 02/16/25 10:25 25 MG Pantoprazole Sodium 40 mg DAILY PO 02/14/25 10:00 02/16/25 10:24 40 MG Sacubitril/ Valsartan 1 tab BID PO 02/13/25 22:00 02/16/25 20:52 1 TAB Atorvastatin Calcium 40 mg DAILY PO 02/14/25 10:00 02/16/25 10:24 40 MG Cyanocobalamin 1,000 mcg DAILY PO 02/14/25 10:00 02/16/25 10:24 1,000 MCG Memantine 10 mg DAILY PO 02/14/25 10:00 02/16/25 10:24 10 MG Amiodarone HCl 200 mg DAILY PO 02/14/25 10:00 02/16/25 10:25 200 MG Albuterol 2.5 mg Q6HWA [facility] 02/13/25 12:00 02/17/25 11:43 2.5 MG Ipratropium [place] 0.5 mg Q6HWA [facility] 02/13/25 12:00 02/17/25 11:43 0.5 MG Potassium Chloride 10 meq DAILY PO 02/14/25 10:00 02/16/25 10:23 10 MEQ Furosemide 40 mg DAILY IV 02/15/25 10:00 02/16/25 10:27 40 MG Doxycycline Monohydrate 100 mg Q12HR PO 02/14/25 22:00 02/16/25 20:44 100 MG Iron Sucrose 110 ml @ 110 mls/hr DAILY@1200 IV 02/15/25 16:45 02/19/25 12:59 02/16/25 11:59 110 MLS/HR Metolazone 5 mg DAILY PO 02/17/25 08:30 02/17/25 08:36 5 MG Laboratory Results Laboratory Tests 02/16/25 06:12 Urinalysis Test 02/13/25 13:24 Urine Color Yellow (Yellow) Urine Clarity Clear (Clear) Urine pH 6.0 (5.0-9.0) Urine Specific [place] > 1.050 (1.001-1.035) Urine Protein Trace (Negative) H Urine Ketones Negative (Negative) Urine Blood Negative /uL (Negative) Urine Nitrite Negative (Negative) Urine Bilirubin Negative (Negative) Urine Urobilinogen 2 mg/dL (Negative) H Urine Leukocyte Esterase Negative /uL (Negative) Urine RBC 1 /hpf (0 - 4) Urine Microscopic WBC 1 /HPF (0-5) Urine Squamous Epithelial Cells Few /hpf (<5) Urine Bacteria None seen /hpf (None Seen) Urine Mucus Few (None Seen) Urine Glucose Normal mg/dL (Normal) Assessment/Plan Assessment/Plan # Acute Diastolic CHF - Lasix with Metolazone # Aortic Stenosis - s/p Bioprosthetic valve in 2020 - DENISE was done May 2024 # Hemolytic Anemia - Monitor H&H # Possible Gram NEG/POS PNA - Doxy PO # Vascular Dementia # Acute Resp Failure - Titrate oxygen down # Transaminitis - Monitor LFT, may need to stop Amio # Goals of care discussion with ALANA >18 mins FULL CODE Plan discussed with: Patient My Orders Orders - FELIX DE ANDA MD Procedure Category Date Status Time Metolazone (Zaroxolyn) PHA 02/17/25 In Process 08:30 Date of Service: February 17, 2025 Billing Provider: FELIX DE ANDA MD Common Visit Codes: [id number] INP/OBS CARE(HIGH) FELIX DE ANDA MD February 17, 2025 12:01
[2025-02-18 01:00] VITALS: BP 127/65; PULSE 61; RESP 18; TEMP 97.8; O2SAT 95
[2025-02-18] MEDS: MELATONIN 5 MG TAB PO ONE (02:46)
[2025-02-18 05:00] VITALS: BP 118/56; PULSE 61; RESP 18; TEMP 97.9; O2SAT 96
[2025-02-18 09:00] VITALS: BP 116/42; PULSE 57; RESP 12; TEMP 98.4; O2SAT 99
[2025-02-18] MEDS ORDERED: FERR1TAB36 PO (09:38)
[2025-02-18] MEDS ORDERED: METO5TAB5 PO (09:38)
[2025-02-18] MEDS ORDERED: DOX100T PO (09:39)
--- NOTE | 2025-02-18 09:42 | DVHDS2 ---
Discharge Summary Date of Admission February 13, 2025 at 10:32 Date of Discharge: Feb 18, 2025 Admitting Diagnosis Acute Resp Failure Labs/Diagnostic Data: Laboratory Results Test 02/17/25 01:30 02/16/25 06:12 02/15/25 05:33 02/13/25 13:24 Stool Occult Blood Negative (Negative) Stool Occult Blood Sample #3 (Negative) White Blood Count 11.4 10^3/uL (4.4-10.8) Red Blood Count 3.12 10^6/uL (4.0-5.20) Hemoglobin 7.4 g/dL (12.2-16.2) Hematocrit 23.9 % (36.0-46.0) Mean Corpuscular Volume 76.7 fL (80.0-100.0) Mean Corpuscular Hemoglobin 23.8 pg (28.0-32.0) Mean Corpuscular Hemoglobin Concent 31.1 g/dL (32.0-36.0) Red Cell Distribution Width 18.5 % (11.8-14.3) Platelet Count 249 10^3/uL (140-450) Mean Platelet Volume 8.8 fL (6.9-10.8) Neutrophils (%) (Auto) 75.5 % (37.0-80.0) Lymphocytes (%) (Auto) 11.7 % (10.0-50.0) Monocytes (%) (Auto) 11.4 % (0.0-12.0) Eosinophils (%) (Auto) 0.8 % (0.0-7.0) Basophils (%) (Auto) 0.6 % (0.0-2.0) Neutrophils # (Auto) 8.6 10 ^3/uL (1.6-8.6) Lymphocytes # (Auto) 1.3 10 ^3/uL (0.4-5.4) Monocytes # (Auto) 1.3 10 ^3/uL (0-1.3) Eosinophils # (Auto) 0.1 10 ^3/uL (0-0.8) Basophils # (Auto) 0.1 10 ^3/uL (0-0.2) Nucleated Red Blood Cells 0.0 % Sodium Level 139 mmol/L (136-145) Potassium Level 4.0 mmol/L (3.5-5.1) Chloride Level 102 mmol/L (98-107) Carbon Dioxide Level 30 mmol/L (20-31) Anion Gap 7 (5-15) Blood Urea Nitrogen 17 mg/dL (9-23) Creatinine 0.84 mg/dL (0.550-1.02) Glomerular Filtration Rate Calc 69 mL/min (>90) BUN/Creatinine Ratio 20.2 (10.0-20.0) Serum Glucose 96 mg/dL (74-106) Calcium Level 8.5 mg/dL (8.7-10.4) Magnesium Level 2.2 mg/dL (1.6-2.6) Total Bilirubin 0.5 mg/dL (0.2-1.0) Aspartate Amino Transferase (AST) 71 U/L (13-40) Alanine Aminotransferase (ALT) 42 U/L (7-40) Alkaline Phosphatase 97 U/L (46-116) B-Type Natriuretic Peptide 408.90 pg/mL (0-100) Total Protein 5.8 g/dL (5.7-8.2) Albumin 3.7 g/dL (3.2-4.8) Reticulocyte Count (auto) 2.70 % (0.5-1.5) Iron Level 21 ug/dL (50-170) Total Iron Binding Capacity 318 ug/dL (250-425) Percent Iron Saturation 6.6 % (15-50) Ferritin 25.9 ng/mL (10-291) Lactate Dehydrogenase 403 U/L (120-246) Urine Color Yellow (Yellow) Urine Clarity Clear (Clear) Urine pH 6.0 (5.0-9.0) Urine Specific [place] > 1.050 (1.001-1.035) Urine Protein Trace (Negative) Urine Ketones Negative (Negative) Urine Blood Negative /uL (Negative) Urine Nitrite Negative (Negative) Urine Bilirubin Negative (Negative) Urine Urobilinogen 2 mg/dL (Negative) Urine Leukocyte Esterase Negative /uL (Negative) Urine RBC 1 /hpf (0 - 4) Urine Microscopic WBC 1 /HPF (0-5) Urine Squamous Epithelial Cells Few /hpf (<5) Urine Bacteria None seen /hpf (None Seen) Urine Mucus Few (None Seen) Urine Glucose Normal mg/dL (Normal) Test 02/13/25 08:13 02/13/25 05:44 02/13/25 00:00 Influenza Type A Antigen Negative (Negative) Influenza Type B Antigen Negative (Negative) Troponin I High Sensitivity 14 ng/L (</=34) SARS-CoV-2 Antigen (Rapid) Negative (NEGATIVE) Other Laboratory Tests 02/16/25 06:12 Brief Hx & Hospital Course: Christine Medina is an 84-year-old female with past medical history of hypertension, hyperlipidemia, atrial fibrillation, CHF, CVA, obesity, dementia, and hypothyroidism, who came to the hospital for shortness of breath. Patient was admitted for Acute Resp Failure, treated with Lasix, Metalozone. Patient is back on room air. Patient also will be discharged with Doxy for possible PNA. 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 Condition at Discharge: Poor Final Diagnosis/Problems List # Acute Diastolic CHF - Lasix with Metolazone # Aortic Stenosis - s/p Bioprosthetic valve in 2020 - DENISE was done May 2024 # Hemolytic Anemia - Monitor H&H # Possible Gram NEG/POS PNA - Doxy PO # Vascular Dementia # Acute Resp Failure - Titrate oxygen down # Transaminitis - Monitor LFT, may need to stop Amio # Goals of care discussion with ALANA >18 mins FULL CODE Discharge Disposition: Home Discharge Instruct/Medications Diet: Cardiac 2g Na,low cholest (2 gm sodium, low cholesterol) Activity: Light activity Activity comment: Fluid Restrictions 1000mL a day Follow Up/Referral: Dr. Hunter Medications: See [facility] Discharge Statement: "Patient was advised to return to the ER or call 911 if any headaches, dizziness, shortness of breath, chest pain, abdominal pain, bleeding, fevers, or worsening of medical condition. Patient was counseled about treatment plan, medications, possible side effects, patientverbalized understanding. All questions were answered to the best of my ability. This discharge took greater then 30 minutes in planning, reviewing documentation, counseling the patient, and discussing with other team members." ASSESSMENT ASSESSMENT Assessment Date of Service: Feb 18, 2025 Billing Provider: FELIX DE ANDA MD Common Visit Codes: [id number] DISCH DAY >30min FELIX DE ANDA MD Feb 18, 2025 09:42
[2025-02-18 10:57] VITALS: BP 116/42; PULSE 57; RESP 18; TEMP 98.4; O2SAT 99
== END 2025-02-18 12:00 | disposition home or self-care (01) | DRG 177 ==
LOC: EDBD 04:33 → ER 04:35 → OVERFLOW 10:32 → EAST 02-14 14:59
PROVIDERS: ADMIT Internal Medicine; ATTEND Internal Medicine
DX: J15.69 Pneumonia due to other Gram-negative bacteria (principal); I50.31 Acute diastolic (congestive) heart failure; J96.00 Acute respiratory failure, unspecified whether with hypoxia or hypercapnia; D58.9 Hereditary hemolytic anemia, unspecified; J15.9 Unspecified bacterial pneumonia; I11.0 Hypertensive heart disease with heart failure; E78.5 Hyperlipidemia, unspecified; E03.9 Hypothyroidism, unspecified; I35.0 Nonrheumatic aortic (valve) stenosis; Z20.822 Contact with and (suspected) exposure to COVID-19; E87.6 Hypokalemia; R74.01 Elevation of levels of liver transaminase levels; I25.10 Atherosclerotic heart disease of native coronary artery without angina pectoris; F01.50 Vascular dementia, unspecified severity, without behavioral disturbance, psychotic disturbance, mood disturbance, and anxiety; I48.91 Unspecified atrial fibrillation; Z88.1 Allergy status to other antibiotic agents; Z88.5 Allergy status to narcotic agent; Z95.1 Presence of aortocoronary bypass graft; Z79.899 Other long term (current) drug therapy; Z79.01 Long term (current) use of anticoagulants; I25.2 Old myocardial infarction
CPT/HCPCS: 36415; 70450; 70496; 70498; 71045; 71250; 80048; 80053; 81001; 82270; 82728; 83540; 83550; 83615; 83735; 83880; 84484; 85025; 85045; 87426; 87804; 94640; G0378; J1756